=== PATIENT | female | born 1930 | race Caucasian/White ===

== ENCOUNTER 2016-09-08 11:50 | Inpatient (IN) | payer MEDICARE, OTHER ==
[2016-09-07 23:45] VITALS: RESP 28
[~2016-09-08] VITALS: Ht 167.6 cm; Wt 71.1 kg
[~2016-09-08 11:50] MED LIST: ACET650T85 PO; AMIO200T PO; AMLO2.5T2 PO; CLON-379 PO; EPINEPHrine 0.1 MG/ML SYG ONE; ESCI10TA PO; FURO40TA4 PO; INSU100C SC; INSU100C3; LEVA0.6320 HHN; MAGN311T3 PO; NA BICARBONATE 8.4% 50 ML SYG ONE; NITR1PAT5 TOP; OLAN5TAB19 PO; OSCAL PO; PRED20TA PO; ROCURONIUM 50 MG INJ ONE; RTATR HHN; [UNRECOGNIZED DRUG - CODE] IVPB
[2016-09-08] MEDS ORDERED: PROPOFOL 100 ML IV STA (11:57)
[2016-09-08] MEDS ORDERED: HYDROmorphONE 1 MG/ML SYG IV ONE (12:00)
[2016-09-08] MEDS ORDERED: MIDAZOLAM (DRIP) 50 mg/50 mL 50 ML IV STA (12:27)
[2016-09-08] MEDS ORDERED: ALBUTEROL 0.5% (NEB) 2.5 MG/0.5 ML AMP INH STA (12:27)
[2016-09-08] MEDS ORDERED: LORAZEPAM 2 MG INJ ONE (12:28)
[2016-09-08] MEDS ORDERED: LORAZEPAM 2 MG INJ IV ONE (12:30)
[2016-09-08] MEDS ORDERED: CEFEPIME 1GM/50 ML (PMX) 50 ML IVPB ONE (12:30)
[2016-09-08] MEDS ORDERED: SOD CHLORIDE 0.9% 1,000 ML IV ONE (12:30)
[2016-09-08 12:37] LABS: ADD SCAN DIFF NO
[2016-09-08] MEDS ORDERED: DEXMEDETOMIDINE HCL 200 MCG in SOD CHLORIDE 0.9% 48 ML IV STA (12:39)
[2016-09-08 12:40] LABS: ABNORMAL IP MESSAGE 1; HEMATOCRIT 33.3 % (37.0-47.0); HEMOGLOBIN 10.9 g/dl (12.0-16.0); MEAN CORPUSCULAR HEMOGLOBIN 32.3 pg (29.0-33.0); MEAN CORPUSCULAR HGB CONC 32.7 g/dl (32.0-37.0); MEAN CORPUSCULAR VOLUME 98.8 fl (82.0-101.0); MEAN PLATELET VOLUME 14.8 fl (7.4-10.4); PLATELET COUNT 80 10^3/UL (140-415); RED BLOOD COUNT 3.37 10^6/ul (4.20-5.40); RED CELL DISTRIBUTION WIDTH 14.7 % (11.5-14.5); WHITE BLOOD COUNT 6.2 10^3/ul (4.8-10.8)
[2016-09-08 12:49] LABS: POTASSIUM 3.8 mmol/L (3.5-5.1)
[2016-09-08 12:51] LABS: ALBUMIN/GLOBULIN RATIO 0.86; CREATININE 2.67 mg/dl (0.44-1.00); INR 3.4; PROTIME 34.9 Sec (12.2-14.2); PT RATIO 2.7; TOTAL PROTEIN 4.3 g/dl (6.1-8.1)
[2016-09-08 12:52] LABS: CALCIUM 9.2 mg/dl (8.4-10.2)
[2016-09-08 13:05] LABS: ADD UMIC YES; URINE BILIRUBIN (Dip) 1+ (NEGATIVE); URINE BLOOD (Dip) 1+ (NEGATIVE); URINE COLOR YELLOW (YELLOW); URINE GLUCOSE (Dip) NEGATIVE (NEGATIVE); URINE KETONES (Dip) TRACE (NEGATIVE); URINE LEUKOCYTE ESTERASE (Dip) 2+ (NEGATIVE); URINE NITRITE (Dip) NEGATIVE (NEGATIVE); URINE TOTAL PROTEIN (Dip) 1+ (NEGATIVE); URINE UROBILINOGEN (Dip) 0.2 E.U./dL (0.1-1.0)
[2016-09-08 13:10] LABS: AADO2 Arterial 287.2 mmHg (7.0-24.0); Allen Test ACCEPTAB; Arterial Base Excess -11.5 mmol/L (-3.0-3); Arterial COHb 0.2 % (0.0-3.0); Arterial Fraction of Oxyhgb 98.7 % (93.0-99.0); Arterial HCO3 11.4 mmol/L (22.0-26.0); Arterial MetHb 0.3 % (0.0-1.5); Arterial Total Hemglobin 12.3 g/dl (12.0-18.0); MODE VENT - AC
[2016-09-08 13:10] LABS: TROPONIN-I 2.31 ng/ml (0.00-0.12)
[2016-09-08 13:15] LABS: BURR CELLS FEW; LYMPHOCYTES # 2.4 10^3/ul (0.8-2.9); MONOCYTE # 0.2 10^3/ul (0.3-0.9); NEUTROPHIL # 3.6 10^3/ul (1.6-7.5); OVALOCYTES OCCASIONAL
[2016-09-08 13:18] LABS: BACTERIA,URINE FEW; SQUAMOUS EPITHELIAL CELL,UR FEW; URINE RBCS 0-2 /HPF (0)
[2016-09-08] MEDS ORDERED: DOCU-159 PO (13:18)
[2016-09-08] MEDS ORDERED: BUME1TAB18 PO (13:18)
[2016-09-08] MEDS ORDERED: DULR PR (13:19)
[2016-09-08] MEDS ORDERED: FLEETOIL PR (13:20)
[2016-09-08] MEDS ORDERED: DEXT38GE15 PO (13:21)
[2016-09-08] MEDS ORDERED: MAGN400O4 PO (13:21)
[2016-09-08] MEDS ORDERED: CALC500T91 PO (13:22)
[2016-09-08] MEDS ORDERED: MULTI PO (13:22)
[2016-09-08] MEDS ORDERED: POTA20TA96 PO (13:23)
[2016-09-08] MEDS ORDERED: PANT40TA3 PO (13:23)
[2016-09-08] MEDS ORDERED: SENN-53 PO (13:24)
[2016-09-08] MEDS ORDERED: CRAN3875 PO (13:24)
[2016-09-08] MEDS ORDERED: RIVA15TA PO (13:25)
[2016-09-08] MEDS ORDERED: HYDROCORTISONE 100 MG INJ IV ONE ×2 (13:30→14:00)
--- NOTE | 2016-09-08 13:33 | ERA ---
ER Documentation Chief Complaint Date/Time DATE: 09/08/16 TIME: 13:13 Chief Complaint BIB RA39 FOR EVAL OF STEMI FROM EKG IN FIELD. HPI 86-year-old woman brought in by EMS from group home for dyspnea and low oxygen saturation. Patient also had decreased mental status during this time. Prior to the shortness of breath patient had no complaints of chest pain or palpitations, no recent fevers or chills, no vomiting or diarrhea. HPI was limited as patient was nonverbal although supplemented by speaking to EMS, reviewing past medical history, group home records, and speaking to nurses. ROS All systems reviewed and are negative except as per history of present illness. Medications Home Meds Reported Medications Rivaroxaban* (Xarelto*) 15 Mg Tablet, 15 MG PO WITH BREAKFAST DINNE, TAB 09/08/16 Cran/Vitc/Mannose/Inulin/Brom (Uti-Stat Liquid) 3,875 Mg/30 Ml Liquid, 3875 MG PO BID 09/08/16 Sennosides* (Senna Lax*) 8.6 Mg Tablet, 1 TAB PO DAILY, TAB 09/08/16 Pantoprazole* (Protonix*) 40 Mg Tablet.dr, 40 MG PO AC BREAKFAST, TAB 09/08/16 Potassium Chloride* (Potassium Chloride*) 20 Meq Tablet.er, 20 MEQ PO BID, TAB.SA 09/08/16 Calcium Carbonate ([id number]) 500 Mg Tablet, 500 MG PO DAILY, TAB 09/08/16 Multivitamins* (Theragran*) 1 Tab Tab, 1 TAB PO DAILY, TAB 09/08/16 Magnesium Hydroxide* (Milk Of Magnesia*) 400 Mg/5 Ml Oral.susp, 30 ML PO Q24H Y for CONSTIPATION, ML 09/08/16 Dextrose (Glucose Gel) 38 Gm Gel..gram., 1 APPLIC PO BID Y for blood sugar below 60 09/08/16 Mineral Oil* (Fleet* Mineral Oil Enema) 133 Ml Oil, 133 ML MA DAILY Y for CONSTIPATION, ENEMA 09/08/16 Bisacodyl* (Bisacodyl*) 10 Mg Supp, 10 MG MA Q24H Y for CONSTIPATION, SUPP 09/08/16 Docusate Sodium* (Docusate Sodium*) 100 Mg Capsule, 200 MG PO QHS, #30 CAP 09/08/16 Bumetanide* (Bumetanide*) 1 Mg Tablet, 1 MG PO BID, TAB 09/08/16 Acetaminophen (Tylenol 8 Hour) 650 Mg Tablet.sa, 650 MG PO Q4H PRN 06/12/11 Amiodarone Hcl* (Amiodarone Hcl*) 200 Mg Tablet, 200 MG PO DAILY 06/12/11 Discontinued Reported Medications Olanzapine (Zyprexa) 5 Mg Tablet, PO HS 06/12/11 Escitalopram Oxalate* (Lexapro*) 10 Mg Tablet, PO DAILY 06/12/11 Insulin Lispro (Humalog) 100 U/Ml Cartridge, 4 UNITS SC TID 06/12/11 Insulin Aspart (Novolog) 100 U/Ml Cartridge 06/12/11 Magnesium Hydroxide (Milk Of Magnesia) 311 Mg Tab.chew, 30 PO HS 06/12/11 Clonidine Hcl* (Clonidine Hcl*) 0.1 Mg Tab, PO Q6H PRN 06/12/11 Levalbuterol (Xopenex) 0.63 Mg/3 Ml Nebu, HHN Q6H PRN 06/12/11 Ipratropium Webb* (Atrovent*) 2.5 Ml Nebu, HHN Q6H PRN 06/12/11 Levofloxacin/Dextrose 5%-Water (Levaquin 250 Mg/50 Ml D5w) 250 Mg/50 Ml Piggyback, IVPB DAILY 06/12/11 Prednisone (Prednisone) 20 Mg Tablet, PO DAILY 06/12/11 Nitroglycerin* (Nitroglycerin* Patch) 1 Patch .24 H Patch.td24, TOP BID 06/12/11 [Oscal] No Conflict Check, 500 MG PO DAILY 06/12/11 Amlodipine Besylate* (Norvasc*) 2.5 Mg Tablet, PO DAILY 06/12/11 Levalbuterol (Xopenex) 0.63 Mg/3 Ml Nebu, HHN Q6H PRN 06/12/11 Furosemide (Lasix) 40 Mg Tab, PO DAILY 06/12/11 Allergies Allergies: Coded Allergies: No Known Allergy (Verified , 06/12/11) PMhx/Soc Atrial fibrillation, congestive heart failure, previous anasarca, chronic kidney disease, hypertension, thrombocytopenia, cardiomegaly, dementia, chronic obstructive pulmonary disease History of Surgery: No Anesthesia Reaction: No Hx Neurological Disorder: No Hx Respiratory Disorders: Yes (PNEUMONIA) Hx Cardiac Disorders: Yes (CHF) Hx Psychiatric Problems: Yes (PSYCHOSIS) Hx Miscellaneous Medical Probl: Yes (htn, DMpericardial effusion,afib,COPD, asthma) Hx Alcohol Use: No Hx Substance Use: No Hx Tobacco Use: No FmHx Family History: coronary disease Physical Exam Vitals Vital Signs Date Time Temp Pulse Resp B/P Pulse Ox O2 Delivery O2 Flow Rate FiO2 09/08/16 12:54 59 76/36 21 Mechanical Ventilator 09/08/16 12:23 100 24 100 09/08/16 11:50 96.9 176 10 50/23 86 09/08/16 11:50 Non Rebreather 15 09/07/16 23:45 94 28 100 50 Physical Exam GENERAL: Elderly, chronically debilitated woman, unresponsive, agonal breaths, afebrile HEENT: Dry mucous membranes, pink conjunctivo-, no cervical spine deformity, pupils equal round reactive to light NEURO: Patient withdraws from pain, pupils equal round reactive to light, eyes closed, nonverbal CARDIAC: Tachycardic and regular, hypotensive LUNGS: Poor breath sounds bilaterally, crackles bilaterally, no wheezing or stridor ABDOMEN: Soft nontender, no guarding, no rigidity, no rebound, no psoas sign no obturator sign. Normoactive bowel sounds SKIN: Cool and dry, mottled to the distal extremities, no lacerations or abrasions noted EXTREMITIES: No clubbing, calves are bilaterally symmetrical, no Homans sign, mottled extremities bilaterally, poor distal pulses PSYCH: Unable to assess Result Diagram: 09/09/166 09/09/166 Results 24 hrs Laboratory Tests Test 09/08/16 11:57 09/08/16 12:30 09/08/16 12:45 Arterial Blood HCO3 11.4mmol/L Arterial Blood Base Excess -11.5mmol/L Arterial Blood Oxygen Saturation 99.2mmHG Christofer Test ACCEPTAB Arterial Blood Gas Puncture Site Right Radial Arterial Blood Carboxyhemoglobin 0.2% Arterial Blood Date Drawn 09/08/2016 1:00:49 PM Arterial Blood Methemoglobin 0.3% Arterial Blood pCO2 (Temp correct) 19.7mmhg Arterial Blood pH (Temp corrected) 7.380 Arterial Blood pO2 (Temp corrected) 406.1mmHG Blood Gas A-a O2 Differential 287.2mmHg Blood Gas Actual Respiration Rate 24 Blood Gas Low PEEP Setting 5.0cmH2O Blood Gas Modality VENT - AC Blood Gas Notified Time 09/08/2016 1:10:43 PM Blood Gas Notified Whom RT Blood Gas Respiration Rate 14.0 Blood Gas Specimen Source Blood arterial Blood Gas Temperature 37.0C Blood Gas Tidal Volume 500.0mL FiO2 100.0% Oxyhemoglobin Percent 98.7% Total Hemoglobin 12.3g/dl Activated Partial Thromboplast Time 30.0Sec Alanine Aminotransferase (ALT/SGPT) 48IU/L Albumin 2.0g/dl Albumin/Globulin Ratio 0.86 Alkaline Phosphatase 48IU/L Anion Gap 18 Aspartate Amino Transf (AST/SGOT) 50IU/L B-Type Natriuretic Peptide 75754BW/ML Blood Urea Nitrogen 108mg/dl Calcium Level 9.2mg/dl Carbon Dioxide Level 18mmol/L Chloride Level 118mmol/L Creatinine 2.67mg/dl Differential Comment MANUAL DIFF Direct Bilirubin 0.00mg/dl Giant Platelets OCCASIONAL Globulin 2.30g/dl Glucose Level 117mg/dl Hematocrit 33.3% Hemoglobin 10.9g/dl INR International Normalized Ratio 3.40 Indirect Bilirubin 1.0mg/dl Lactic Acid Level 3.8mmol/L Lymphocytes # 2.410^3/ul Lymphocytes % 39.0% Mean Corpuscular Hemoglobin 32.3pg Mean Corpuscular Hemoglobin Concent 32.7g/dl Mean Corpuscular Volume 98.8fl Mean Platelet Volume 14.8fl Monocytes # 0.210^3/ul Monocytes % 3.0% Neutrophils # 3.610^3/ul Neutrophils % 58.0% Ovalocytes OCCASIONAL Platelet Count 8010^3/UL Potassium Level 3.8mmol/L Prothrombin Time 34.9Sec Prothrombin Time Ratio 2.7 Red Blood Count 3.3710^6/ul Red Cell Distribution Width 14.7% Sodium Level 150mmol/L Thyroid Stimulating Hormone (TSH) 2.590MIU/L Total Bilirubin 1.0mg/dl Total Protein 4.3g/dl Troponin I 2.310ng/ml White Blood Count 6.210^3/ul Urine Bacteria FEW Urine Bilirubin 1+ Urine Clarity SLIGHTLY CLOUDY Urine Color YELLOW Urine Glucose NEGATIVE% Urine Hemoglobin 1+ Urine Ictotest NEGATIVE Urine Ketones TRACE Urine Leukocyte Esterase 2+ Urine Microscopic RBC 0-2/HPF Urine Microscopic WBC 10-25/HPF Urine Nitrite NEGATIVE Urine Specific [place] 1.025 Urine Squamous Epithelial Cells FEW Urine Total Protein 1+ Urine Urobilinogen 0.2 E.U./dL Urine pH 5.0 Current Medications Medications (Trade) Dose Ordered Sig/[place] Route PRN Reason Start Time Stop Time Status Last Admin Dose Admin Hydromorphone HCl 1 mg 1 mg ONCE ONCE IV 09/08/16 12:00 09/08/16 12:01 DC Propofol (Diprivan) 100 ml @ 0 mls/hr ONCE STAT IV 09/08/16 11:57 09/08/16 12:30 DC Lorazepam (Ativan) 2 mg STK-MED ONCE .ROUTE 09/08/16 12:28 09/08/16 12:29 DC Lorazepam 2 mg 2 mg ONCE ONCE IV 09/08/16 12:30 09/08/16 12:32 DC 09/08/16 12:38 Midazolam HCl 50 ml @ 3 mls/hr ONCE STAT IV 09/08/16 12:27 09/09/16 01:06 DC Norepinephrine 250 ml @ 1.875 mls/ hr TITRATE IV 09/08/16 12:30 09/09/16 03:02 Sodium Chloride 1,000 ml @ 2,000 mls/hr Q30M ONCE IV 09/08/16 12:30 09/08/16 12:59 DC 09/08/16 12:47 Cefepime HCl (Maxipime 1gm/50 ml (Pmx)) 50 ml @ 100 mls/hr ONCE ONCE IVPB 09/08/16 12:30 09/08/16 12:59 DC 09/08/16 13:19 Albuterol 10 mg 10 mg ONCE STAT INH 09/08/16 12:27 09/08/16 12:32 DC 09/08/16 13:26 Dexmedetomidine HCl/Sodium Chloride (Precedex/NS) 50 ml @ 0 mls/hr TITRATE STAT IV 09/08/16 12:39 09/08/16 12:41 DC 09/08/16 13:21 Procedures/MDM IV line was established patient was placed on eyelet cutter rhythm strip revealed a wide-complex tachycardia at 170 bpm. Patient was afebrile hypotensive, unresponsive with agonal breathing. Endotracheal Intubation performed by me, indication was hypotension, hypoxia, and respiratory failure: Pre assessment performed. Paralyzed with succinylcholine 100 mg IV 2 Pre-oxygenation performed with 100% oxygen RSI: Performed w/o complication or hypoxic events. Medications as ordered. Blade: Mac 4 ET Tube: 7.5 cm Depth: 21 cm at the lip Intubation confirmed by colorimetric CO2, equal breath sounds, quiet over the stomach. Central Line Placement by me: Patient consented, sterilely draped, full prep, gown, glove, mask, time out performed. Anesthesia: 1% lidocaine locally Location: Right subclavian vein Device: Multiple lumen Technique: Seldinger technique. Secured with suture. Results: Venous return from all ports with easy saline flush. No complications. The entire Guide wire retrieved and disposed of. Chest X-ray 1V Interpreted by me: 4 cm above the raf ET tube. Central line is in place in the right subclavian vein there is pulmonary infiltrates in the right middle and lower lobe, cardiomegaly, no pneumothorax, no end of the diaphragm. Post intubation patient remained hypotensive with a wide-complex tachycardia, given her history of atrial fibrillation I treated her with diltiazem 25 mg IV 1 with no response or change in her rhythm, I then administered amiodarone 150 mg IV 2 doses and again with no change in her cardiac rhythm. Given her continued refractory hypotension I performed electrical synchronized cardioversion with 120 J of electricity and her rate immediately improved to about 80 bpm and continued atrial fibrillation, although patient did lose pulses and required 1 round of advanced cardiac life support with chest compressions and 1 dose of epinephrine 1 mg IV. Please refer to resuscitation log for times, dosages, and medications given during the short resuscitation. Initial EKG performed immediately post intubation revealed a wide-complex tachycardia most likely atrial fibrillation with rapid ventricular rate of 171 bpm, left axis deviation and a right bundle branch block EKG #2 was performed after electrical cardioversion reveals an atrial fibrillation rate controlled a 67 bpm, normal axis narrow QRS complex with PVCs , no concerning ST elevation or depression noted. EKG #3 was performed after IV fluid hydration again revealed an atrial fibrillation bradycardic at 54 bpm, normal axis, narrow QRS complex with poor amplitude, positive PVCs, no acute ST elevation or depression noted. I administered about 4 L normal saline intravenously for refractory hypotension followed by norepinephrine drip titrated to keep systolic blood pressure over 90 mmHg. Patient also received albuterol 10 mg via nebulizer, cefepime 1 g IV, vancomycin 1 g IV, and hydrocortisone 100 mg IV 1. For sedation I gave her a small bolus of lorazepam followed by midazolam drip. Postintubation ABG revealed a pH of 7.38, PCO2 20, PO2 406, revealing good oxygenation and respiratory alkalosis, patient is breathing over the mechanical ventilator and so tidal volume reduced to 450, FiO2 reduced to 50%. CBC was unremarkable with mild thrombocytopenia 80,000, electrolytes revealed dehydration and renal insufficiency with a BUN/creatinine of 108/2.7, sodium elevated at 150, liver function tests were normal, troponin elevated at 2.3, lactic acid elevated at 3.8, urine analysis was positive for infection. BNP elevated at about 60,000. Patient will be admitted to the intensive care unit under Dr. Schmidt who I spoke to. Pulmonology was consulted and saw the patient at the bedside. Patient's infectious symptoms have not stabilized and the patient is at risk of rapid decompensation. The patient will be admitted for careful hydration, antibiotic therapy, and infectious source control. Severe Sepsis Assessment: Infectious Source: Urinary tract infection End organ damage indicated by: Lactate > 2.3 mmol/L Hypotension( SBP < 90 or >40 mmHG drop or MAP < 65) Acute Resp Failure (sat < 92% w/o oxygen) Severe Sepsis Managment: Blood Cultures X 2 before broad spectrum antibiotics initiated within 3 hours of recognition. 30 ml/kg NS bolus Completed Initial Lactate: 3.8 Repeat Lactate 4.5 Critical Care: Time: 45 minutes Treatments/Evaluations: Emergent fluid management, while maintaining close respiratory support. Immediate broad spectrum antibiotic therapy. Simultaneous assessment for possible sources in order to direct therapy. Consideration for invasive and chemical support to prevent respiratory or cardiac collapse. Septic Shock Assessment (1 hour post 30 ml/kg fluid bolus): Hypotension (SBP < 90 or 40 mmHg drop, MAP < 65): Yes Lactic acid > 4.0 yes Perfusion Reassessment for Septic Shock: Temp afebrile, Pulse 60, RR 24, BP 90/60 Heart Exam: 60 Lung Exam: No Crackles Capillary Refill: Delayed Peripheral Pulses: Radially present Skin: Mottled, pale Hypotensive Treatment (not required for isolated lactic acid elevation): Comfort Care: No Central LIne: Right subclavian vein Vasopressor started: norepinephrine I considered further perfusion assessment with CVP measurement, SCVO2, bedside ultrasound volume assessment, passive leg raise, trial of further fluid bolus. And preceded with all the above Accepting Care Team: Current data and ongoing care discussed. Time: Time of admission Primary Provider: Dr. Schmidt Consulting: Cardiology and pulmonology Outstanding Data: none Departure Diagnosis: Primary Impression: Acute respiratory failure Qualified Code: J96.01 - Acute respiratory failure with hypoxia and hypercapnia Additional Impressions: Atrial fibrillation with RVR Acute encephalopathy Dehydration CHF (congestive heart failure) Qualified Code: I50.23 - Acute on chronic systolic congestive heart failure UTI (urinary tract infection) Qualified Code: N30.00 - Acute cystitis without hematuria Septic shock Condition: Critical SERENA BOATENG MD Sep 08, 2016 13:31
[2016-09-08] MEDS: NORepinephrine 8MG/250 ML (PMX 250 ML IV SCH ×3 (13:39→22:22)
--- NOTE | 2016-09-08 13:48 | RADRPT ---
PROCEDURE: XR Chest. CLINICAL INDICATION: Sepsis. Shortness of breath. Endotracheal tube position. TECHNIQUE: Single frontal view. COMPARISON: 06 12 20:11. FINDINGS: The endotracheal tube tip is at the level of the lower clavicles and is in satisfactory position. T he right subclavian vein catheter tip is in the cavoatrial junction region.. There is extensive pat lucia consolidation throughout the right lung consistent with pneumonia. The left lung is clear. The heart is enlarged. Calcification is present in the aorta consistent with atherosclerosis. There is no pleural effusion. There is no pneumothorax. IMPRESSION: 1. Endotracheal tube and right subclavian vein catheter in satisfactory position. 2. Extensive right sided pneumonia. 3. Cardiomegaly and atherosclerosis. 4. No pneumothorax. RPTAT: QQ .Jose Watts MD, MD Date Time Electronically viewed and signed by .Jose Watts MD, MD on 09/08/2016 13:47 .R/
--- NOTE | 2016-09-08 13:53 | CONS ---
Date/Time of Note Date/Time of Note DATE: 09/08/16 TIME: 13:48 Assessment/Plan Assessment/Plan Additional Assessment/Plan Ventilator settings are AC of 14, tidal volume 450, PEEP of 5, 50% FiO2. Next Chest x-ray was reviewed showing a right upper and lower lobe infiltrates. Assessment recommendations; 1. patient admitted with cardiac arrest status post CPR with revival of vital signs currently extremely hypotensive on high-dose pressor support. 2. Sepsis from severe pneumonia. Currently on appropriate antibiotic regimen. 3. Status post adequate fluid resuscitation. 4. Long-term prednisone use , likely with underlying adrenal insufficiency. Continue current treatment. Patient prognosis appears extremely poor. At this time I would recommend adding a cortisone 100 mg IV every 6 hours at least for 4 doses. Consultation Date/Type/Reason Admit Date/Time Date of Consultation: Sep 08, 2016 Type of Consultation: Pulmonary/critical care Hx of Present Illness Consultations requested for management of respiratory failure. Next History presenting; patient is a 86-year-old white lady who was brought into the hospital after the patient apparently sustained a cardiac arrest altered of the hospital the patient also required CPR lasting about 3 minutes with revival of vital signs. By the time I saw the patient and ER the patient is orally intubated is severely hypotensive with maxed out doses of Levophed. Patient also has been adequately fluid resuscitated. She was obtained from medical records. Next Past medical history; Medications; were reviewed. Allergies; are none. Next Social history; not available. Family history, occupational history is not available. Review of systems; currently under able to be obtained. Next General exam; elderly lady orally intubated, unresponsive. 1. History of renal insufficiency. 2. History of COPD, patient on long-term steroid use. 3. History of abdominal surgery. Exam/Review of Systems Vital Signs Vitals Vital Signs Date Time Temp Pulse Resp B/P Pulse Ox O2 Delivery O2 Flow Rate FiO2 09/08/16 13:40 46 70/47 09/08/16 13:13 19 96 Mechanical Ventilator 09/08/16 12:23 100 09/08/16 11:50 96.9 09/08/16 11:50 15 Exam H EENT examination; supple neck, positive JVD. No lymphadenopathy. Midline trachea. Small pupils bilaterally. Vision is fair dentition. No neck masses. No thyromegaly. Chest examination; poor breath sounds bilaterally. No added sounds. S1-S2 audible, irregular rhythm. Abdomen examination soft, umbilicus is inverted. There is a very small epigastric scar present. Bowel sounds are absent. Extremity exam is; no peripheral edema. Femoral pulses 1+ bilaterally. Dorsal pedis and posterior tibial pulses are palpable bilaterally. There are chronic appearing lower extremity skin changes. 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 Results Result Diagram: 09/08/16 1230 09/08/16 1230 Results 24 hrs Laboratory Tests Test 09/08/16 11:57 09/08/16 12:30 09/08/16 12:45 Arterial Blood HCO3 11.4 L Arterial Blood Base Excess -11.5 L Arterial Blood Oxygen Saturation 99.2 Christofer Test ACCEPTAB Arterial Blood Gas Puncture Site Right Radial Arterial Blood Carboxyhemoglobin 0.2 Arterial Blood Date Drawn 09/08/2016 1:00:49 PM Arterial Blood Methemoglobin 0.3 Arterial Blood pCO2 (Temp correct) 19.7 L Arterial Blood pH (Temp corrected) 7.380 Arterial Blood pO2 (Temp corrected) 406.1 H Blood Gas A-a O2 Differential 287.2 H Blood Gas Actual Respiration Rate 24 Blood Gas Low PEEP Setting 5.0 Blood Gas Modality VENT - AC Blood Gas Notified Time 09/08/2016 1:10:43 PM Blood Gas Notified Whom RT Blood Gas Respiration Rate 14.0 Blood Gas Specimen Source Blood arterial Blood Gas Temperature 37.0 Blood Gas Tidal Volume 500.0 FiO2 100.0 Oxyhemoglobin Percent 98.7 Total Hemoglobin 12.3 Activated Partial Thromboplast Time 30.0 Alanine Aminotransferase (ALT/SGPT) 48 Albumin 2.0 L Albumin/Globulin Ratio 0.86 Alkaline Phosphatase 48 Anion Gap 18 H Aspartate Amino Transf (AST/SGOT) 50 H B-Type Natriuretic Peptide 45492 H Blood Urea Nitrogen 108 H Calcium Level 9.2 Carbon Dioxide Level 18 L Chloride Level 118 H Creatinine 2.67 H Differential Comment MANUAL DIFF Direct Bilirubin 0.00 Giant Platelets OCCASIONAL Globulin 2.30 Glucose Level 117 Hematocrit 33.3 L Hemoglobin 10.9 L INR International Normalized Ratio 3.40 Indirect Bilirubin 1.0 Lactic Acid Level 3.8 H Lymphocytes # 2.4 Lymphocytes % 39.0 Mean Corpuscular Hemoglobin 32.3 Mean Corpuscular Hemoglobin Concent 32.7 Mean Corpuscular Volume 98.8 Mean Platelet Volume 14.8 H Monocytes # 0.2 L Monocytes % 3.0 Neutrophils # 3.6 Neutrophils % 58.0 Ovalocytes OCCASIONAL Platelet Count 80 L Potassium Level 3.8 Prothrombin Time 34.9 H Prothrombin Time Ratio 2.7 Red Blood Count 3.37 L Red Cell Distribution Width 14.7 H Sodium Level 150 H Total Bilirubin 1.0 Total Protein 4.3 L Troponin I 2.310 *H White Blood Count 6.2 Urine Bacteria FEW Urine Bilirubin 1+ H Urine Clarity SLIGHTLY CLOUDY Urine Color YELLOW Urine Glucose NEGATIVE Urine Hemoglobin 1+ H Urine Ictotest Pending Urine Ketones TRACE H Urine Leukocyte Esterase 2+ H Urine Microscopic RBC 0-2 Urine Microscopic WBC 10-25 Urine Nitrite NEGATIVE Urine Specific [place] 1.025 Urine Squamous Epithelial Cells FEW Urine Total Protein 1+ H Urine Urobilinogen 0.2 E.U./dL Urine pH 5.0 Medications Medications Current Medications Norepinephrine 250 ml @ 1.875 mls/ hr TITRATE IV Last administered on 13:39; Admin Dose 18.75 MLS/HR; Start 09/08/16 at 12:30 Vancomycin HCl (Vancocin) 250 ml @ 125 mls/hr ONCE IVPB ; Start 09/08/16 at 14: 00; Stop 09/08/16 at 15:59 JENSEN LOPEZ Sep 08, 2016 13:53
[2016-09-08] MEDS ORDERED: VANCOMYCIN 1 GM (PMX) 250 ML IVPB SCH (14:00)
[2016-09-08 14:14] LABS: ICTOTEST NEGATIVE (NEGATIVE)
--- NOTE | 2016-09-08 16:25 | QN ---
Documentation Comment A/P SEPSIS TARIK LOW PLATELET AFIB ASHD ANEMIA DEHYDRATION PLAN PER ORDER ALLYN BERMUDEZ MD Sep 08, 2016 16:25
[2016-09-08] MEDS ORDERED: ALBUTEROL/IPRATROPIUM (NEB) 3 ML AMP NEB PRN (16:30)
[2016-09-08] MEDS ORDERED: BISACODYL (EC) 5 MG TAB PO PRN (16:30)
[2016-09-08] MEDS ORDERED: VANCOMYCIN IV PER PHARMACY XX SCH (16:30)
[2016-09-08] MEDS ORDERED: ONDANSETRON 4 MG INJ IV PRN (16:30)
[2016-09-08] MEDS ORDERED: ACETAMINOPHEN 650 MG SUPP PR PRN (16:30)
[2016-09-08] MEDS ORDERED: NITROGLYCERIN (SL) 0.4 MG TAB SL PRN (16:30)
[2016-09-08] MEDS ORDERED: NALOXONE (0.4 MG/ML) INJ IV PRN (16:30)
[2016-09-08] MEDS ORDERED: ACETAMINOPHEN 325 MG TAB PO PRN (16:30)
[2016-09-08] MEDS ORDERED: MAGNESIUM HYDROXIDE 30ML CUP PO PRN (16:30)
[2016-09-08] MEDS ORDERED: DOCUSATE SODIUM 100 MG CAP PO PRN (16:30)
[2016-09-08] MEDS ORDERED: FLUMAZENIL 0.5 MG INJ IV PRN (16:30)
[2016-09-08] MEDS ORDERED: ACETAMINOPHEN 650MG/20.3ML CUP PO PRN (16:30)
[2016-09-08] MEDS: DEXTROSE 5%-0.45% NACL 1,000 ML IV SCH ×2 (16:59→23:06)
--- NOTE | 2016-09-08 17:12 | CONS ---
DATE OF ADMISSION: 09/08/2016 DATE OF CONSULTATION: 09/08/2016 REASON FOR CONSULTATION: Hypotension, cardiac arrhythmia. REQUESTING PHYSICIAN: Dr. Wilmar Bermudez. HISTORY OF PRESENT ILLNESS: Ms. Douglas is an 86-year-old female with a history of atrial fibrillati on, previously on amiodarone and Xarelto, diabetes mellitus, COPD, hypertension, congestive heart fa ilure on medications, who presented with altered mental state, hypotension, tachycardia, respiratory failure. Upon arrival in the emergency department, temperature 96.9, blood pressure 50/23, pulse 1 76, respiratory rate 24, saturating 86% on 15 liters. Patient's labs were notable for white count o f 6.2, hemoglobin 10.9, platelet count of 80, sodium 150, potassium 2.8, creatinine 2.6, BUN 108, T 50, ALT 48. Troponin 2.31. BNP of 59,800. White blood cell count 6.2, hemoglobin 10.9, platelet count of 80. INR 3.4. UA positive. ABG revealing a pH of 7.38, PaO2 of 406, a pCO2 of 19. Patie nt subsequently upon arrival in the emergency department required emergent intubation and received c ardioversion for atrial fibrillation with rapid ventricular response due to hypertensive shock state . Patient was shocked and returned to a sinus rhythm, sinus lorenzo, required ACLS protocol with epin ephrine, with thereafter increase in heart rate, and patient has remained with reasonable heart rate on pressure support with blood pressures most recently in the 80s on increasing doses of Levophed. PAST MEDICAL HISTORY: As above in HPI. MEDICATIONS PRIOR TO ADMIT: 1. Xarelto 15 mg daily. 2. Amiodarone 200 mg daily. 3. Tylenol 650 mg q.4h. p.r.n. 4. Bumex 1 mg p.o. b.i.d. 5. Potassium chloride 20 mEq b.i.d. 6. Dulcolax p.r.n. 7. Magnesium hydroxide p.r.n. 9. Mineral oil p.r.n. 9. Protonix 40 mg daily. ALLERGIES: NO KNOWN DRUG ALLERGIES. SOCIAL HISTORY: No tobacco, ETOH, or illicit drug use. FAMILY HISTORY: No history of sudden cardiac or early CAD. REVIEW OF SYSTEMS: As noted above in HPI. CONSTITUTIONAL: No current fevers. PULMONARY: Respiratory failure, status post intubation. GASTROINTESTINAL: No vomiting. GENITOURINARY: Renal failure. PSYCHIATRIC: No documented psychiatric history. NEUROLOGIC: Altered mental state, encephalopathy. CARDIOVASCULAR: Paroxysmal atrial fibrillation, status post cardioversion, hypotension, positive tr oponin. ENDOCRINE: Diabetes mellitus. PHYSICAL EXAMINATION: VITAL SIGNS: Temperature 96.9, blood pressure most recently 97/59, pulse in the 50s, saturating 94% . GENERAL: The patient is intubated, nonresponsive. NECK: JVP approximately 10 cm water. CHEST: Bibasilar crackles. HEART: Bradycardic. Regular rhythm. Normal S1, S2, I/ systolic murmur. ABDOMEN: Positive bowel sounds, soft. EXTREMITIES: Trace edema bilaterally. Difficult to palpate distal pulses bilaterally, posterior ti bial, mottling of the lower extremities. LABORATORIES: As above in HPI, with most recent from today, sodium 150, potassium 3.8, creatinine 2 .67, BUN of 108. AST 50, ALT 40, troponin 2.31. BNP 59,800. INR 3.4. White count 6.2, hemoglobin 10.9, platelet count of 80. ABG revealing a pH of 7.38, PaO2 406, pCO2 of 19.7. UA positive. IMAGING STUDIES: Chest x-ray from today revealing endotracheal tube and right subclavian vein win[address] ter in satisfactory position, extensive right-sided pneumonia, cardiomegaly, and atherosclerosis. ECG: Initially revealed a wide complex tachycardia at a rate of 171 with, right superior axis devia tion, poor R-wave progression across the precordial leads, status post cardioversion. Followu p EKG revealed a rhythm more were consistent with sinus bradycardia, prolonged first-degree AV block , frequent PVCs, low voltage. IMPRESSION: 1. Hypotension/shock state, question septic versus cardiogenic, likely septic. 2. Wide complex tachycardia concerning for a nonsustained ventricular tachycardia, status post card ioversion. 3. Paroxysmal atrial fibrillation. 4. Respiratory failure, status post intubation. 5. Coagulopathy secondary to Xarelto. 6. Urinary tract infection. 7. Encephalopathy. 8. Hypernatremia. 9. Non-ST elevation myocardial infarction. 10. Anemia. 11. Diabetes mellitus. RECOMMENDATIONS: 1. At this time, would admit patient to the ICU and maintain on telemetry monitoring. 2. Would place pacer pads on patient's body at this time and follow heart rate and blood pressure c losely. Atropine at bedside. 3. Will continue to trend the patient's cardiac enzymes, assess for any significant ongoing cardiac damage and continue the patient's Levophed pressor support, and will give additional pressors as ne cessary, starting with dopamine. Further define the patient's current ejection fraction. 3. Will additionally check a 2D echocardiogram to further assess patient's ejection fraction, wall motion, or any major valve abnormalities. 4. Continue patient's antibiotics and follow up all culture data. 5. Hold Coumadin given coagulopathy, and as INR has come down, will initiate the patient on aspirin , but will hold at this time given coagulopathy and thrombocytopenia. 6. Continue the patient on vent at this time with ongoing pulmonary consultation and follow the pat ient's volume status closely. Thank you for allowing me to take part in the care of this patient. I will continue to follow along very closely with you. Further recommendations to be made as the patient progresses through her in patient hospital clinical course. Dictated By: SUNITA WASHBURN/WILLIAN Conf#: [id number] DID#: [id number] CC: WILMAR BERMUDEZ MD;*EndCC*
[2016-09-08] MEDS: ALBUTEROL/IPRATROPIUM (NEB) 3 ML AMP NEB SCH ×2 (17:16→21:32)
[2016-09-08] MEDS: DOPamine-D5W 1.6 MG/ML 250 ML IV SCH (18:23)
[2016-09-08 18:54] LABS: CK-MB 5.73 ng/ml (0.0-2.4)
[2016-09-08 19:07] LABS: TROPONIN-I 2.38 ng/ml (0.00-0.12)
[2016-09-08] MEDS ORDERED: PIPER-TAZO 3.375 GM IV (PMX) 100 ML IVPB SCH ×2 (21:00)
[2016-09-08 22:00] VITALS: TEMP 90
[2016-09-08] MEDS: PIPER-TAZO 2.25 GM (PMX) 50 ML IVPB SCH (22:21)
--- NOTE | 2016-09-08 23:33 | QN ---
Documentation Comment [id number] ALLYN BERMUDEZ MD Sep 08, 2016 23:33
[2016-09-09] VITALS (98 sets, daily range): BP systolic 77–145; BP diastolic 17–118; PULSE 78–122; RESP 8–40; Ht 167.6 cm; Wt 71.1 kg
[2016-09-09] MEDS: PIPER-TAZO 2.25 GM (PMX) 50 ML IVPB SCH ×4 (00:23→21:21)
[2016-09-09] MEDS: DEXTROSE 5%-0.45% NACL 1,000 ML IV SCH ×2 (00:24→22:34)
[2016-09-09 01:09] LABS: CK-MB 8.24 ng/ml (0.0-2.4)
[2016-09-09 01:29] LABS: TROPONIN-I 1.65 ng/ml (0.00-0.12)
[2016-09-09] MEDS: MIDAZOLAM (DRIP) 50 mg/50 mL 50 ML IV SCH ×3 (01:58→21:21)
[2016-09-09] MEDS: NORepinephrine 8MG/250 ML (PMX 250 ML IV SCH ×3 (03:02→12:36)
[2016-09-09 04:41] LABS: ADD SCAN DIFF NO
[2016-09-09 04:54] LABS: ABNORMAL IP MESSAGE 1; BASOPHILS % 0.1 % (0.0-2.0); HEMATOCRIT 38.9 % (37.0-47.0); HEMOGLOBIN 12.7 g/dl (12.0-16.0); LYMPHOCYTES # 0.2 10^3/ul (0.8-2.9); LYMPHOCYTES % 1.3 % (15.0-51.0); MEAN CORPUSCULAR HEMOGLOBIN 32.4 pg (29.0-33.0); MEAN CORPUSCULAR HGB CONC 32.6 g/dl (32.0-37.0); MEAN CORPUSCULAR VOLUME 99.2 fl (82.0-101.0); MEAN PLATELET VOLUME 14.4 fl (7.4-10.4); MONOCYTE # 0.5 10^3/ul (0.3-0.9); MONOCYTES % 2.9 % (0.0-11.0); NEUTROPHIL # 17.6 10^3/ul (1.6-7.5); NEUTROPHILS % 95.3 % (39.0-77.0); NUCLEATED RED BLOOD CELLS # 0.1 10^3/ul (0.0-0.0); NUCLEATED RED BLOOD CELLS% 0.4 /100WBC (0.0-0.0); PLATELET COUNT 87 10^3/UL (140-415); RED BLOOD COUNT 3.92 10^6/ul (4.20-5.40); WHITE BLOOD COUNT 18.4 10^3/ul (4.8-10.8)
[2016-09-09] MEDS ORDERED: FUROSEMIDE 20 MG INJ IV ONE (05:00)
[2016-09-09 05:10] LABS: CHOL/HDL RATIO 2.3 RATIO
[2016-09-09] MEDS: ALBUTEROL HFA 8 GM INHALER INH SCH ×5 (05:25→20:06)
[2016-09-09] MEDS: IPRATROPIUM (HFA) 12.9 GM INHALER INH SCH ×5 (05:25→20:05)
[2016-09-09] MEDS: PANTOPRAZOLE 40 MG INJ IV SCH (05:34)
[2016-09-09 06:35] LABS: POTASSIUM 3.9 mmol/L (3.5-5.1)
[2016-09-09 06:38] LABS: CALCIUM 6.9 mg/dl (8.4-10.2); CREATININE 2.58 mg/dl (0.44-1.00)
--- NOTE | 2016-09-09 06:51 | HP ---
DATE OF ADMISSION: 09/08/2016 HISTORY OF PRESENT ILLNESS: Bette Douglas is 86-year-old with history of CAD, CHF , AFib, CKD, thrombocytopenia, anemia presented to this hospital. The patient also has a history of anasarca, CKD, hypertension, thrombocytopenia, UTI and cardiomegaly. Presented with respiratory failure. The patient is currently intubated. The patient previously has ejection fraction of 55% in the past. The patient presented with respiratory failure and confusion and is currently intubated. The patient's laboratory . The patient has troponin 2.30 potassium 3.8, BUN 108, creatinine 2.67, (01:18) 3.8. The patient's chest x-ray shows pneumonia. REVIEW OF SYSTEMS: Cannot be obtained. PAST MEDICAL HISTORY: As mentioned above, CAD, CKD, AFib, thrombocytopenia, anemia. The patient has history of UTI. ALLERGIES: unk FAMILY HISTORY: unk MEDICATION HISTORY: From the [facility], the patient is on 1. Tylenol. 2. Amiodarone. 3. mvi 4. Bumex. 5. Calcium. 6. Cranberry. 7. The patient is on glucose, docusate sodium, . 8. Mineral oil. 9. Fleets enema. 10. Multivitamin. 11. Protonix. 12. Potassium. 13. Xarelto. 14. Senna. PHYSICAL EXAMINATION: GENERAL: The patient is intubated, clinically dehydrated. VITAL SIGNS: Pulse 81, blood pressure 108/50. HEENT: Head is atraumatic, normocephalic. Pupils, PERRLA. NECK: Supple. LUNGS: Clear anteriorly rales, no rhonchi, CARDIOVASCULAR: S1, S2 normal. ABDOMEN: Soft, nontender. Bowel sounds positive. No palpable mass. EXTREMITIES: No cyanosis, clubbing, or edema. CENTRAL NERVOUS SYSTEM: The patient is intubated and sedated. IMPRESSION: 1. Acute ventilator-dependent respiratory failure, severe sepsis. The patient has acute kidney injury, hyponatremia, free water deficit. 2. Metabolic acidosis. The patient has nstemi myocardial infarction. 3. Anemia. PLAN: IV fluid, antibiotics and cardiology consultation and pulmonary consultation. A 2D echo will be ordered. Dictated By: ALLYN SMITH/WILLIAN Conf#: [id number] DID#: [id number] MTDD
--- NOTE | 2016-09-09 09:35 | CONS ---
Date/Time of Note Date/Time of Note DATE: 09/09/16 TIME: 09:31 Assessment/Plan Assessment/Plan Chief Complaint/Hosp Course Consultations requested for management of respiratory failure. Next History presenting; patient is a 86-year-old white lady who was brought into the hospital after the patient apparently sustained a cardiac arrest altered of the hospital the patient also required CPR lasting about 3 minutes with revival of vital signs. By the time I saw the patient and ER the patient is orally intubated is severely hypotensive with maxed out doses of Levophed. Patient also has been adequately fluid resuscitated. She was obtained from medical records. Next Past medical history; Medications; were reviewed. Allergies; are none. Next Social history; not available. Family history, occupational history is not available. Review of systems; currently under able to be obtained. Next General exam; elderly lady orally intubated, unresponsive. 1. History of renal insufficiency. 2. History of COPD, patient on long-term steroid use. 3. History of abdominal surgery. Problems: Additional Assessment/Plan Ventilator settings; AC of 14, tidal volume 450, PEEP of 5, 50% FiO2. Next Assessment recommendations; 1. Patient admitted with cardiac arrest with severe hypotension on high-dose pressor support. 2. Bilateral pneumonia, possibly aspiration. Next 3. Renal insufficiency. 4. Mild thrombocytopenia. 5. Long-term steroid use. Possibly due to underlying COPD. Continue current treatment. Obtain a follow-up chest x-ray. Continue current antibiotic regimen. Continue hydrocortisone at 50 mg IV every 6 hours. Obtain a repeat ABG. Prognosis remains very poor. Consultation Date/Type/Reason Admit Date/Time Sep 08, 2016 at 13:10 Initial Consult Date 09/08/16 Type of Consultation: Pulmonary/critical care 24 HR Interval Summary Free Text/Dictation Patient condition remains critical. Remains ventilator dependent. Also requiring high-dose pressor support for blood pressure maintenance. General exam; elderly lady, or intubated, unresponsive. Currently in no distress Exam/Review of Systems Vital Signs Vitals Vital Signs Date Time Temp Pulse Resp B/P Pulse Ox O2 Delivery O2 Flow Rate FiO2 09/09/16 08:00 111 09/09/16 06:00 95.1 33 94/65 97 Mechanical Ventilator 09/09/16 05:27 50 09/08/16 11:50 15 Intake and Output 09/08/16 09/08/16 09/09/16 15:00 23:00 07:00 Intake Total 2705.6 ml 1106.90 ml Output Total 100 ml 140 ml Balance 2605.6 ml 966.90 ml Exam HEENT exam is; supple neck, positive JVD. Midline trachea. Orally intubated. No neck masses. No thyromegaly. Pupils are small bilaterally. Chest examination; diminished breath sounds throughout. S1-S2 audible, no murmurs. Regular rhythm. Abdomen exam is; protuberant, bowel sounds are sluggish. No organomegaly felt. Extremity exam; no peripheral edema. SUPERINTENDENT MARINE examination; patient is sedated.. Results Result Diagram: 09/09/16 0426 09/09/16 0426 Results 24 hrs Laboratory Tests Test 09/08/16 11:57 09/08/16 12:30 09/08/16 12:45 09/08/16 14:50 Arterial Blood HCO3 11.4 L Arterial Blood Base Excess -11.5 L Arterial Blood Oxygen Saturation 99.2 Christofer Test ACCEPTAB Arterial Blood Gas Puncture Site Right Radial Arterial Blood Carboxyhemoglobin 0.2 Arterial Blood Date Drawn 09/08/2016 1:00:49 PM Arterial Blood Methemoglobin 0.3 Arterial Blood pCO2 (Temp correct) 19.7 L Arterial Blood pH (Temp corrected) 7.380 Arterial Blood pO2 (Temp corrected) 406.1 H Blood Gas A-a O2 Differential 287.2 H Blood Gas Actual Respiration Rate 24 Blood Gas Low PEEP Setting 5.0 Blood Gas Modality VENT - AC Blood Gas Notified Time 09/08/2016 1:10:43 PM Blood Gas Notified Whom RT Blood Gas Respiration Rate 14.0 Blood Gas Specimen Source Blood arterial Blood Gas Temperature 37.0 Blood Gas Tidal Volume 500.0 FiO2 100.0 Oxyhemoglobin Percent 98.7 Total Hemoglobin 12.3 Activated Partial Thromboplast Time 30.0 Alanine Aminotransferase (ALT/SGPT) 48 Albumin 2.0 L Albumin/Globulin Ratio 0.86 Alkaline Phosphatase 48 Anion Gap 18 H Aspartate Amino Transf (AST/SGOT) 50 H B-Type Natriuretic Peptide 92759 H Blood Urea Nitrogen 108 H Calcium Level 9.2 Carbon Dioxide Level 18 L Chloride Level 118 H Creatinine 2.67 H Differential Comment MANUAL DIFF Direct Bilirubin 0.00 Giant Platelets OCCASIONAL Globulin 2.30 Glucose Level 117 Hematocrit 33.3 L Hemoglobin 10.9 L INR International Normalized Ratio 3.40 Indirect Bilirubin 1.0 Lactic Acid Level 3.8 H 4.5 *H Lymphocytes # 2.4 Lymphocytes % 39.0 Mean Corpuscular Hemoglobin 32.3 Mean Corpuscular Hemoglobin Concent 32.7 Mean Corpuscular Volume 98.8 Mean Platelet Volume 14.8 H Monocytes # 0.2 L Monocytes % 3.0 Neutrophils # 3.6 Neutrophils % 58.0 Ovalocytes OCCASIONAL Platelet Count 80 L Potassium Level 3.8 Prothrombin Time 34.9 H Prothrombin Time Ratio 2.7 Red Blood Count 3.37 L Red Cell Distribution Width 14.7 H Sodium Level 150 H Thyroid Stimulating Hormone (TSH) 2.590 Total Bilirubin 1.0 Total Protein 4.3 L Troponin I 2.310 *H White Blood Count 6.2 Urine Bacteria FEW Urine Bilirubin 1+ H Urine Clarity SLIGHTLY CLOUDY Urine Color YELLOW Urine Glucose NEGATIVE Urine Hemoglobin 1+ H Urine Ictotest NEGATIVE Urine Ketones TRACE H Urine Leukocyte Esterase 2+ H Urine Microscopic RBC 0-2 Urine Microscopic WBC 10-25 Urine Nitrite NEGATIVE Urine Specific [place] 1.025 Urine Squamous Epithelial Cells FEW Urine Total Protein 1+ H Urine Urobilinogen 0.2 E.U./dL Urine pH 5.0 Test 09/08/16 18:20 09/09/16 00:28 09/09/16 04:26 Creatine Kinase 77 93 Creatine Kinase Index 7.4 8.9 Creatinine Kinase MB (Mass) 5.73 H 8.24 H Lactic Acid Level 5.6 *H 2.9 H Troponin I 2.380 *H 1.650 *H Anion Gap 20 H Basophils # 0.0 Basophils % 0.1 Blood Urea Nitrogen 95 H Calcium Level 6.9 L Carbon Dioxide Level 15 L Chloride Level 116 H Cholesterol Level 66 L Cholesterol/HDL Ratio 2.3 Creatinine 2.58 H Eosinophils # 0.0 Eosinophils % 0.0 Glucose Level 249 #H HDL Cholesterol 28 L Hematocrit 38.9 Hemoglobin 12.7 LDL Cholesterol, Calculated 21 Lymphocytes # 0.2 L Lymphocytes % 1.3 L Mean Corpuscular Hemoglobin 32.4 Mean Corpuscular Hemoglobin Concent 32.6 Mean Corpuscular Volume 99.2 Mean Platelet Volume 14.4 H Monocytes # 0.5 Monocytes % 2.9 Neutrophils # 17.6 H Neutrophils % 95.3 H Nucleated Red Blood Cells # 0.1 H Nucleated Red Blood Cells % 0.4 H Platelet Count 87 L Potassium Level 3.9 Red Blood Count 3.92 L Red Cell Distribution Width 15.0 H Sodium Level 147 H Triglycerides Level 83 White Blood Count 18.4 #H Medications Medications Current Medications Norepinephrine 250 ml @ 1.875 mls/ hr TITRATE IV Last administered on 09:25; Admin Dose 56.25 MLS/HR; Start 09/08/16 at 12:30 Dextrose/Sodium Chloride (D5-1/2ns) 1,000 ml @ 70 mls/hr [id number] IV Last administered on 09/09/16 00:24; Admin Dose 125 MLS/HR; Start 09/08/16 at 16:17 Flumazenil (Romazicon) 0.2 mg Q1M PRN IV BENZODIAZEPINE OVERDOSE; Start at 16:30 Naloxone HCl (Narcan) 0.4 mg Q3M PRN IV DECREASED REPIRATORY RATE; Start at 16:30 Ondansetron HCl (Zofran Inj) 4 mg Q6H PRN IV NAUSEA AND/OR VOMITING; Start 06/15 at 16:30 Nitroglycerin (Nitroglycerin (Sl Tab) 0.4 Mg) 1 tab Q5M PRN SL CHEST PAIN; Start 09/08/16 at 16:30 Acetaminophen (Tylenol Liquid) 650 mg Q6H PRN PO PAIN LEVEL 1-3 OR FEVER Last administered on 09/09/16 09:23; Admin Dose 650 MG; Start 09/08/16 at 16:30 Acetaminophen (Tylenol Tab) 650 mg Q6H PRN PO PAIN LEVEL 1-3 OR FEVER; Start at 16:30 Acetaminophen (Tylenol Supp) 650 mg Q4H PRN [place] PAIN LEVEL 1-3 OR FEVER; Start 09/08/16 at 16:30 Lorazepam (Ativan) 1 mg Q2H PRN IV ANXIETY; Start 09/08/16 at 16:30 Docusate Sodium (Colace) 100 mg Q12H PRN PO CONSTIPATION; Start 09/08/16 at 16: 30 Magnesium Hydroxide (Milk Of Mag) 30 ml DAILY PRN PO CONSTIPATION; Start at 16:30 Bisacodyl (Dulcolax) 5 mg DAILY PRN PO CONSTIPATION; Start 09/08/16 at 16:30 Pantoprazole 40 mg 40 mg DAILY@06 IV Last administered on 09/09/16 05:34; Admin Dose 40 MG; Start 09/09/16 at 06:00 Dopamine HCl/ Dextrose 250 ml @ 0 mls/hr Q0M IV Last administered on 09/08/16 18:23; Admin Dose 11.25 MLS/HR; Start 09/08/16 at 16:30 Piperacillin Sod/ Tazobactam Sod 50 ml @ 100 mls/hr Q6 IVPB Last administered on 09/09/16 05:35; Admin Dose 100 MLS/HR; Start 09/08/16 at 21:00 Vancomycin HCl 750 mg/Sodium Chloride 150 ml @ 75 mls/hr Q48H IVPB ; Start at 22:00 Midazolam HCl (Versed) 50 ml @ 1 mls/hr TITRATE IV Last administered on 09:26; Admin Dose 5 MLS/HR; Start 09/09/16 at 01:00 JENSEN LOPEZ 13, 2017 09:35
--- NOTE | 2016-09-09 09:37 | RADRPT ---
PROCEDURE: XR Chest AP portable CLINICAL INDICATION: Respiratory distress TECHNIQUE: An AP portable radiograph of the chest was submitted. COMPARISON: 09/08/2016 FINDINGS: Support Hardware: The endotracheal tube, the NG tube, and the right subclavian central venous cathet er are stable in positioning Cardiovascular: The heart remains mildly enlarged although the peripheral pulmonary vasculature appe ars unremarkable. Lung Feldman: There increasing density seen to the heart compatible with atelectasis or infiltrate. T here is again a diffuse right lung infiltrate which has improved and is now more interstitial. Pleural Spaces: No pneumothorax or pleural effusion is identified. Osseous Structures: The osseous elements are osteoporotic with degenerative spine changes again note d. Soft Tissues: The soft tissues appear unremarkable. IMPRESSION: 1. The tubes and lines are stable in positioning. 2. Persistent mild cardiomegaly without CHF. 3. Worsening atelectasis/infiltrate involving the left lower lobe with slight improvement of the ri ght lung infiltrate which is now more interstitial. Physician Iliana Date Time Electronically viewed and signed by Ban Del Cid Physician on 09/09/2016 09:37 /
[2016-09-09 10:20] LABS: AADO2 Arterial 218.3 mmHg (7.0-24.0); Arterial Base Excess -13.6 mmol/L (-3.0-3); Arterial COHb 0.3 % (0.0-3.0); Arterial HCO3 10.8 mmol/L (22.0-26.0); Arterial MetHb 0.3 % (0.0-1.5); Arterial Total Hemglobin 14.1 g/dl (12.0-18.0); MODE VENT - AC
[2016-09-09] MEDS ORDERED: NA BICARBONATE 8.4% 50 ML SYG IV STA ×2 (10:22→10:39)
[2016-09-09] MEDS: HYDROCORTISONE 100 MG INJ IV SCH ×3 (10:44→21:21)
[2016-09-09] MEDS: SODIUM BICARBONATE (IV ADD) 100 MEQ in DEXTROSE 5%-0.45% NACL 1,000 ML IV SCH (12:31)
[2016-09-09] MEDS ORDERED: NORepinephrine 8MG/250 ML (PMX 250 ML IV SCH (13:30)
--- NOTE | 2016-09-09 14:08 | CONS ---
Date/Time of Note Date/Time of Note DATE: 09/09/16 TIME: 14:03 Assessment/Plan Assessment/Plan Chief Complaint/Hosp Course IMPRESSION: 1. Hypotension/shock state, question septic versus cardiogenic, likely septic. 2. Wide complex tachycardia concerning for a nonsustained ventricular tachycardia, status post cardioversion. 3. Paroxysmal atrial fibrillation. 4. Respiratory failure, status post intubation. 5. Coagulopathy secondary to Xarelto. 6. Urinary tract infection. 7. Encephalopathy. 8. Hypernatremia. 9. Non-ST elevation myocardial infarction-slowly downtrending cardiac enzymes 10. Anemia. 11. Diabetes mellitus. 12.Bradycardia to 40 14.Acidosis Recc: -Tele -Continue levophed with weaning as tolerated -Continue Hco3 drip -Continue abx's and f/u cx data Problems: Consultation Date/Type/Reason Admit Date/Time Sep 08, 2016 at 13:10 Initial Consult Date 09/08/16 Type of Consultation: Cardiology Reason for Consultation shock/PAF Referring Provider: ALLYN BERMUDEZ Exam/Review of Systems Vital Signs Vitals Vital Signs Date Time Temp Pulse Resp B/P Pulse Ox O2 Delivery O2 Flow Rate FiO2 09/09/16 12:12 85 09/09/16 11:52 30 100 50 09/09/16 09:30 97/60 Mechanical Ventilator 09/09/16 09:00 101.0 09/08/16 11:50 15 Intake and Output 09/08/16 09/08/16 09/09/16 15:00 23:00 07:00 Intake Total 2705.6 ml 1106.90 ml Output Total 100 ml 140 ml Balance 2605.6 ml 966.90 ml Exam Review of Systems: CONSTITUTIONAL: No fevers, chills. PULMONARY: intubated CARDIOVASCULAR: No obvious chest pain/palpitations GASTROINTESTINAL: No nausea/vomiting. GENITOURINARY: No hematuria/dysuria. MUSCULOSKELETAL: No obvious myagias/arthalgias. PSYCHIATRIC: No documented depression. NEUROLOGIC: sedated Constitutional: alert Psych: no complaints Head: normocephalic ENMT: mucosa pink and moist Neck: jvd (9 cm water), supple Respiratory: diminished breath sounds (at bases/B) Cardiovascular: regular rate and rhythm Gastrointestinal: non-tender, soft Musculoskeletal: muscle tone (normal) Extremities: pitting pedal edema (BIlateral) Neurological: other (sedated) Results Result Diagram: 09/09/16 0426 09/09/16 0426 Results 24 hrs Laboratory Tests Test 09/08/16 14:50 09/08/16 18:20 09/09/16 00:28 09/09/16 04:26 Lactic Acid Level 4.5 *H 5.6 *H 2.9 H Creatine Kinase 77 93 Creatine Kinase Index 7.4 8.9 Creatinine Kinase MB (Mass) 5.73 H 8.24 H Troponin I 2.380 *H 1.650 *H Anion Gap 20 H Basophils # 0.0 Basophils % 0.1 Blood Urea Nitrogen 95 H Calcium Level 6.9 L Carbon Dioxide Level 15 L Chloride Level 116 H Cholesterol Level 66 L Cholesterol/HDL Ratio 2.3 Creatinine 2.58 H Eosinophils # 0.0 Eosinophils % 0.0 Glucose Level 249 #H HDL Cholesterol 28 L Hematocrit 38.9 Hemoglobin 12.7 LDL Cholesterol, Calculated 21 Lymphocytes # 0.2 L Lymphocytes % 1.3 L Mean Corpuscular Hemoglobin 32.4 Mean Corpuscular Hemoglobin Concent 32.6 Mean Corpuscular Volume 99.2 Mean Platelet Volume 14.4 H Monocytes # 0.5 Monocytes % 2.9 Neutrophils # 17.6 H Neutrophils % 95.3 H Nucleated Red Blood Cells # 0.1 H Nucleated Red Blood Cells % 0.4 H Platelet Count 87 L Potassium Level 3.9 Red Blood Count 3.92 L Red Cell Distribution Width 15.0 H Sodium Level 147 H Triglycerides Level 83 White Blood Count 18.4 #H Test 09/09/16 09:37 Arterial Blood HCO3 10.8 L Arterial Blood Base Excess -13.6 L Arterial Blood Oxygen Saturation 97.6 Christofer Test N/A Arterial Blood Gas Puncture Site Right Brachial Arterial Blood Carboxyhemoglobin 0.3 Arterial Blood Date Drawn 09/09/2016 10:10:32 AM Arterial Blood Methemoglobin 0.3 Arterial Blood pCO2 (Temp correct) 22.7 L Arterial Blood pH (Temp corrected) 7.295 *L Arterial Blood pO2 (Temp corrected) 112.7 H Blood Gas A-a O2 Differential 218.3 H Blood Gas Actual Respiration Rate 38 Blood Gas Critical Value Read Back Benjamin MURILLO RN Blood Gas Low PEEP Setting 5.0 Blood Gas Modality VENT - AC Blood Gas Notified Time 09/09/2016 10:20:48 AM Blood Gas Notified Whom JLD Blood Gas Respiration Rate 14.0 Blood Gas Specimen Source Blood arterial Blood Gas Temperature 37.0 Blood Gas Tidal Volume 450.0 FiO2 50.0 Oxyhemoglobin Percent 97.0 Total Hemoglobin 14.1 Medications Medications Current Medications Dextrose/Sodium Chloride (D5-1/2ns) 1,000 ml @ 70 mls/hr [id number] IV Last administered on 09/09/16 00:24; Admin Dose 125 MLS/HR; Start 09/08/16 at 16:17 Flumazenil (Romazicon) 0.2 mg Q1M PRN IV BENZODIAZEPINE OVERDOSE; Start at 16:30 Naloxone HCl (Narcan) 0.4 mg Q3M PRN IV DECREASED REPIRATORY RATE; Start at 16:30 Ondansetron HCl (Zofran Inj) 4 mg Q6H PRN IV NAUSEA AND/OR VOMITING; Start 06/15 at 16:30 Nitroglycerin (Nitroglycerin (Sl Tab) 0.4 Mg) 1 tab Q5M PRN SL CHEST PAIN; Start 09/08/16 at 16:30 Acetaminophen (Tylenol Liquid) 650 mg Q6H PRN PO PAIN LEVEL 1-3 OR FEVER Last administered on 09/09/16 09:23; Admin Dose 650 MG; Start 09/08/16 at 16:30 Acetaminophen (Tylenol Tab) 650 mg Q6H PRN PO PAIN LEVEL 1-3 OR FEVER; Start at 16:30 Acetaminophen (Tylenol Supp) 650 mg Q4H PRN [place] PAIN LEVEL 1-3 OR FEVER; Start 09/08/16 at 16:30 Lorazepam (Ativan) 1 mg Q2H PRN IV ANXIETY; Start 09/08/16 at 16:30 Docusate Sodium (Colace) 100 mg Q12H PRN PO CONSTIPATION; Start 09/08/16 at 16: 30 Magnesium Hydroxide (Milk Of Mag) 30 ml DAILY PRN PO CONSTIPATION; Start at 16:30 Bisacodyl (Dulcolax) 5 mg DAILY PRN PO CONSTIPATION; Start 09/08/16 at 16:30 Pantoprazole 40 mg 40 mg DAILY@06 IV Last administered on 09/09/16 05:34; Admin Dose 40 MG; Start 09/09/16 at 06:00 Dopamine HCl/ Dextrose 250 ml @ 0 mls/hr Q0M IV Last administered on 09/08/16 18:23; Admin Dose 11.25 MLS/HR; Start 09/08/16 at 16:30 Vancomycin HCl 750 mg/Sodium Chloride 150 ml @ 75 mls/hr Q48H IVPB ; Start at 22:00 Midazolam HCl (Versed) 50 ml @ 1 mls/hr TITRATE IV Last administered on 09:26; Admin Dose 5 MLS/HR; Start 09/09/16 at 01:00 Hydrocortisone 50 mg 50 mg Q8 IV Last administered on 09/09/16 10:44; Admin Dose 50 MG; Start 09/09/16 at 09:30 Piperacillin Sod/ Tazobactam Sod 50 ml @ 100 mls/hr Q8 IVPB ; Start 09/09/16 at 14:00 Sodium Bicarbonate 100 meq/Dextrose/ Sodium Chloride 1,100 ml @ 75 mls/hr [id number] IV Last administered on 09/09/16 12:31; Admin Dose 75 MLS/HR; Start at 12:00 Norepinephrine 250 ml @ 1.875 mls/ hr TITRATE IV ; Start 09/09/16 at 13:30; Stop 09/09/16 at 19:00 Norepinephrine/ Dextrose (Levophed/D5W) 500 ml @ 0 mls/hr TITRATE IV ; Start at 19:00 SUNITA THOMAS 13, 2017 14:08
--- NOTE | 2016-09-09 19:01 | RADRPT ---
Echocardiogram Report Patient Name: WALDEMAR ROSARIO Gender: Female Date: 1930 Study Date: 09-Sep-2016 Freezer Person: Nighat Nieves RDCS Location: 103 Ref. Physician: ALLYN BERMUDEZ Quality: Good Procedures: Transthoracic echocardiogram with complete 2D, M-Mode, and doppler examination. Indications: Coronary Artery Disease. 2D/M Mode Doppler Measurement Value Normal Ranges Measurement Value Normal Ranges LVIDd 2D 2.8 3.5 - 5.6 cm AV Peak Miguel 0.9 m/sec LVIDs 2D 1.6 2.1 - 4.1 cm AV Peak PG 3.0 mmHg FS 2D 43.4 % LVOT Peak Miguel 0.7 m/sec LVPWd 2D 1.1 0.6 - 1.1 cm LVOT Peak PG 2.0 mmHg IVSd 2D 1.0 0.6 - 1.1 cm TR Peak Miguel 2.7 m/sec IVS/LVPW 2D 0.9 TR Peak PG 30.0 mmHg AoR Diam 2D 2.7 2.0 - 3.7 cm RVSP 38.0 mmHg LA/Ao 2D 1 0 - 1 EDV 2D 22.2 cm3 ESV 2D 4.0 cm3 LA Dimen 2D 3.5 2.3 - 4.0 cm Findings Left Ventricle: Hyperdynamic left ventricular systolic function. Mild concentric left ventricular hypertrophy. Reduced left ventricular cavity size. Ejection fraction is visually estimated at 6065 %. Right Ventricle: Severe right ventricular systolic dysfunction. Severe enlargement of right ventricle. Severe right ventricular hypokinesis. Left Atrium: The left atrium is normal in size. Right Atrium: There is moderate enlargement of right atrium. Mitral Valve: Mitral valve leaflets appear mildly thickened. Mild mitral annular calcification. Mild mitral valve regurgitation. Aortic Valve: Normal appearance of the aortic valve. No significant aortic stenosis or insufficiency. Tricuspid Valve: Normal appearance of the tricuspid valve. Estimated peak PA systolic pressure 38 mmHg. There is moderate tricuspid regurgitation. Pulmonic Valve: Normal pulmonic valve appearance. Pericardium: Trivial pericardial effusion. Aorta: Normal aortic root. IVC: Inferior vena cava without respiratory collapse, however, patient on ventilator. Conclusions 1.Hyperdynamic left ventricular systolic function. Mild concentric left ventricular hypertrophy. Reduced left ventricular cavity size. Ejection fraction is visually estimated at 60-65 %. 2.Severe right ventricular systolic dysfunction. Severe enlargement of right ventricle. Severe right ventricular hypokinesis. 3.There is moderate enlargement of right atrium. 4.Mitral valve leaflets appear mildly thickened. Mild mitral annular calcification. Mild mitral valve regurgitation. 5.Normal appearance of the aortic valve. No significant aortic stenosis or insufficiency. 6.Normal appearance of the tricuspid valve. Estimated peak PA systolic pressure 38 mmHg. There is moderate tricuspid regurgitation. 7.Trivial pericardial effusion. Electronically Signed By: Lucas Marrufo 09-Sep-2016 19:00:25 -0700 Patient Name: WALDEMAR ROSARIO Study Date: 09-Sep-2016 [id number]
[2016-09-09] MEDS ORDERED: VANCOMYCIN 750 MG in SOD CHLORIDE 0.9% 150 ML IVPB SCH (22:00)
--- NOTE | 2016-09-09 22:37 | PN ---
Date/Time of Note Date/Time of Note DATE: 09/09/16 TIME: 22:35 Assessment/Plan VTE Prophylaxis VTE Prophylaxis Intervention: other Lines/Catheters IV Catheter Type (from Nrs): Central Line Central line still needed: Yes Urinary Cath still in place: Yes Reason Cath still needed: other (indicate) Assessment/Plan Chief Complaint/Hosp Course IMPRESSION: 1. Acute ventilator-dependent respiratory failure, severe sepsis. The patient has acute kidney injury, hypernatremia, free water deficit. 2. Metabolic acidosis. The patient has nstemi myocardial infarction. 3. Anemia. plan antibiotic iv bicarbonate Problems: Subjective 24 Hr Interval Summary Subjective hx not possible: other (on vent) Exam/Review of Systems Vital Signs Vitals Vital Signs Date Time Temp Pulse Resp B/P Pulse Ox O2 Delivery O2 Flow Rate FiO2 09/09/16 20:00 92 09/09/16 17:45 26 109/83 100 Mechanical Ventilator 09/09/16 17:00 98.0 09/09/16 16:59 50 09/08/16 11:50 15 Intake and Output 09/08/16 09/08/16 09/09/16 15:00 23:00 07:00 Intake Total 2705.6 ml 1106.90 ml Output Total 100 ml 140 ml Balance 2605.6 ml 966.90 ml Exam Respiratory: diminished breath sounds Cardiovascular: irregular rhythm Gastrointestinal: bowel sounds (+), soft Extremities: No edema Neurological: lethargic Results Result Diagram: 09/09/16 0426 09/09/16 0426 Results 24 hrs Laboratory Tests Test 09/09/16 00:28 09/09/16 04:26 09/09/16 09:37 09/09/16 21:45 Creatine Kinase 93 Creatine Kinase Index 8.9 Creatinine Kinase MB (Mass) 8.24 H Troponin I 1.650 *H Anion Gap 20 H Basophils # 0.0 Basophils % 0.1 Blood Urea Nitrogen 95 H Calcium Level 6.9 L Carbon Dioxide Level 15 L Chloride Level 116 H Cholesterol Level 66 L Cholesterol/HDL Ratio 2.3 Creatinine 2.58 H Eosinophils # 0.0 Eosinophils % 0.0 Glucose Level 249 #H HDL Cholesterol 28 L Hematocrit 38.9 Hemoglobin 12.7 LDL Cholesterol, Calculated 21 Lactic Acid Level 2.9 H Lymphocytes # 0.2 L Lymphocytes % 1.3 L Mean Corpuscular Hemoglobin 32.4 Mean Corpuscular Hemoglobin Concent 32.6 Mean Corpuscular Volume 99.2 Mean Platelet Volume 14.4 H Monocytes # 0.5 Monocytes % 2.9 Neutrophils # 17.6 H Neutrophils % 95.3 H Nucleated Red Blood Cells # 0.1 H Nucleated Red Blood Cells % 0.4 H Platelet Count 87 L Potassium Level 3.9 Red Blood Count 3.92 L Red Cell Distribution Width 15.0 H Sodium Level 147 H Triglycerides Level 83 White Blood Count 18.4 #H Arterial Blood HCO3 10.8 L Arterial Blood Base Excess -13.6 L Arterial Blood Oxygen Saturation 97.6 Christofer Test N/A Arterial Blood Gas Puncture Site Right Brachial Arterial Blood Carboxyhemoglobin 0.3 Arterial Blood Date Drawn 09/09/2016 10:10:32 AM Arterial Blood Methemoglobin 0.3 Arterial Blood pCO2 (Temp correct) 22.7 L Arterial Blood pH (Temp corrected) 7.295 *L Arterial Blood pO2 (Temp corrected) 112.7 H Blood Gas A-a O2 Differential 218.3 H Blood Gas Actual Respiration Rate 38 Blood Gas Critical Value Read Back E LIDIA GARCIA Blood Gas Low PEEP Setting 5.0 Blood Gas Modality VENT - AC Blood Gas Notified Time 09/09/2016 10:20:48 AM Blood Gas Notified Whom JLD Blood Gas Respiration Rate 14.0 Blood Gas Specimen Source Blood arterial Blood Gas Temperature 37.0 Blood Gas Tidal Volume 450.0 FiO2 50.0 Oxyhemoglobin Percent 97.0 Total Hemoglobin 14.1 Bedside Glucose 210 Medications Medications Current Medications Dextrose/Sodium Chloride (D5-1/2ns) 1,000 ml @ 70 mls/hr [id number] IV Last administered on 09/09/16t 00:24; Admin Dose 125 MLS/HR; Start 09/08/16 at 16:17 Flumazenil (Romazicon) 0.2 mg Q1M PRN IV BENZODIAZEPINE OVERDOSE; Start at 16:30 Naloxone HCl (Narcan) 0.4 mg Q3M PRN IV DECREASED REPIRATORY RATE; Start at 16:30 Ondansetron HCl (Zofran Inj) 4 mg Q6H PRN IV NAUSEA AND/OR VOMITING; Start 06/15 at 16:30 Nitroglycerin (Nitroglycerin (Sl Tab) 0.4 Mg) 1 tab Q5M PRN SL CHEST PAIN; Start 09/08/16 at 16:30 Acetaminophen (Tylenol Liquid) 650 mg Q6H PRN PO PAIN LEVEL 1-3 OR FEVER Last administered on 09/09/16 09:23; Admin Dose 650 MG; Start 09/08/16 at 16:30 Acetaminophen (Tylenol Tab) 650 mg Q6H PRN PO PAIN LEVEL 1-3 OR FEVER; Start at 16:30 Acetaminophen (Tylenol Supp) 650 mg Q4H PRN OR PAIN LEVEL 1-3 OR FEVER; Start 09/08/16 at 16:30 Lorazepam (Ativan) 1 mg Q2H PRN IV ANXIETY; Start 09/08/16 at 16:30 Docusate Sodium (Colace) 100 mg Q12H PRN PO CONSTIPATION; Start 09/08/16 at 16: 30 Magnesium Hydroxide (Milk Of Mag) 30 ml DAILY PRN PO CONSTIPATION; Start at 16:30 Bisacodyl (Dulcolax) 5 mg DAILY PRN PO CONSTIPATION; Start 09/08/16 at 16:30 Pantoprazole 40 mg 40 mg DAILY@06 IV Last administered on 09/09/16 05:34; Admin Dose 40 MG; Start 09/09/16 at 06:00 Dopamine HCl/ Dextrose 250 ml @ 0 mls/hr Q0M IV Last administered on 09/08/16 18:23; Admin Dose 11.25 MLS/HR; Start 09/08/16 at 16:30 Vancomycin HCl 750 mg/Sodium Chloride 150 ml @ 75 mls/hr Q48H IVPB Last administered on 09/09/16 21:21; Admin Dose 75 MLS/HR; Start 09/09/16 at 22:00 Midazolam HCl (Versed) 50 ml @ 1 mls/hr TITRATE IV Last administered on 21:21; Admin Dose 5 MLS/HR; Start 09/09/16 at 01:00 Hydrocortisone 50 mg 50 mg Q8 IV Last administered on 09/09/16 21:21; Admin Dose 50 MG; Start 09/09/16 at 09:30 Piperacillin Sod/ Tazobactam Sod 50 ml @ 100 mls/hr Q8 IVPB Last administered on 09/09/16 21:21; Admin Dose 100 MLS/HR; Start 09/09/16 at 14:00 Sodium Bicarbonate 100 meq/Dextrose/ Sodium Chloride 1,100 ml @ 75 mls/hr [id number] IV Last administered on 09/09/16 12:31; Admin Dose 75 MLS/HR; Start at 12:00 Norepinephrine/ Dextrose (Levophed/D5W) 500 ml @ 0 mls/hr TITRATE IV Last administered on 09/09/16 17:20; Admin Dose 0 MLS/HR; Start 09/09/16 at 16:00 ALLYN BERMUDEZ MD Sep 09, 2016 22:37
[2016-09-10] VITALS (105 sets, daily range): BP systolic 91–123; BP diastolic 48–100; PULSE 71–102; RESP 0–30
[2016-09-10] MEDS: IPRATROPIUM (HFA) 12.9 GM INHALER INH SCH ×6 (01:13→20:48)
[2016-09-10] MEDS: ALBUTEROL HFA 8 GM INHALER INH SCH ×6 (01:13→20:48)
[2016-09-10] MEDS: SODIUM BICARBONATE (IV ADD) 100 MEQ in DEXTROSE 5%-0.45% NACL 1,000 ML IV SCH ×2 (02:51→17:50)
[2016-09-10 04:51] LABS: ADD SCAN DIFF NO
[2016-09-10 05:06] LABS: ABNORMAL IP MESSAGE 1; BASOPHILS % 0.1 % (0.0-2.0); HEMATOCRIT 35.6 % (37.0-47.0); HEMOGLOBIN 11.6 g/dl (12.0-16.0); LYMPHOCYTES # 0.3 10^3/ul (0.8-2.9); MEAN CORPUSCULAR HEMOGLOBIN 31.9 pg (29.0-33.0); MEAN CORPUSCULAR HGB CONC 32.6 g/dl (32.0-37.0); MEAN CORPUSCULAR VOLUME 97.8 fl (82.0-101.0); MONOCYTE # 0.6 10^3/ul (0.3-0.9); MONOCYTES % 3.9 % (0.0-11.0); NEUTROPHIL # 14.3 10^3/ul (1.6-7.5); NUCLEATED RED BLOOD CELLS # 0.1 10^3/ul (0.0-0.0); NUCLEATED RED BLOOD CELLS% 0.4 /100WBC (0.0-0.0); PLATELET COUNT 48 10^3/UL (140-415); RED BLOOD COUNT 3.64 10^6/ul (4.20-5.40); RED CELL DISTRIBUTION WIDTH 15.1 % (11.5-14.5); WHITE BLOOD COUNT 15.3 10^3/ul (4.8-10.8)
[2016-09-10 05:23] LABS: NEUTROPHILS % 93.5 % (39.0-77.0)
[2016-09-10 05:31] LABS: ALBUMIN 2.2 g/dl (3.3-4.9)
[2016-09-10 05:32] LABS: POTASSIUM 3.3 mmol/L (3.5-5.1)
[2016-09-10 05:34] LABS: ALBUMIN/GLOBULIN RATIO 0.88; BILIRUBIN,INDIRECT 1.5 mg/dl (0-1.1); BILIRUBIN,TOTAL 1.5 mg/dl (0.2-1.3); CREATININE 2.52 mg/dl (0.44-1.00); TOTAL PROTEIN 4.7 g/dl (6.1-8.1)
[2016-09-10 05:35] LABS: CALCIUM 6.9 mg/dl (8.4-10.2)
[2016-09-10] MEDS: PANTOPRAZOLE 40 MG INJ IV SCH (05:49)
[2016-09-10] MEDS: PIPER-TAZO 2.25 GM (PMX) 50 ML IVPB SCH ×3 (05:49→21:05)
[2016-09-10] MEDS: HYDROCORTISONE 100 MG INJ IV SCH ×3 (05:49→21:05)
--- NOTE | 2016-09-10 07:28 | CONS ---
Date/Time of Note Date/Time of Note DATE: 09/10/16 TIME: 07:24 Assessment/Plan Assessment/Plan Chief Complaint/Hosp Course Consultations requested for management of respiratory failure. Next History presenting; patient is a 86-year-old white lady who was brought into the hospital after the patient apparently sustained a cardiac arrest altered of the hospital the patient also required CPR lasting about 3 minutes with revival of vital signs. By the time I saw the patient and ER the patient is orally intubated is severely hypotensive with maxed out doses of Levophed. Patient also has been adequately fluid resuscitated. She was obtained from medical records. Next Past medical history; Medications; were reviewed. Allergies; are none. Next Social history; not available. Family history, occupational history is not available. Review of systems; currently under able to be obtained. Next General exam; elderly lady orally intubated, unresponsive. 1. History of renal insufficiency. 2. History of COPD, patient on long-term steroid use. 3. History of abdominal surgery. Problems: Additional Assessment/Plan Ventilator settings; AC of 14, tidal volume 450, PEEP of 5, 50% FiO2. Patient currently on Levophed at 16 mics per minute. Next Assessment recommendations; 1. Patient admitted for cardiac arrest/respiratory failure. 2. Bilateral pneumonia. 3. COPD with long-term steroid use. 4. Prior history of abdominal surgery as evidenced by a laparotomy scar. 5. Hypotension requiring high-dose Levophed. 6. Thrombocytopenia. With interval worsening. No overt bleeding seen. Continue current treatment. Stop sedation to assess mental status. Patient currently on 2 mg Versed per hour. Obtain a follow-up chest x-ray. Prognosis depends upon adequate mental status recovery. Start tube feeding. Consultation Date/Type/Reason Admit Date/Time Sep 08, 2016 at 13:10 Initial Consult Date 09/08/16 Type of Consultation: Pulmonary/critical care Referring Provider: ALLYN BERMUDEZ MD 24 HR Interval Summary Free Text/Dictation Patient's condition remains critical. Still requiring full ventilator support. Patient also requiring high-dose Levophed for blood pressure maintenance. Next General exam; elderly lady, orally intubated, sedated. Exam/Review of Systems Vital Signs Vitals Vital Signs Date Time Temp Pulse Resp B/P Pulse Ox O2 Delivery O2 Flow Rate FiO2 09/10/16 06:15 90 24 117/77 100 09/10/16 06:00 Mechanical Ventilator 09/10/16 05:24 50 09/10/16 04:00 98.0 09/08/16 11:50 15 Intake and Output 09/09/16 09/09/16 09/10/16 15:00 23:00 07:00 Intake Total 1072.50 ml 1411.50 ml 883.50 ml Output Total 30 ml 310 ml 520 ml Balance 1042.50 ml 1101.50 ml 363.50 ml Exam H EENT examination; supple neck, positive JVD. No lymphadenopathy. Orally intubated. Pupils are small bilaterally. No neck masses. No thyromegaly. Chest examination : Diminished but clear breath sounds bilaterally. S1-S2 audible, no murmurs. Regular rhythm. Abdomen examination; soft, nondistended. No organomegaly. Bowel sounds audible. Extremity examination bilateral trace edema. [employer] examination; patient is sedated. Results Result Diagram: 09/10/16 0417 09/10/16 0417 Results 24 hrs Laboratory Tests Test 09/09/16 09:37 09/09/16 21:45 09/10/16 04:17 Arterial Blood HCO3 10.8 L Arterial Blood Base Excess -13.6 L Arterial Blood Oxygen Saturation 97.6 Christofer Test N/A Arterial Blood Gas Puncture Site Right Brachial Arterial Blood Carboxyhemoglobin 0.3 Arterial Blood Date Drawn 09/09/2016 10:10:32 AM Arterial Blood Methemoglobin 0.3 Arterial Blood pCO2 (Temp correct) 22.7 L Arterial Blood pH (Temp corrected) 7.295 *L Arterial Blood pO2 (Temp corrected) 112.7 H Blood Gas A-a O2 Differential 218.3 H Blood Gas Actual Respiration Rate 38 Blood Gas Critical Value Read Back Benjamin MURILLO RN Blood Gas Low PEEP Setting 5.0 Blood Gas Modality VENT - AC Blood Gas Notified Time 09/09/2016 10:20:48 AM Blood Gas Notified Whom JLD Blood Gas Respiration Rate 14.0 Blood Gas Specimen Source Blood arterial Blood Gas Temperature 37.0 Blood Gas Tidal Volume 450.0 FiO2 50.0 Oxyhemoglobin Percent 97.0 Total Hemoglobin 14.1 Bedside Glucose 210 Alanine Aminotransferase (ALT/SGPT) 56 Albumin 2.2 L Albumin/Globulin Ratio 0.88 Alkaline Phosphatase 49 Anion Gap 18 H Aspartate Amino Transf (AST/SGOT) 35 Basophils # 0.0 Basophils % 0.1 Blood Urea Nitrogen 92 H Calcium Level 6.9 L Carbon Dioxide Level 20 L Chloride Level 114 H Creatinine 2.52 H Direct Bilirubin 0.00 Eosinophils # 0.0 Eosinophils % 0.0 Globulin 2.50 Glucose Level 220 Hematocrit 35.6 L Hemoglobin 11.6 L Indirect Bilirubin 1.5 H Lymphocytes # 0.3 L Lymphocytes % 2.0 L Mean Corpuscular Hemoglobin 31.9 Mean Corpuscular Hemoglobin Concent 32.6 Mean Corpuscular Volume 97.8 Mean Platelet Volume 14.0 H Monocytes # 0.6 Monocytes % 3.9 Neutrophils # 14.3 H Neutrophils % 93.5 H Nucleated Red Blood Cells # 0.1 H Nucleated Red Blood Cells % 0.4 H Platelet Count 48 #L Potassium Level 3.3 L Red Blood Count 3.64 L Red Cell Distribution Width 15.1 H Sodium Level 149 H Total Bilirubin 1.5 H Total Protein 4.7 L White Blood Count 15.3 H Medications Medications Current Medications Dextrose/Sodium Chloride (D5-1/2ns) 1,000 ml @ 70 mls/hr [id number] IV Last administered on 09/09/16 00:24; Admin Dose 125 MLS/HR; Start 09/08/16 at 16:17 Flumazenil (Romazicon) 0.2 mg Q1M PRN IV BENZODIAZEPINE OVERDOSE; Start at 16:30 Naloxone HCl (Narcan) 0.4 mg Q3M PRN IV DECREASED REPIRATORY RATE; Start at 16:30 Ondansetron HCl (Zofran Inj) 4 mg Q6H PRN IV NAUSEA AND/OR VOMITING; Start 06/15 at 16:30 Nitroglycerin (Nitroglycerin (Sl Tab) 0.4 Mg) 1 tab Q5M PRN SL CHEST PAIN; Start 09/08/16 at 16:30 Acetaminophen (Tylenol Liquid) 650 mg Q6H PRN PO PAIN LEVEL 1-3 OR FEVER Last administered on 09/09/16 09:23; Admin Dose 650 MG; Start 09/08/16 at 16:30 Acetaminophen (Tylenol Tab) 650 mg Q6H PRN PO PAIN LEVEL 1-3 OR FEVER; Start at 16:30 Acetaminophen (Tylenol Supp) 650 mg Q4H PRN NC PAIN LEVEL 1-3 OR FEVER; Start 09/08/16 at 16:30 Lorazepam (Ativan) 1 mg Q2H PRN IV ANXIETY; Start 09/08/16 at 16:30 Docusate Sodium (Colace) 100 mg Q12H PRN PO CONSTIPATION; Start 09/08/16 at 16: 30 Magnesium Hydroxide (Milk Of Mag) 30 ml DAILY PRN PO CONSTIPATION; Start at 16:30 Bisacodyl (Dulcolax) 5 mg DAILY PRN PO CONSTIPATION; Start 09/08/16 at 16:30 Pantoprazole 40 mg 40 mg DAILY@06 IV Last administered on 09/10/16 05:49; Admin Dose 40 MG; Start 09/09/16 at 06:00 Dopamine HCl/ Dextrose 250 ml @ 0 mls/hr Q0M IV Last administered on 09/08/16 18:23; Admin Dose 11.25 MLS/HR; Start 09/08/16 at 16:30 Vancomycin HCl 750 mg/Sodium Chloride 150 ml @ 75 mls/hr Q48H IVPB Last administered on 09/09/16 21:21; Admin Dose 75 MLS/HR; Start 09/09/16 at 22:00 Midazolam HCl (Versed) 50 ml @ 1 mls/hr TITRATE IV Last administered on 21:21; Admin Dose 5 MLS/HR; Start 09/09/16 at 01:00 Hydrocortisone 50 mg 50 mg Q8 IV Last administered on 09/10/16 05:49; Admin Dose 50 MG; Start 09/09/16 at 09:30 Piperacillin Sod/ Tazobactam Sod 50 ml @ 100 mls/hr Q8 IVPB Last administered on 09/10/16 05:49; Admin Dose 100 MLS/HR; Start 09/09/16 at 14:00 Sodium Bicarbonate 100 meq/Dextrose/ Sodium Chloride 1,100 ml @ 75 mls/hr [id number] IV Last administered on 09/10/16 02:51; Admin Dose 75 MLS/HR; Start at 12:00 Norepinephrine/ Dextrose (Levophed/D5W) 500 ml @ 0 mls/hr TITRATE IV Last administered on 09/10/16 02:14; Admin Dose 45 MLS/HR; Start 09/09/16 at 16:00 JENSEN LOPEZ Sep 10, 2016 07:28
--- NOTE | 2016-09-10 09:02 | CONS ---
Date/Time of Note Date/Time of Note DATE: 09/10/16 TIME: 08:57 Assessment/Plan Assessment/Plan Additional Assessment/Plan `1. Hypotension/shock state, question septic versus cardiogenic, likely septic - still on levo gtt, stableurineoutput 30 cc/hr - con't anti-bx and supportive care. 2. Wide complex tachycardia concerning for a nonsustained ventricular tachycardia, status post cardioversion- back in a. fib now. 3. Paroxysmal atrial fibrillation- now in a . fib - con't rate control strategy. 4. Respiratory failure, status post intubation - pulm team follows 5. Coagulopathy secondary to Xarelto. 6. Urinary tract infection - on anti-bx now. 7. Encephalopathy. 8. Hypernatremia. 9. Non-ST elevation myocardial infarction-slowly downtrending cardiac enzymes - no intervention planned now, will monitor while on levo gtt. 10. Anemia- no active bleeding 11. Diabetes mellitus. 12.Bradycardia to 40 - no indication for pacer now 14.Acidosis - retteron vent Consultation Date/Type/Reason Admit Date/Time Sep 08, 2016 at 13:10 Initial Consult Date 09/08/16 Type of Consultation: Pulmonary/critical care Referring Provider: ALLYN BERMUDEZ MD 24 HR Interval Summary Free Text/Dictation NOW converted to a. fib - reasonable rate control - will monitor as still on levo gtt. ROS: No fever, no chills, no nausea, no vomiting, no diarrhea/constipation No recent weight changes No chest pain, no PND, no orthopnea No dizziness, blurred vision No thirst, no heat or cold intolerance (per nurse) Exam/Review of Systems Vital Signs Vitals Vital Signs Date Time Temp Pulse Resp B/P Pulse Ox O2 Delivery O2 Flow Rate FiO2 09/10/16 08:00 90 09/10/16 06:15 24 117/77 100 09/10/16 06:00 Mechanical Ventilator 09/10/16 05:24 50 09/10/16 04:00 98.0 09/08/16 11:50 15 Intake and Output 09/09/16 09/09/16 09/10/16 15:00 23:00 07:00 Intake Total 1072.50 ml 1411.50 ml 883.50 ml Output Total 30 ml 310 ml 520 ml Balance 1042.50 ml 1101.50 ml 363.50 ml Exam General: WN/WD/NAD, AOx 0 HEENT: Unicetric/atraumatic/EOMI (does not follow commands) NECK: JVD elevated, no thyromegaly, intubated Lymph: no lymphadenopathy HEART: IRregular with no S3, II/ systolic murmur at apex LUNGS: Coarse sounds ABD: soft, NT, ND, +BS : Intact Neuro: non focal SKIN: chronic changes EXT: trace edema Results Result Diagram: 09/10/16 0417 09/10/16 0417 Results 24 hrs Laboratory Tests Test 09/09/16 09:37 09/09/16 21:45 09/10/16 04:17 Arterial Blood HCO3 10.8 L Arterial Blood Base Excess -13.6 L Arterial Blood Oxygen Saturation 97.6 Christofer Test N/A Arterial Blood Gas Puncture Site Right Brachial Arterial Blood Carboxyhemoglobin 0.3 Arterial Blood Date Drawn 09/09/2016 10:10:32 AM Arterial Blood Methemoglobin 0.3 Arterial Blood pCO2 (Temp correct) 22.7 L Arterial Blood pH (Temp corrected) 7.295 *L Arterial Blood pO2 (Temp corrected) 112.7 H Blood Gas A-a O2 Differential 218.3 H Blood Gas Actual Respiration Rate 38 Blood Gas Critical Value Read Back E LIDIA GARCIA Blood Gas Low PEEP Setting 5.0 Blood Gas Modality VENT - AC Blood Gas Notified Time 09/09/2016 10:20:48 AM Blood Gas Notified Whom JLD Blood Gas Respiration Rate 14.0 Blood Gas Specimen Source Blood arterial Blood Gas Temperature 37.0 Blood Gas Tidal Volume 450.0 FiO2 50.0 Oxyhemoglobin Percent 97.0 Total Hemoglobin 14.1 Bedside Glucose 210 Alanine Aminotransferase (ALT/SGPT) 56 Albumin 2.2 L Albumin/Globulin Ratio 0.88 Alkaline Phosphatase 49 Anion Gap 18 H Aspartate Amino Transf (AST/SGOT) 35 Basophils # 0.0 Basophils % 0.1 Blood Urea Nitrogen 92 H Calcium Level 6.9 L Carbon Dioxide Level 20 L Chloride Level 114 H Creatinine 2.52 H Direct Bilirubin 0.00 Eosinophils # 0.0 Eosinophils % 0.0 Globulin 2.50 Glucose Level 220 Hematocrit 35.6 L Hemoglobin 11.6 L Indirect Bilirubin 1.5 H Lymphocytes # 0.3 L Lymphocytes % 2.0 L Mean Corpuscular Hemoglobin 31.9 Mean Corpuscular Hemoglobin Concent 32.6 Mean Corpuscular Volume 97.8 Mean Platelet Volume 14.0 H Monocytes # 0.6 Monocytes % 3.9 Neutrophils # 14.3 H Neutrophils % 93.5 H Nucleated Red Blood Cells # 0.1 H Nucleated Red Blood Cells % 0.4 H Platelet Count 48 #L Potassium Level 3.3 L Red Blood Count 3.64 L Red Cell Distribution Width 15.1 H Sodium Level 149 H Total Bilirubin 1.5 H Total Protein 4.7 L White Blood Count 15.3 H Medications Medications Current Medications Dextrose/Sodium Chloride (D5-1/2ns) 1,000 ml @ 70 mls/hr [id number] IV Last administered on 09/09/16 00:24; Admin Dose 125 MLS/HR; Start 09/08/16 at 16:17 Flumazenil (Romazicon) 0.2 mg Q1M PRN IV BENZODIAZEPINE OVERDOSE; Start at 16:30 Naloxone HCl (Narcan) 0.4 mg Q3M PRN IV DECREASED REPIRATORY RATE; Start at 16:30 Ondansetron HCl (Zofran Inj) 4 mg Q6H PRN IV NAUSEA AND/OR VOMITING; Start 06/15 at 16:30 Nitroglycerin (Nitroglycerin (Sl Tab) 0.4 Mg) 1 tab Q5M PRN SL CHEST PAIN; Start 09/08/16 at 16:30 Acetaminophen (Tylenol Liquid) 650 mg Q6H PRN PO PAIN LEVEL 1-3 OR FEVER Last administered on 09/09/16 09:23; Admin Dose 650 MG; Start 09/08/16 at 16:30 Acetaminophen (Tylenol Tab) 650 mg Q6H PRN PO PAIN LEVEL 1-3 OR FEVER; Start at 16:30 Acetaminophen (Tylenol Supp) 650 mg Q4H PRN NE PAIN LEVEL 1-3 OR FEVER; Start 09/08/16 at 16:30 Lorazepam (Ativan) 1 mg Q2H PRN IV ANXIETY; Start 09/08/16 at 16:30 Docusate Sodium (Colace) 100 mg Q12H PRN PO CONSTIPATION; Start 09/08/16 at 16: 30 Magnesium Hydroxide (Milk Of Mag) 30 ml DAILY PRN PO CONSTIPATION; Start at 16:30 Bisacodyl (Dulcolax) 5 mg DAILY PRN PO CONSTIPATION; Start 09/08/16 at 16:30 Pantoprazole 40 mg 40 mg DAILY@06 IV Last administered on 09/10/16 05:49; Admin Dose 40 MG; Start 09/09/16 at 06:00 Dopamine HCl/ Dextrose 250 ml @ 0 mls/hr Q0M IV Last administered on 09/08/16 18:23; Admin Dose 11.25 MLS/HR; Start 09/08/16 at 16:30 Vancomycin HCl 750 mg/Sodium Chloride 150 ml @ 75 mls/hr Q48H IVPB Last administered on 09/09/16 21:21; Admin Dose 75 MLS/HR; Start 09/09/16 at 22:00 Midazolam HCl (Versed) 50 ml @ 1 mls/hr TITRATE IV Last administered on 21:21; Admin Dose 5 MLS/HR; Start 09/09/16 at 01:00 Hydrocortisone 50 mg 50 mg Q8 IV Last administered on 09/10/16 05:49; Admin Dose 50 MG; Start 09/09/16 at 09:30 Piperacillin Sod/ Tazobactam Sod 50 ml @ 100 mls/hr Q8 IVPB Last administered on 09/10/16 05:49; Admin Dose 100 MLS/HR; Start 09/09/16 at 14:00 Sodium Bicarbonate 100 meq/Dextrose/ Sodium Chloride 1,100 ml @ 75 mls/hr [id number] IV Last administered on 09/10/16 02:51; Admin Dose 75 MLS/HR; Start at 12:00 Norepinephrine/ Dextrose (Levophed/D5W) 500 ml @ 0 mls/hr TITRATE IV Last administered on 09/10/16 02:14; Admin Dose 45 MLS/HR; Start 09/09/16 at 16:00 SHAHZAD TILLEY MD Sep 10, 2016 09:01
[2016-09-10] MEDS ORDERED: HEPARIN 1000 UNITS/ML 10 ML INJ IV PRN (09:30)
--- NOTE | 2016-09-10 10:37 | RADRPT ---
PROCEDURE: XR Chest. CLINICAL INDICATION: Pneumonia TECHNIQUE: An AP view of the chest was obtained. COMPARISON: Chest x-ray dated 09/09/2016 FINDINGS: The endotracheal tube tip is approximately 2.6 cm above the raf. The tip of the enteric tube ex tends below the left diaphragm. As right subclavian central venous catheter with tip near the cavoat rial junction. There is prominence of the central pulmonary vascular markings with small bilateral pleural effusion s. No focal airspace opacification or pneumothorax is seen. The cardiomediastinal silhouette is m oderately enlarged. Calcifications are seen within the aortic arch. The osseous structures demonstr ate senescent changes. IMPRESSION: 1. Findings suggestive of pulmonary vascular congestion/interstitial edema with small bilateral pl eural effusions, mildly increased when compared to the prior examination. 2. Moderate cardiomegaly and aortic atherosclerosis. 3. Tubes and lines, as described above. RPTAT: HH .Kamille Bob MD, MD Date Time Electronically viewed and signed by .Kamille Bob MD, on 09/10/2016 10:36 .G/
[2016-09-10] MEDS ORDERED: HEPARIN 25000 UNITS/250 ML 250 ML IV SCH (11:00)
[2016-09-10] MEDS: DEXTROSE 5%-0.45% NACL 1,000 ML IV SCH (13:00)
[2016-09-10] MEDS ORDERED: POTASSIUM CHLORIDE 250 ML IVPB ONE (14:30)
[2016-09-10 14:36] LABS: ADD SCAN DIFF NO
[2016-09-10 14:40] LABS: ABNORMAL IP MESSAGE 1; HEMATOCRIT 34.6 % (37.0-47.0); HEMOGLOBIN 11.6 g/dl (12.0-16.0); MEAN CORPUSCULAR HEMOGLOBIN 32.5 pg (29.0-33.0); MEAN CORPUSCULAR HGB CONC 33.5 g/dl (32.0-37.0); MEAN CORPUSCULAR VOLUME 96.9 fl (82.0-101.0); MEAN PLATELET VOLUME 14.9 fl (7.4-10.4); PLATELET COUNT 49 10^3/UL (140-415); RED BLOOD COUNT 3.57 10^6/ul (4.20-5.40)
[2016-09-10 14:48] LABS: INR 1.56; PROTIME 18.8 Sec (12.2-14.2); PT RATIO 1.5
[2016-09-10 15:44] LABS: PARTIAL THROMBOPLASTIN TIME 161.2 Sec (25.0-35.0)
[2016-09-10 15:56] LABS: ANISOCYTOSIS 1+; MONOCYTE # 0.5 10^3/ul (0.3-0.9); NEUTROPHIL # 14.2 10^3/ul (1.6-7.5)
[2016-09-10 15:57] LABS: BURR CELLS MODERATE
[2016-09-10 15:58] LABS: ACANTHOCYTES FEW; OVALOCYTES FEW; POIKILOCYTOSIS 1+; SPHEROCYTES FEW
[2016-09-10 15:59] LABS: PLATELET ESTIMATE PLT APPEAR DECREASED
--- NOTE | 2016-09-10 21:08 | PN ---
Date/Time of Note Date/Time of Note DATE: 09/10/16 TIME: 21:07 Assessment/Plan VTE Prophylaxis VTE Prophylaxis Intervention: other Lines/Catheters IV Catheter Type (from Nrs): Central Line Central line still needed: Yes Urinary Cath still in place: Yes Reason Cath still needed: other (indicate) Assessment/Plan Chief Complaint/Hosp Course IMPRESSION: 1. Acute ventilator-dependent respiratory failure, severe sepsis. The patient has acute kidney injury, hypernatremia, free water deficit. 2. Metabolic acidosis. The patient has nstemi myocardial infarction. 3. Anemia. plan antibiotic iv bicarbonate per cardio Problems: Subjective 24 Hr Interval Summary Subjective hx not possible: other (on vent) Exam/Review of Systems Vital Signs Vitals Vital Signs Date Time Temp Pulse Resp B/P Pulse Ox O2 Delivery O2 Flow Rate FiO2 09/10/16 18:45 75 26 105/80 100 09/10/16 18:00 Mechanical Ventilator 09/10/16 16:54 40 09/10/16 16:00 97.8 09/08/16 11:50 15 Intake and Output 09/09/16 09/09/16 09/10/16 15:00 23:00 07:00 Intake Total 1072.50 ml 1411.50 ml 994.20 ml Output Total 30 ml 310 ml 520 ml Balance 1042.50 ml 1101.50 ml 474.20 ml Exam Neck: supple Respiratory: diminished breath sounds Cardiovascular: regular rate and rhythm Gastrointestinal: soft Musculoskeletal: nl extremities to inspection Extremities: normal pulses Results Result Diagram: 09/10/16 1415 09/10/16 0417 Results 24 hrs Laboratory Tests Test 09/09/16 21:45 09/10/16 04:17 09/10/16 14:15 Bedside Glucose 210 Alanine Aminotransferase (ALT/SGPT) 56 Albumin 2.2 L Albumin/Globulin Ratio 0.88 Alkaline Phosphatase 49 Anion Gap 18 H Aspartate Amino Transf (AST/SGOT) 35 Basophils # 0.0 Basophils % 0.1 Blood Urea Nitrogen 92 H Calcium Level 6.9 L Carbon Dioxide Level 20 L Chloride Level 114 H Creatinine 2.52 H Direct Bilirubin 0.00 Eosinophils # 0.0 Eosinophils % 0.0 Globulin 2.50 Glucose Level 220 Hematocrit 35.6 L 34.6 L Hemoglobin 11.6 L 11.6 L Indirect Bilirubin 1.5 H Lymphocytes # 0.3 L Lymphocytes % 2.0 L Mean Corpuscular Hemoglobin 31.9 32.5 Mean Corpuscular Hemoglobin Concent 32.6 33.5 Mean Corpuscular Volume 97.8 96.9 Mean Platelet Volume 14.0 H 14.9 H Monocytes # 0.6 0.5 Monocytes % 3.9 3.0 Neutrophils # 14.3 H 14.2 H Neutrophils % 93.5 H 89.0 H Nucleated Red Blood Cells # 0.1 H Nucleated Red Blood Cells % 0.4 H Platelet Count 48 #L 49 L Potassium Level 3.3 L Red Blood Count 3.64 L 3.57 L Red Cell Distribution Width 15.1 H 15.0 H Sodium Level 149 H Total Bilirubin 1.5 H Total Protein 4.7 L White Blood Count 15.3 H 16.0 H Acanthocytes FEW Activated Partial Thromboplast Time 161.2 *H Anisocytosis 1+ Band Neutrophils % 8.0 H INR International Normalized Ratio 1.56 Ovalocytes FEW Platelet Estimate PLT APPEAR DECREASED Poikilocytosis 1+ Prothrombin Time 18.8 #H Prothrombin Time Ratio 1.5 Spherocytes FEW Medications Medications Current Medications Dextrose/Sodium Chloride (D5-1/2ns) 1,000 ml @ 70 mls/hr [id number] IV Last administered on 09/09/16 00:24; Admin Dose 125 MLS/HR; Start 09/08/16 at 16:17 Flumazenil (Romazicon) 0.2 mg Q1M PRN IV BENZODIAZEPINE OVERDOSE; Start at 16:30 Naloxone HCl (Narcan) 0.4 mg Q3M PRN IV DECREASED REPIRATORY RATE; Start at 16:30 Ondansetron HCl (Zofran Inj) 4 mg Q6H PRN IV NAUSEA AND/OR VOMITING; Start 06/15 at 16:30 Nitroglycerin (Nitroglycerin (Sl Tab) 0.4 Mg) 1 tab Q5M PRN SL CHEST PAIN; Start 09/08/16 at 16:30 Acetaminophen (Tylenol Liquid) 650 mg Q6H PRN PO PAIN LEVEL 1-3 OR FEVER Last administered on 09/09/16 09:23; Admin Dose 650 MG; Start 09/08/16 at 16:30 Acetaminophen (Tylenol Tab) 650 mg Q6H PRN PO PAIN LEVEL 1-3 OR FEVER; Start at 16:30 Acetaminophen (Tylenol Supp) 650 mg Q4H PRN [place] PAIN LEVEL 1-3 OR FEVER; Start 09/08/16 at 16:30 Lorazepam (Ativan) 1 mg Q2H PRN IV ANXIETY; Start 09/08/16 at 16:30 Docusate Sodium (Colace) 100 mg Q12H PRN PO CONSTIPATION; Start 09/08/16 at 16: 30 Magnesium Hydroxide (Milk Of Mag) 30 ml DAILY PRN PO CONSTIPATION; Start at 16:30 Bisacodyl (Dulcolax) 5 mg DAILY PRN PO CONSTIPATION; Start 09/08/16 at 16:30 Pantoprazole 40 mg 40 mg DAILY@06 IV Last administered on 09/10/16 05:49; Admin Dose 40 MG; Start 09/09/16 at 06:00 Dopamine HCl/ Dextrose 250 ml @ 0 mls/hr Q0M IV Last administered on 09/08/16 18:23; Admin Dose 11.25 MLS/HR; Start 09/08/16 at 16:30 Vancomycin HCl 750 mg/Sodium Chloride 150 ml @ 75 mls/hr Q48H IVPB Last administered on 09/09/16 21:21; Admin Dose 75 MLS/HR; Start 09/09/16 at 22:00 Midazolam HCl (Versed) 50 ml @ 1 mls/hr TITRATE IV Last administered on 21:21; Admin Dose 5 MLS/HR; Start 09/09/16 at 01:00 Hydrocortisone 50 mg 50 mg Q8 IV Last administered on 09/10/16 14:38; Admin Dose 50 MG; Start 09/09/16 at 09:30 Piperacillin Sod/ Tazobactam Sod 50 ml @ 100 mls/hr Q8 IVPB Last administered on 09/10/16 14:45; Admin Dose 100 MLS/HR; Start 09/09/16 at 14:00 Sodium Bicarbonate 100 meq/Dextrose/ Sodium Chloride 1,100 ml @ 75 mls/hr [id number] IV Last administered on 09/10/16 17:50; Admin Dose 75 MLS/HR; Start at 12:00 Norepinephrine/ Dextrose (Levophed/D5W) 500 ml @ 0 mls/hr TITRATE IV Last administered on 09/10/16t 02:14; Admin Dose 45 MLS/HR; Start 09/09/16 at 16:00 ALLYN BERMUDEZ MD Sep 10, 2016 21:08
[2016-09-11] VITALS (104 sets, daily range): BP systolic 98–123; BP diastolic 57–91; PULSE 60–88; RESP 0–30
[2016-09-11] MEDS: IPRATROPIUM (HFA) 12.9 GM INHALER INH SCH ×6 (01:22→21:49)
[2016-09-11] MEDS: ALBUTEROL HFA 8 GM INHALER INH SCH ×6 (01:22→21:49)
[2016-09-11] MEDS: DEXTROSE 5%-0.45% NACL 1,000 ML IV SCH (03:02)
[2016-09-11] MEDS: HYDROCORTISONE 100 MG INJ IV SCH ×3 (05:25→21:28)
[2016-09-11] MEDS: PIPER-TAZO 2.25 GM (PMX) 50 ML IVPB SCH ×3 (05:25→21:28)
[2016-09-11] MEDS: PANTOPRAZOLE 40 MG INJ IV SCH (05:25)
[2016-09-11 05:26] LABS: ADD SCAN DIFF NO
[2016-09-11 05:36] LABS: ABNORMAL IP MESSAGE 1; BASOPHILS % 0.1 % (0.0-2.0); HEMATOCRIT 34.1 % (37.0-47.0); HEMOGLOBIN 11.1 g/dl (12.0-16.0); LYMPHOCYTES # 0.3 10^3/ul (0.8-2.9); LYMPHOCYTES % 2.6 % (15.0-51.0); MEAN CORPUSCULAR HEMOGLOBIN 31.7 pg (29.0-33.0); MEAN CORPUSCULAR HGB CONC 32.6 g/dl (32.0-37.0); MEAN CORPUSCULAR VOLUME 97.4 fl (82.0-101.0); MONOCYTE # 0.4 10^3/ul (0.3-0.9); MONOCYTES % 3.3 % (0.0-11.0); NEUTROPHIL # 11.7 10^3/ul (1.6-7.5); NEUTROPHILS % 93.4 % (39.0-77.0); NUCLEATED RED BLOOD CELLS% 0.2 /100WBC (0.0-0.0); RED CELL DISTRIBUTION WIDTH 15.3 % (11.5-14.5); WHITE BLOOD COUNT 12.5 10^3/ul (4.8-10.8)
[2016-09-11 06:03] LABS: ALBUMIN 2.2 g/dl (3.3-4.9)
[2016-09-11 06:04] LABS: POTASSIUM 3.2 mmol/L (3.5-5.1)
[2016-09-11 06:06] LABS: ALBUMIN/GLOBULIN RATIO 0.84; BILIRUBIN,INDIRECT 1.3 mg/dl (0-1.1); BILIRUBIN,TOTAL 1.3 mg/dl (0.2-1.3); CREATININE 2.19 mg/dl (0.44-1.00); TOTAL PROTEIN 4.8 g/dl (6.1-8.1)
[2016-09-11 06:07] LABS: CALCIUM 7.4 mg/dl (8.4-10.2)
[2016-09-11 06:19] LABS: MEAN PLATELET VOLUME 14.5 fl (7.4-10.4); PLATELET COUNT 41 10^3/UL (140-415)
[2016-09-11] MEDS: SODIUM BICARBONATE (IV ADD) 100 MEQ in DEXTROSE 5%-0.45% NACL 1,000 ML IV SCH (08:00)
[2016-09-11] MEDS ORDERED: POTASSIUM CHLORIDE 250 ML IVPB ONE (12:30)
[2016-09-11] MEDS: VANCOMYCIN 1 GM in NS 250 ML IVPB SCH (12:44)
--- NOTE | 2016-09-11 13:32 | CONS ---
Date/Time of Note Date/Time of Note DATE: 09/11/16 TIME: 13:29 Assessment/Plan Assessment/Plan Chief Complaint/Hosp Course IMPRESSION: 1. Hypotension/shock state, question septic versus cardiogenic, likely septic.on levo 2. Wide complex tachycardia concerning for a nonsustained ventricular tachycardia, status post cardioversion. 3. Paroxysmal atrial fibrillation. 4. Respiratory failure, status post intubation. 5. Coagulopathy secondary to Xarelto-now decreasing 6. Urinary tract infection. 7. Encephalopathy. 8. Hypernatremia. 9. Non-ST elevation myocardial infarction-slowly downtrending cardiac enzymes 10. Anemia. 11. Diabetes mellitus. 12.Bradycardia to 40-now improved 14.Acidosis 15.Thrombocytopenia Recc: -Tele -Continue levophed with weaning as tolerated -Continue abx's and f/u cx data -Hold heparin drip given low platelets -Continue Hco3 drip -Re-check INR Problems: Consultation Date/Type/Reason Admit Date/Time Sep 08, 2016 at 13:10 Initial Consult Date 09/08/16 Type of Consultation: Cardiology Reason for Consultation shock/AF Referring Provider: ALLYN BERMUDEZ MD Exam/Review of Systems Vital Signs Vitals Vital Signs Date Time Temp Pulse Resp B/P Pulse Ox O2 Delivery O2 Flow Rate FiO2 09/11/16 12:05 70 20 100 30 09/11/16 08:30 114/76 09/11/16 08:15 97.5 Mechanical Ventilator 09/08/16 11:50 15 Intake and Output 09/10/16 09/10/16 09/11/16 15:00 23:00 07:00 Intake Total 1184.1 ml 1263.65 ml 955.75 ml Output Total 430 ml 265 ml 250 ml Balance 754.1 ml 998.65 ml 705.75 ml Exam Review of Systems: CONSTITUTIONAL: No fevers, chills. PULMONARY: intubated CARDIOVASCULAR: No obvious chest pain/palpitations GASTROINTESTINAL: No nausea/vomiting. GENITOURINARY: No hematuria/dysuria. MUSCULOSKELETAL: No obvious myagias/arthalgias. PSYCHIATRIC: No documented depression. NEUROLOGIC: sedated Constitutional: other (sedated) ENMT: intubated Neck: jvd (9 cm water), supple Respiratory: diminished breath sounds (at bases/B) Cardiovascular: irregular rhythm Gastrointestinal: non-tender, soft Musculoskeletal: muscle tone Extremities: edema (trace/B) Neurological: other (sedated) Results Result Diagram: 09/11/16 0500 09/11/16 0500 Results 24 hrs Laboratory Tests Test 09/10/16 14:15 09/10/16 20:33 09/11/16 05:00 09/11/16 05:14 Acanthocytes FEW Activated Partial Thromboplast Time 161.2 *H 97.0 *H 69.5 H Anisocytosis 1+ Band Neutrophils % 8.0 H Hematocrit 34.6 L 34.1 L Hemoglobin 11.6 L 11.1 L INR International Normalized Ratio 1.56 Mean Corpuscular Hemoglobin 32.5 31.7 Mean Corpuscular Hemoglobin Concent 33.5 32.6 Mean Corpuscular Volume 96.9 97.4 Mean Platelet Volume 14.9 H 14.5 H Monocytes # 0.5 0.4 Monocytes % 3.0 3.3 Neutrophils # 14.2 H 11.7 H Neutrophils % 89.0 H 93.4 H Ovalocytes FEW Platelet Count 49 L 41 L Platelet Estimate PLT APPEAR DECREASED Poikilocytosis 1+ Prothrombin Time 18.8 #H Prothrombin Time Ratio 1.5 Red Blood Count 3.57 L 3.50 L Red Cell Distribution Width 15.0 H 15.3 H Spherocytes FEW White Blood Count 16.0 H 12.5 #H Alanine Aminotransferase (ALT/SGPT) 44 Albumin 2.2 L Albumin/Globulin Ratio 0.84 Alkaline Phosphatase 73 Anion Gap 17 H Aspartate Amino Transf (AST/SGOT) 21 Basophils # 0.0 Basophils % 0.1 Blood Urea Nitrogen 82 H Calcium Level 7.4 L Carbon Dioxide Level 23 Chloride Level 112 H Creatinine 2.19 H Direct Bilirubin 0.00 Eosinophils # 0.0 Eosinophils % 0.0 Globulin 2.60 Glucose Level 177 Indirect Bilirubin 1.3 H Lymphocytes # 0.3 L Lymphocytes % 2.6 L Nucleated Red Blood Cells # 0.0 Nucleated Red Blood Cells % 0.2 H Potassium Level 3.2 L Sodium Level 149 H Total Bilirubin 1.3 Total Protein 4.8 L Medications Medications Current Medications Flumazenil (Romazicon) 0.2 mg Q1M PRN IV BENZODIAZEPINE OVERDOSE; Start at 16:30 Naloxone HCl (Narcan) 0.4 mg Q3M PRN IV DECREASED REPIRATORY RATE; Start at 16:30 Ondansetron HCl (Zofran Inj) 4 mg Q6H PRN IV NAUSEA AND/OR VOMITING; Start 06/15 at 16:30 Nitroglycerin (Nitroglycerin (Sl Tab) 0.4 Mg) 1 tab Q5M PRN SL CHEST PAIN; Start 09/08/16 at 16:30 Acetaminophen (Tylenol Liquid) 650 mg Q6H PRN PO PAIN LEVEL 1-3 OR FEVER Last administered on 09/09/16 09:23; Admin Dose 650 MG; Start 09/08/16 at 16:30 Acetaminophen (Tylenol Tab) 650 mg Q6H PRN PO PAIN LEVEL 1-3 OR FEVER; Start at 16:30 Acetaminophen (Tylenol Supp) 650 mg Q4H PRN [place] PAIN LEVEL 1-3 OR FEVER; Start 09/08/16 at 16:30 Lorazepam (Ativan) 1 mg Q2H PRN IV ANXIETY; Start 09/08/16 at 16:30 Docusate Sodium (Colace) 100 mg Q12H PRN PO CONSTIPATION; Start 09/08/16 at 16: 30 Magnesium Hydroxide (Milk Of Mag) 30 ml DAILY PRN PO CONSTIPATION; Start at 16:30 Bisacodyl (Dulcolax) 5 mg DAILY PRN PO CONSTIPATION; Start 09/08/16 at 16:30 Pantoprazole 40 mg 40 mg DAILY@06 IV Last administered on 09/11/16 05:25; Admin Dose 40 MG; Start 09/09/16 at 06:00 Dopamine HCl/ Dextrose 250 ml @ 0 mls/hr Q0M IV Last administered on 09/08/16 18:23; Admin Dose 11.25 MLS/HR; Start 09/08/16 at 16:30 Midazolam HCl (Versed) 50 ml @ 1 mls/hr TITRATE IV Last administered on 21:21; Admin Dose 5 MLS/HR; Start 09/09/16 at 01:00 Hydrocortisone 50 mg 50 mg Q8 IV Last administered on 09/11/16 05:25; Admin Dose 50 MG; Start 09/09/16 at 09:30 Piperacillin Sod/ Tazobactam Sod 50 ml @ 100 mls/hr Q8 IVPB Last administered on 09/11/16 05:25; Admin Dose 100 MLS/HR; Start 09/09/16 at 14:00 Norepinephrine 16 mg/Dextrose 500 ml @ 0 mls/hr TITRATE IV Last administered on 09/10/16 21:10; Admin Dose 22.5 MLS/HR; Start 09/09/16 at 16:00 Vancomycin HCl 250 ml @ 125 mls/hr Q36H IVPB Last administered on 09/11/16 12 :44; Admin Dose 125 MLS/HR; Start 09/11/16 at 11:00 Sodium Bicarbonate 50 meq/Dextrose/ Sodium Chloride 1,050 ml @ 75 mls/hr Q14H IV ; Start 09/11/16 at 12:07; Stop 09/12/16 at 08:00 Dextrose/Sodium Chloride 1,000 ml @ 50 mls/hr Q20H IV ; Start 09/12/16 at 08:00 Potassium Chloride (KCl 40 MEQ/250 ML NS) 250 ml @ 62.5 mls/hr ONCE ONCE IVPB ; Start 09/11/16 at 12:30; Stop 09/11/16 at 16:29 SUNITA THOMAS Sep 11, 2016 13:32
[2016-09-11 14:02] LABS: INR 1.19; PROTIME 15.2 Sec (12.2-14.2); PT RATIO 1.2
--- NOTE | 2016-09-11 14:30 | CONS ---
Date/Time of Note Date/Time of Note DATE: 09/11/16 TIME: 14:26 Assessment/Plan Assessment/Plan Chief Complaint/Hosp Course Consultations requested for management of respiratory failure. Next History presenting; patient is a 86-year-old white lady who was brought into the hospital after the patient apparently sustained a cardiac arrest altered of the hospital the patient also required CPR lasting about 3 minutes with revival of vital signs. By the time I saw the patient and ER the patient is orally intubated is severely hypotensive with maxed out doses of Levophed. Patient also has been adequately fluid resuscitated. She was obtained from medical records. Next Past medical history; Medications; were reviewed. Allergies; are none. Next Social history; not available. Family history, occupational history is not available. Review of systems; currently under able to be obtained. Next General exam; elderly lady orally intubated, unresponsive. 1. History of renal insufficiency. 2. History of COPD, patient on long-term steroid use. 3. History of abdominal surgery. Problems: Additional Assessment/Plan Ventilator settings; AC of 14, tidal volume 450, PEEP of 5, 30% FiO2. Next Patient currently on Levophed at 5 mics per minute. Assessment recommendations; 1. Patient admitted for cardiac arrest status post CPR with very poor mental status. 2. History of underlying COPD. 3. History of renal insufficiency. 4. Thrombocytopenia. 5. Prior history of abdominal surgery as evidenced by a laparotomy scar. Continue current supportive care. Will obtain follow-up chest x-ray. Continue current antibiotics. Prognosis remains very poor. Consultation Date/Type/Reason Admit Date/Time Sep 08, 2016 at 13:10 Initial Consult Date 09/08/16 Type of Consultation: Pulmonary/critical care Referring Provider: ALLYN BERMUDEZ MD 24 HR Interval Summary Free Text/Dictation Patient condition remains critical. Remains unresponsive. Still requiring full ventilator support. Currently on tapering dose of Levophed drip. General exam; elderly lady, orally intubated, unresponsive. Patient does have some upper extremity section movements or deep sternal rubbing. Exam/Review of Systems Vital Signs Vitals Vital Signs Date Time Temp Pulse Resp B/P Pulse Ox O2 Delivery O2 Flow Rate FiO2 09/11/16 14:00 66 20 108/81 100 Mechanical Ventilator 09/11/16 12:05 30 09/11/16 11:45 97.4 09/08/16 11:50 15 Intake and Output 09/10/16 09/10/16 09/11/16 15:00 23:00 07:00 Intake Total 1184.1 ml 1263.65 ml 955.75 ml Output Total 430 ml 265 ml 250 ml Balance 754.1 ml 998.65 ml 705.75 ml Exam H EENT examination; supple neck, positive JVD. No lymphadenopathy. Midline trachea. No thyromegaly. Pupils are equal and reactive to light bilaterally. There is very mild bilateral subconjunctival edema present. Patient has fair dentition. Orally intubated. Chest examination: diminished breath in lung bases bilaterally. Upper lobes are clear. S1-S2 audible, no murmurs. Regular rhythm. Abdomen examination; soft, protuberant. No organomegaly. Bowel sounds audible. Extremity exam is; no peripheral edema. Pulses 1+ bilaterally. [employer] examination; patient remains unresponsive. Results Result Diagram: 09/11/16 0500 09/11/16 0500 Results 24 hrs Laboratory Tests Test 09/10/16 20:33 09/11/16 05:00 09/11/16 05:14 09/11/16 13:07 Activated Partial Thromboplast Time 97.0 *H 69.5 H 79.0 *H Alanine Aminotransferase (ALT/SGPT) 44 Albumin 2.2 L Albumin/Globulin Ratio 0.84 Alkaline Phosphatase 73 Anion Gap 17 H Aspartate Amino Transf (AST/SGOT) 21 Basophils # 0.0 Basophils % 0.1 Blood Urea Nitrogen 82 H Calcium Level 7.4 L Carbon Dioxide Level 23 Chloride Level 112 H Creatinine 2.19 H Direct Bilirubin 0.00 Eosinophils # 0.0 Eosinophils % 0.0 Globulin 2.60 Glucose Level 177 Hematocrit 34.1 L Hemoglobin 11.1 L Indirect Bilirubin 1.3 H Lymphocytes # 0.3 L Lymphocytes % 2.6 L Mean Corpuscular Hemoglobin 31.7 Mean Corpuscular Hemoglobin Concent 32.6 Mean Corpuscular Volume 97.4 Mean Platelet Volume 14.5 H Monocytes # 0.4 Monocytes % 3.3 Neutrophils # 11.7 H Neutrophils % 93.4 H Nucleated Red Blood Cells # 0.0 Nucleated Red Blood Cells % 0.2 H Platelet Count 41 L Potassium Level 3.2 L Red Blood Count 3.50 L Red Cell Distribution Width 15.3 H Sodium Level 149 H Total Bilirubin 1.3 Total Protein 4.8 L White Blood Count 12.5 #H Test 09/11/16 13:45 INR International Normalized Ratio 1.19 Prothrombin Time 15.2 H Prothrombin Time Ratio 1.2 Medications Medications Current Medications Flumazenil (Romazicon) 0.2 mg Q1M PRN IV BENZODIAZEPINE OVERDOSE; Start at 16:30 Naloxone HCl (Narcan) 0.4 mg Q3M PRN IV DECREASED REPIRATORY RATE; Start at 16:30 Ondansetron HCl (Zofran Inj) 4 mg Q6H PRN IV NAUSEA AND/OR VOMITING; Start 06/15 at 16:30 Nitroglycerin (Nitroglycerin (Sl Tab) 0.4 Mg) 1 tab Q5M PRN SL CHEST PAIN; Start 09/08/16 at 16:30 Acetaminophen (Tylenol Liquid) 650 mg Q6H PRN PO PAIN LEVEL 1-3 OR FEVER Last administered on 09/09/16 09:23; Admin Dose 650 MG; Start 09/08/16 at 16:30 Acetaminophen (Tylenol Tab) 650 mg Q6H PRN PO PAIN LEVEL 1-3 OR FEVER; Start at 16:30 Acetaminophen (Tylenol Supp) 650 mg Q4H PRN [place] PAIN LEVEL 1-3 OR FEVER; Start 09/08/16 at 16:30 Lorazepam (Ativan) 1 mg Q2H PRN IV ANXIETY; Start 09/08/16 at 16:30 Docusate Sodium (Colace) 100 mg Q12H PRN PO CONSTIPATION; Start 09/08/16 at 16: 30 Magnesium Hydroxide (Milk Of Mag) 30 ml DAILY PRN PO CONSTIPATION; Start at 16:30 Bisacodyl (Dulcolax) 5 mg DAILY PRN PO CONSTIPATION; Start 09/08/16 at 16:30 Pantoprazole 40 mg 40 mg DAILY@06 IV Last administered on 09/11/16 05:25; Admin Dose 40 MG; Start 09/09/16 at 06:00 Dopamine HCl/ Dextrose 250 ml @ 0 mls/hr Q0M IV Last administered on 09/08/16 18:23; Admin Dose 11.25 MLS/HR; Start 09/08/16 at 16:30 Midazolam HCl (Versed) 50 ml @ 1 mls/hr TITRATE IV Last administered on 21:21; Admin Dose 5 MLS/HR; Start 09/09/16 at 01:00 Hydrocortisone 50 mg 50 mg Q8 IV Last administered on 09/11/16 05:25; Admin Dose 50 MG; Start 09/09/16 at 09:30 Piperacillin Sod/ Tazobactam Sod 50 ml @ 100 mls/hr Q8 IVPB Last administered on 09/11/16 05:25; Admin Dose 100 MLS/HR; Start 09/09/16 at 14:00 Norepinephrine 16 mg/Dextrose 500 ml @ 0 mls/hr TITRATE IV Last administered on 09/10/16 21:10; Admin Dose 22.5 MLS/HR; Start 09/09/16 at 16:00 Vancomycin HCl 250 ml @ 125 mls/hr Q36H IVPB Last administered on 09/11/16 12 :44; Admin Dose 125 MLS/HR; Start 09/11/16 at 11:00 Sodium Bicarbonate 50 meq/Dextrose/ Sodium Chloride 1,050 ml @ 75 mls/hr Q14H IV ; Start 09/11/16 at 12:07; Stop 09/12/16 at 08:00 Dextrose/Sodium Chloride 1,000 ml @ 50 mls/hr Q20H IV ; Start 09/12/16 at 08:00 Potassium Chloride (KCl 40 MEQ/250 ML NS) 250 ml @ 62.5 mls/hr ONCE ONCE IVPB ; Start 09/11/16 at 12:30; Stop 09/11/16 at 16:29 JENSEN LOPEZ Sep 11, 2016 14:30
[2016-09-11] MEDS: SODIUM BICARBONATE (IV ADD) 50 MEQ in DEXTROSE 5%-0.45% NACL 1,000 ML IV SCH (15:29)
--- NOTE | 2016-09-11 19:10 | RADRPT ---
Vent Rate: 113 bpm RR Interval: 0 msec PA Interval: 120 msec QRS Duration: 80 msec QT Interval: 340 msec QTC Interval: 466 msec P-R-T Shannon: 78 - 99 - 0 degrees Atypical atrial flutter with 2:1 AV conduction Low voltage QRS Possible Anterolateral infarct , age undetermined Abnormal ECG Electronically Signed By: Mikey Sanders [id number]
--- NOTE | 2016-09-11 19:56 | PN ---
Date/Time of Note Date/Time of Note DATE: 09/11/16 TIME: 19:54 Assessment/Plan VTE Prophylaxis VTE Prophylaxis Intervention: other Lines/Catheters IV Catheter Type (from [facility]): Central Line Central line still needed: Yes Urinary Cath still in place: No Assessment/Plan Chief Complaint/Hosp Course IMPRESSION: 1. Acute ventilator-dependent respiratory failure, severe sepsis. The patient has acute kidney injury, hypernatremia, free water deficit. 2. Metabolic acidosis. The patient has nstemi myocardial infarction. 3. Anemia. 4 hypokalemia 5 ecolisepsis 6 thrombocytopenia plan antibiotic kcl per cardio Problems: Subjective 24 Hr Interval Summary Subjective hx not possible: pt non-verbal, other (on vent) Exam/Review of Systems Vital Signs Vitals Vital Signs Date Time Temp Pulse Resp B/P Pulse Ox O2 Delivery O2 Flow Rate FiO2 09/11/16 18:45 68 19 103/69 100 Mechanical Ventilator 09/11/16 16:55 30 09/11/16 16:00 97.6 09/08/16 11:50 15 Intake and Output 09/10/16 09/10/16 09/11/16 15:00 23:00 07:00 Intake Total 1184.1 ml 1263.65 ml 955.75 ml Output Total 430 ml 265 ml 250 ml Balance 754.1 ml 998.65 ml 705.75 ml Exam Respiratory: diminished breath sounds Cardiovascular: irregular rhythm Gastrointestinal: soft Musculoskeletal: nl extremities to inspection Results Result Diagram: 09/11/16 0500 09/11/16 0500 Results 24 hrs Laboratory Tests Test 09/10/16 20:33 09/11/16 05:00 09/11/16 05:14 09/11/16 13:07 Activated Partial Thromboplast Time 97.0 *H 69.5 H 79.0 *H Alanine Aminotransferase (ALT/SGPT) 44 Albumin 2.2 L Albumin/Globulin Ratio 0.84 Alkaline Phosphatase 73 Anion Gap 17 H Aspartate Amino Transf (AST/SGOT) 21 Basophils # 0.0 Basophils % 0.1 Blood Urea Nitrogen 82 H Calcium Level 7.4 L Carbon Dioxide Level 23 Chloride Level 112 H Creatinine 2.19 H Direct Bilirubin 0.00 Eosinophils # 0.0 Eosinophils % 0.0 Globulin 2.60 Glucose Level 177 Hematocrit 34.1 L Hemoglobin 11.1 L Indirect Bilirubin 1.3 H Lymphocytes # 0.3 L Lymphocytes % 2.6 L Mean Corpuscular Hemoglobin 31.7 Mean Corpuscular Hemoglobin Concent 32.6 Mean Corpuscular Volume 97.4 Mean Platelet Volume 14.5 H Monocytes # 0.4 Monocytes % 3.3 Neutrophils # 11.7 H Neutrophils % 93.4 H Nucleated Red Blood Cells # 0.0 Nucleated Red Blood Cells % 0.2 H Platelet Count 41 L Potassium Level 3.2 L Red Blood Count 3.50 L Red Cell Distribution Width 15.3 H Sodium Level 149 H Total Bilirubin 1.3 Total Protein 4.8 L White Blood Count 12.5 #H Test 09/11/16 13:45 INR International Normalized Ratio 1.19 Prothrombin Time 15.2 H Prothrombin Time Ratio 1.2 Medications Medications Current Medications Flumazenil (Romazicon) 0.2 mg Q1M PRN IV BENZODIAZEPINE OVERDOSE; Start at 16:30 Naloxone HCl (Narcan) 0.4 mg Q3M PRN IV DECREASED REPIRATORY RATE; Start at 16:30 Ondansetron HCl (Zofran Inj) 4 mg Q6H PRN IV NAUSEA AND/OR VOMITING; Start 06/15 at 16:30 Nitroglycerin (Nitroglycerin (Sl Tab) 0.4 Mg) 1 tab Q5M PRN SL CHEST PAIN; Start 09/08/16 at 16:30 Acetaminophen (Tylenol Liquid) 650 mg Q6H PRN PO PAIN LEVEL 1-3 OR FEVER Last administered on 09/09/16t 09:23; Admin Dose 650 MG; Start 09/08/16 at 16:30 Acetaminophen (Tylenol Tab) 650 mg Q6H PRN PO PAIN LEVEL 1-3 OR FEVER; Start at 16:30 Acetaminophen (Tylenol Supp) 650 mg Q4H PRN [place] PAIN LEVEL 1-3 OR FEVER; Start 09/08/16 at 16:30 Lorazepam (Ativan) 1 mg Q2H PRN IV ANXIETY; Start 09/08/16 at 16:30 Docusate Sodium (Colace) 100 mg Q12H PRN PO CONSTIPATION; Start 09/08/16 at 16: 30 Magnesium Hydroxide (Milk Of Mag) 30 ml DAILY PRN PO CONSTIPATION; Start at 16:30 Bisacodyl (Dulcolax) 5 mg DAILY PRN PO CONSTIPATION; Start 09/08/16 at 16:30 Pantoprazole 40 mg 40 mg DAILY@06 IV Last administered on 09/11/16 05:25; Admin Dose 40 MG; Start 09/09/16 at 06:00 Dopamine HCl/ Dextrose 250 ml @ 0 mls/hr Q0M IV Last administered on 09/08/16 18:23; Admin Dose 11.25 MLS/HR; Start 09/08/16 at 16:30 Midazolam HCl (Versed) 50 ml @ 1 mls/hr TITRATE IV Last administered on 21:21; Admin Dose 5 MLS/HR; Start 09/09/16 at 01:00 Hydrocortisone 50 mg 50 mg Q8 IV Last administered on 09/11/16 15:29; Admin Dose 50 MG; Start 09/09/16 at 09:30 Piperacillin Sod/ Tazobactam Sod 50 ml @ 100 mls/hr Q8 IVPB Last administered on 09/11/16 15:30; Admin Dose 100 MLS/HR; Start 09/09/16 at 14:00 Norepinephrine 16 mg/Dextrose 500 ml @ 0 mls/hr TITRATE IV Last administered on 09/10/16 21:10; Admin Dose 22.5 MLS/HR; Start 09/09/16 at 16:00 Vancomycin HCl 250 ml @ 125 mls/hr Q36H IVPB Last administered on 09/11/16 12 :44; Admin Dose 125 MLS/HR; Start 09/11/16 at 11:00 Sodium Bicarbonate 50 meq/Dextrose/ Sodium Chloride 1,050 ml @ 75 mls/hr Q14H IV Last administered on 09/11/16 15:29; Admin Dose 75 MLS/HR; Start 09/11/16 at 12:07; Stop 09/12/16 at 08:00 Dextrose/Sodium Chloride (D5-1/2ns) 1,000 ml @ 50 mls/hr Q20H IV ; Start at 08:00 ALLYN BERMUDEZ MD Sep 11, 2016 19:56
[2016-09-12] VITALS (91 sets, daily range): BP systolic 91–144; BP diastolic 52–101; PULSE 54–84; RESP 11–26
[2016-09-12] MEDS: IPRATROPIUM (HFA) 12.9 GM INHALER INH SCH ×6 (01:05→21:10)
[2016-09-12] MEDS: ALBUTEROL HFA 8 GM INHALER INH SCH ×6 (01:05→21:10)
[2016-09-12] MEDS: SODIUM BICARBONATE (IV ADD) 50 MEQ in DEXTROSE 5%-0.45% NACL 1,000 ML IV SCH (02:07)
[2016-09-12 04:51] LABS: ADD SCAN DIFF NO
[2016-09-12 05:09] LABS: POTASSIUM 3.2 mmol/L (3.5-5.1)
[2016-09-12 05:12] LABS: CREATININE 1.83 mg/dl (0.44-1.00)
[2016-09-12 05:13] LABS: CALCIUM 7.6 mg/dl (8.4-10.2)
[2016-09-12 05:33] LABS: ABNORMAL IP MESSAGE 1; BASOPHILS % 0.1 % (0.0-2.0); HEMATOCRIT 33.8 % (37.0-47.0); HEMOGLOBIN 11.1 g/dl (12.0-16.0); LYMPHOCYTES # 0.3 10^3/ul (0.8-2.9); MEAN CORPUSCULAR HEMOGLOBIN 32.5 pg (29.0-33.0); MEAN CORPUSCULAR HGB CONC 32.8 g/dl (32.0-37.0); MEAN CORPUSCULAR VOLUME 98.8 fl (82.0-101.0); MEAN PLATELET VOLUME 14.1 fl (7.4-10.4); MONOCYTE # 0.5 10^3/ul (0.3-0.9); MONOCYTES % 4.7 % (0.0-11.0); NEUTROPHIL # 9.4 10^3/ul (1.6-7.5); NEUTROPHILS % 91.5 % (39.0-77.0); PLATELET COUNT 38 10^3/UL (140-415); RED BLOOD COUNT 3.42 10^6/ul (4.20-5.40); RED CELL DISTRIBUTION WIDTH 15.8 % (11.5-14.5); WHITE BLOOD COUNT 10.3 10^3/ul (4.8-10.8)
[2016-09-12] MEDS: PANTOPRAZOLE 40 MG INJ IV SCH (05:43)
[2016-09-12] MEDS: HYDROCORTISONE 100 MG INJ IV SCH ×3 (05:44→23:35)
[2016-09-12] MEDS: PIPER-TAZO 2.25 GM (PMX) 50 ML IVPB SCH ×3 (05:46→17:56)
[2016-09-12] MEDS: POTASSIUM CHLORIDE 50 ML IVPB PRN ×3 (05:52→08:27)
[2016-09-12] MEDS: DEXTROSE 5%-0.45% NACL 1,000 ML IV SCH (06:13)
--- NOTE | 2016-09-12 08:26 | CONS ---
Date/Time of Note Date/Time of Note DATE: 09/12/16 TIME: 08:23 Assessment/Plan Assessment/Plan Chief Complaint/Hosp Course Consultations requested for management of respiratory failure. Next History presenting; patient is a 86-year-old white lady who was brought into the hospital after the patient apparently sustained a cardiac arrest altered of the hospital the patient also required CPR lasting about 3 minutes with revival of vital signs. By the time I saw the patient and ER the patient is orally intubated is severely hypotensive with maxed out doses of Levophed. Patient also has been adequately fluid resuscitated. She was obtained from medical records. Next Past medical history; Medications; were reviewed. Allergies; are none. Next Social history; not available. Family history, occupational history is not available. Review of systems; currently under able to be obtained. Next General exam; elderly lady orally intubated, unresponsive. 1. History of renal insufficiency. 2. History of COPD, patient on long-term steroid use. 3. History of abdominal surgery. Problems: Additional Assessment/Plan Ventilator settings; AC of 14, tidal volume 450, PEEP of 5, 30% FiO2. Chest x-ray; is pending. Next Assessment and recommendations; 1. Patient admitted for cardiac arrest status post CPR. Leading to respiratory failure. 2. Thrombocytopenia without any overt bleed. 3. Possibly some element of pneumonia. Currently on appropriate antibiotic regimen. 4. History of COPD. Continue current supportive care. Prognosis remains poor. And will depend upon adequate mental status recovery. Consultation Date/Type/Reason Admit Date/Time Sep 08, 2016 at 13:10 Initial Consult Date 09/08/16 Type of Consultation: Pulmonary/critical care Referring Provider: ALLYN BERMUDEZ MD 24 HR Interval Summary Free Text/Dictation Patient's condition remains critical. Remains unresponsive. Hemodynamically improving currently on low-dose Levophed for blood pressure maintenance. General exam; elderly lady, orally intubated, unresponsive. Patient only has minimal grimacing to deep sternal rubbing. Exam/Review of Systems Vital Signs Vitals Vital Signs Date Time Temp Pulse Resp B/P Pulse Ox O2 Delivery O2 Flow Rate FiO2 09/12/16 07:45 97.8 66 22 94/66 100 Mechanical Ventilator 09/12/16 05:19 30 09/08/16 11:50 15 Intake and Output 09/11/16 09/11/1617 14:59 22:59 06:59 Intake Total 495.61 ml 1327.47 ml 1038.09 ml Output Total 520 ml 300 ml 225 ml Balance -24.39 ml 1027.47 ml 813.09 ml Exam H EENT exam; supple neck, positive JVD. No lymphadenopathy. Midline trachea. No thyromegaly. Orally intubated. Chest examination; diminished but clear breath sounds. S1-S2 audible, no murmurs. Regular rhythm. Abdomen examination; soft, nondistended. Bowel sounds audible. Multiple ecchymoses are present involving upper extremities. [employer] examination; patient remains unresponsive. Results Result Diagram: 09/12/16 0400 09/12/16 0400 Results 24 hrs Laboratory Tests Test 09/11/16 13:07 09/11/16 13:45 09/12/16 04:00 Activated Partial Thromboplast Time 79.0 *H INR International Normalized Ratio 1.19 Prothrombin Time 15.2 H Prothrombin Time Ratio 1.2 Anion Gap 17 H Basophils # 0.0 Basophils % 0.1 Blood Urea Nitrogen 75 H Calcium Level 7.6 L Carbon Dioxide Level 23 Chloride Level 113 H Creatinine 1.83 H Eosinophils # 0.0 Eosinophils % 0.0 Glucose Level 197 Hematocrit 33.8 L Hemoglobin 11.1 L Lymphocytes # 0.3 L Lymphocytes % 3.0 L Mean Corpuscular Hemoglobin 32.5 Mean Corpuscular Hemoglobin Concent 32.8 Mean Corpuscular Volume 98.8 Mean Platelet Volume 14.1 H Monocytes # 0.5 Monocytes % 4.7 Neutrophils # 9.4 H Neutrophils % 91.5 H Nucleated Red Blood Cells # 0.0 Nucleated Red Blood Cells % 0.0 Platelet Count 38 L Potassium Level 3.2 L Red Blood Count 3.42 L Red Cell Distribution Width 15.8 H Sodium Level 150 H White Blood Count 10.3 Medications Medications Current Medications Flumazenil (Romazicon) 0.2 mg Q1M PRN IV BENZODIAZEPINE OVERDOSE; Start at 16:30 Naloxone HCl (Narcan) 0.4 mg Q3M PRN IV DECREASED REPIRATORY RATE; Start at 16:30 Ondansetron HCl (Zofran Inj) 4 mg Q6H PRN IV NAUSEA AND/OR VOMITING; Start 06/15 at 16:30 Nitroglycerin (Nitroglycerin (Sl Tab) 0.4 Mg) 1 tab Q5M PRN SL CHEST PAIN; Start 09/08/16 at 16:30 Acetaminophen (Tylenol Liquid) 650 mg Q6H PRN PO PAIN LEVEL 1-3 OR FEVER Last administered on 09/09/16 09:23; Admin Dose 650 MG; Start 09/08/16 at 16:30 Acetaminophen (Tylenol Tab) 650 mg Q6H PRN PO PAIN LEVEL 1-3 OR FEVER; Start at 16:30 Acetaminophen (Tylenol Supp) 650 mg Q4H PRN [place] PAIN LEVEL 1-3 OR FEVER; Start 09/08/16 at 16:30 Lorazepam (Ativan) 1 mg Q2H PRN IV ANXIETY; Start 09/08/16 at 16:30 Docusate Sodium (Colace) 100 mg Q12H PRN PO CONSTIPATION; Start 09/08/16 at 16: 30 Magnesium Hydroxide (Milk Of Mag) 30 ml DAILY PRN PO CONSTIPATION; Start at 16:30 Bisacodyl (Dulcolax) 5 mg DAILY PRN PO CONSTIPATION; Start 09/08/16 at 16:30 Pantoprazole 40 mg 40 mg DAILY@06 IV Last administered on 09/12/16 05:43; Admin Dose 40 MG; Start 09/09/16 at 06:00 Dopamine HCl/ Dextrose 250 ml @ 0 mls/hr Q0M IV Last administered on 09/08/16 18:23; Admin Dose 11.25 MLS/HR; Start 09/08/16 at 16:30 Midazolam HCl (Versed) 50 ml @ 1 mls/hr TITRATE IV Last administered on 21:21; Admin Dose 5 MLS/HR; Start 09/09/16 at 01:00 Hydrocortisone 50 mg 50 mg Q8 IV Last administered on 09/12/16 05:44; Admin Dose 50 MG; Start 09/09/16 at 09:30 Piperacillin Sod/ Tazobactam Sod 50 ml @ 100 mls/hr Q8 IVPB Last administered on 09/12/16 05:46; Admin Dose 100 MLS/HR; Start 09/09/16 at 14:00 Norepinephrine 16 mg/Dextrose 500 ml @ 0 mls/hr TITRATE IV Last administered on 09/10/16 21:10; Admin Dose 22.5 MLS/HR; Start 09/09/16 at 16:00 Vancomycin HCl 250 ml @ 125 mls/hr Q36H IVPB Last administered on 09/11/16 12 :44; Admin Dose 125 MLS/HR; Start 09/11/16 at 11:00 Dextrose/Sodium Chloride (D5-1/2ns) 1,000 ml @ 50 mls/hr Q20H IV Last administered on 09/12/16 06:13; Admin Dose 50 MLS/HR; Start 09/12/16 at 08:00 JENSEN LOPEZ Sep 12, 2016 08:26
--- NOTE | 2016-09-12 09:38 | RADRPT ---
PROCEDURE: XR Chest. CLINICAL INDICATION: Shortness of breath. TECHNIQUE: Single frontal view. COMPARISON: 09/10/2016. FINDINGS: The endotracheal tube, nasogastric tube, and right subclavian vein catheter remain in satisfactory p osition. There is mild pulmonary edema, unchanged. Atelectasis at the lung bases with right worse than left is unchanged. The heart is enlarged. There is calcification in the aorta consistent with atherosclerosis. Moderate right pleural effusion and small left pleural effusion are unchanged. There is no pneumothorax. IMPRESSION: 1. No change from 09/10/2016. RPTAT: QQ .Jose Watts MD, MD Date Time Electronically viewed and signed by .Joes Watts MD, MD on 09/12/2016 09:38 .R/
--- NOTE | 2016-09-12 11:20 | CONS ---
Date/Time of Note Date/Time of Note DATE: 09/12/16 TIME: 11:16 Assessment/Plan Assessment/Plan Chief Complaint/Hosp Course IMPRESSION: 1. Hypotension/shock state, question septic versus cardiogenic, likely septic.on levo 2. Wide complex tachycardia concerning for a nonsustained ventricular tachycardia, status post cardioversion. 3. Paroxysmal atrial fibrillation-rate controlled 4. Respiratory failure, status post intubation. 5. Coagulopathy secondary to Xarelto-now decreasing 6. Urinary tract infection. 7. Encephalopathy. 8. Hypernatremia. 9. Non-ST elevation myocardial infarction-slowly downtrending cardiac enzymes 10. Anemia. 11. Diabetes mellitus. 12.Bradycardia to 40-now improved 14.Acidosis 15.Thrombocytopenia Recc: -Tele -Continue levophed with weaning as tolerated -Continue abx's and f/u cx data -Hold heparin drip given low platelets and f/o HIT -Follow HR closely Problems: Consultation Date/Type/Reason Admit Date/Time Sep 08, 2016 at 13:10 Initial Consult Date 09/08/16 Type of Consultation: Cardiology Reason for Consultation shock/AF Referring Provider: ALLYN BERMUDEZ MD Exam/Review of Systems Vital Signs Vitals Vital Signs Date Time Temp Pulse Resp B/P Pulse Ox O2 Delivery O2 Flow Rate FiO2 09/12/16 10:15 67 23 112/79 100 Mechanical Ventilator 09/12/16 09:10 30 09/12/16 07:45 97.8 09/08/16 11:50 15 Intake and Output 09/11/16 09/11/16 09/12/16 15:00 23:00 07:00 Intake Total 504.98 ml 1413.72 ml 1031.22 ml Output Total 570 ml 300 ml 205 ml Balance -65.02 ml 1113.72 ml 826.22 ml Exam Review of Systems: CONSTITUTIONAL: No fevers, chills. PULMONARY: intubated CARDIOVASCULAR: No obvious chest pain/palpitations GASTROINTESTINAL: No nausea/vomiting. GENITOURINARY: No hematuria/dysuria. MUSCULOSKELETAL: No obvious myagias/arthalgias. PSYCHIATRIC: The patient denies depression. NEUROLOGIC: No weakness Constitutional: other (sedated) Psych: no complaints Head: normocephalic ENMT: mucosa pink and moist Neck: jvd (9 cm water), supple Respiratory: diminished breath sounds Cardiovascular: regular rate and rhythm Gastrointestinal: soft Musculoskeletal: muscle tone Extremities: pitting pedal edema (bilateral) Neurological: other (No focal deficits) Results Result Diagram: 09/12/16 0400 09/12/16 0400 Results 24 hrs Laboratory Tests Test 09/11/16 13:07 09/11/16 13:45 09/12/16 04:00 Activated Partial Thromboplast Time 79.0 *H INR International Normalized Ratio 1.19 Prothrombin Time 15.2 H Prothrombin Time Ratio 1.2 Anion Gap 17 H Basophils # 0.0 Basophils % 0.1 Blood Urea Nitrogen 75 H Calcium Level 7.6 L Carbon Dioxide Level 23 Chloride Level 113 H Creatinine 1.83 H Eosinophils # 0.0 Eosinophils % 0.0 Glucose Level 197 Hematocrit 33.8 L Hemoglobin 11.1 L Lymphocytes # 0.3 L Lymphocytes % 3.0 L Mean Corpuscular Hemoglobin 32.5 Mean Corpuscular Hemoglobin Concent 32.8 Mean Corpuscular Volume 98.8 Mean Platelet Volume 14.1 H Monocytes # 0.5 Monocytes % 4.7 Neutrophils # 9.4 H Neutrophils % 91.5 H Nucleated Red Blood Cells # 0.0 Nucleated Red Blood Cells % 0.0 Platelet Count 38 L Potassium Level 3.2 L Red Blood Count 3.42 L Red Cell Distribution Width 15.8 H Sodium Level 150 H White Blood Count 10.3 Medications Medications Current Medications Flumazenil (Romazicon) 0.2 mg Q1M PRN IV BENZODIAZEPINE OVERDOSE; Start at 16:30 Naloxone HCl (Narcan) 0.4 mg Q3M PRN IV DECREASED REPIRATORY RATE; Start at 16:30 Ondansetron HCl (Zofran Inj) 4 mg Q6H PRN IV NAUSEA AND/OR VOMITING; Start 06/15 at 16:30 Nitroglycerin (Nitroglycerin (Sl Tab) 0.4 Mg) 1 tab Q5M PRN SL CHEST PAIN; Start 09/08/16 at 16:30 Acetaminophen (Tylenol Liquid) 650 mg Q6H PRN PO PAIN LEVEL 1-3 OR FEVER Last administered on 09/09/16t 09:23; Admin Dose 650 MG; Start 09/08/16 at 16:30 Acetaminophen (Tylenol Tab) 650 mg Q6H PRN PO PAIN LEVEL 1-3 OR FEVER; Start at 16:30 Acetaminophen (Tylenol Supp) 650 mg Q4H PRN [place] PAIN LEVEL 1-3 OR FEVER; Start 09/08/16 at 16:30 Lorazepam (Ativan) 1 mg Q2H PRN IV ANXIETY; Start 09/08/16 at 16:30 Docusate Sodium (Colace) 100 mg Q12H PRN PO CONSTIPATION; Start 09/08/16 at 16: 30 Magnesium Hydroxide (Milk Of Mag) 30 ml DAILY PRN PO CONSTIPATION; Start at 16:30 Bisacodyl (Dulcolax) 5 mg DAILY PRN PO CONSTIPATION; Start 09/08/16 at 16:30 Pantoprazole 40 mg 40 mg DAILY@06 IV Last administered on 09/12/16 05:43; Admin Dose 40 MG; Start 09/09/16 at 06:00 Dopamine HCl/ Dextrose 250 ml @ 0 mls/hr Q0M IV Last administered on 09/08/16 18:23; Admin Dose 11.25 MLS/HR; Start 09/08/16 at 16:30 Midazolam HCl (Versed) 50 ml @ 1 mls/hr TITRATE IV Last administered on 21:21; Admin Dose 5 MLS/HR; Start 09/09/16 at 01:00 Hydrocortisone 50 mg 50 mg Q8 IV Last administered on 09/12/16 05:44; Admin Dose 50 MG; Start 09/09/16 at 09:30 Piperacillin Sod/ Tazobactam Sod 50 ml @ 100 mls/hr Q8 IVPB Last administered on 09/12/16 05:46; Admin Dose 100 MLS/HR; Start 09/09/16 at 14:00 Norepinephrine 16 mg/Dextrose 500 ml @ 0 mls/hr TITRATE IV Last administered on 09/10/16 21:10; Admin Dose 22.5 MLS/HR; Start 09/09/16 at 16:00 Vancomycin HCl 250 ml @ 125 mls/hr Q36H IVPB Last administered on 09/11/16 12 :44; Admin Dose 125 MLS/HR; Start 09/11/16 at 11:00 Dextrose/Sodium Chloride (D5-1/2ns) 1,000 ml @ 50 mls/hr Q20H IV Last administered on 09/12/16 06:13; Admin Dose 50 MLS/HR; Start 09/12/16 at 08:00 Miscellaneous Information (*Rx Drug Level Order Reminder*) VANCO TROUGH @ 2, 200 ON... ONCE ONCE XX ; Start 09/12/16 at 22:00; Stop 09/12/16 at 22:01 SUNITA THOMAS 16, 2017 11:19
[2016-09-12] MEDS ORDERED: DEXTROSE 50% 50 ML SYRINGE IV PRN ×2 (12:30)
[2016-09-12] MEDS ORDERED: GLUCOSE GEL 15 GRAM TUBE BUCCAL PRN (12:30)
[2016-09-12] MEDS ORDERED: GLUCAGON 1 MG INJ IM PRN (12:30)
[2016-09-12] MEDS ORDERED: GLUCOSE GEL 15 GRAM TUBE PO PRN ×2 (12:30)
[2016-09-12] MEDS: MUPIROCIN 2% 22 GM OINT TOP SCH ×2 (13:53→21:28)
[2016-09-12] MEDS: INSULIN ASPART [NOVOLOG] 3 ML PEN SC SCH ×3 (13:58→21:00)
--- NOTE | 2016-09-12 19:09 | PN ---
Date/Time of Note Date/Time of Note DATE: 09/12/16 TIME: 19:08 Assessment/Plan VTE Prophylaxis VTE Prophylaxis Intervention: other Lines/Catheters IV Catheter Type (from [facility]): Central Line Central line still needed: Yes Urinary Cath still in place: No Assessment/Plan Chief Complaint/Hosp Course IMPRESSION: 1. Acute ventilator-dependent respiratory failure, severe sepsis. The patient has acute kidney injury, hypernatremia, free water deficit. 2. Metabolic acidosis. The patient has nstemi myocardial infarction. 3. Anemia. 4 hypokalemia 5 ecolisepsis 6 thrombocytopenia plan antibiotic kcl per cardio Problems: Subjective 24 Hr Interval Summary Cardiovascular: no complaints Gastrointestinal: no complaints Genitourinary: no complaints Exam/Review of Systems Vital Signs Vitals Vital Signs Date Time Temp Pulse Resp B/P Pulse Ox O2 Delivery O2 Flow Rate FiO2 09/12/16 18:15 61 17 95/74 100 Mechanical Ventilator 09/12/16 17:10 30 09/12/16 16:00 97.8 09/08/16 11:50 15 Intake and Output 09/11/16 09/11/16 09/12/16 15:00 23:00 07:00 Intake Total 504.98 ml 1413.72 ml 1031.22 ml Output Total 570 ml 300 ml 205 ml Balance -65.02 ml 1113.72 ml 826.22 ml Exam Neck: supple Respiratory: clear to auscultation Cardiovascular: regular rate and rhythm Gastrointestinal: soft Results Result Diagram: 09/12/16 0400 09/12/16 0400 Results 24 hrs Laboratory Tests Test 09/12/16 04:00 09/12/16 12:09 09/12/16 17:53 Anion Gap 17 H Basophils # 0.0 Basophils % 0.1 Blood Urea Nitrogen 75 H Calcium Level 7.6 L Carbon Dioxide Level 23 Chloride Level 113 H Creatinine 1.83 H Eosinophils # 0.0 Eosinophils % 0.0 Glucose Level 197 Hematocrit 33.8 L Hemoglobin 11.1 L Hemoglobin A1c 5.8 Lymphocytes # 0.3 L Lymphocytes % 3.0 L Mean Corpuscular Hemoglobin 32.5 Mean Corpuscular Hemoglobin Concent 32.8 Mean Corpuscular Volume 98.8 Mean Platelet Volume 14.1 H Monocytes # 0.5 Monocytes % 4.7 Neutrophils # 9.4 H Neutrophils % 91.5 H Nucleated Red Blood Cells # 0.0 Nucleated Red Blood Cells % 0.0 Platelet Count 38 L Potassium Level 3.2 L Red Blood Count 3.42 L Red Cell Distribution Width 15.8 H Sodium Level 150 H White Blood Count 10.3 Bedside Glucose 190 170 Medications Medications Current Medications Flumazenil (Romazicon) 0.2 mg Q1M PRN IV BENZODIAZEPINE OVERDOSE; Start at 16:30 Naloxone HCl (Narcan) 0.4 mg Q3M PRN IV DECREASED REPIRATORY RATE; Start at 16:30 Ondansetron HCl (Zofran Inj) 4 mg Q6H PRN IV NAUSEA AND/OR VOMITING; Start 06/15 at 16:30 Nitroglycerin (Nitroglycerin (Sl Tab) 0.4 Mg) 1 tab Q5M PRN SL CHEST PAIN; Start 09/08/16 at 16:30 Acetaminophen (Tylenol Liquid) 650 mg Q6H PRN PO PAIN LEVEL 1-3 OR FEVER Last administered on 09/09/16 09:23; Admin Dose 650 MG; Start 09/08/16 at 16:30 Acetaminophen (Tylenol Tab) 650 mg Q6H PRN PO PAIN LEVEL 1-3 OR FEVER; Start at 16:30 Acetaminophen (Tylenol Supp) 650 mg Q4H PRN [place] PAIN LEVEL 1-3 OR FEVER; Start 09/08/16 at 16:30 Lorazepam (Ativan) 1 mg Q2H PRN IV ANXIETY; Start 09/08/16 at 16:30 Docusate Sodium (Colace) 100 mg Q12H PRN PO CONSTIPATION; Start 09/08/16 at 16: 30 Magnesium Hydroxide (Milk Of Mag) 30 ml DAILY PRN PO CONSTIPATION; Start at 16:30 Bisacodyl (Dulcolax) 5 mg DAILY PRN PO CONSTIPATION; Start 09/08/16 at 16:30 Pantoprazole 40 mg 40 mg DAILY@06 IV Last administered on 09/12/16 05:43; Admin Dose 40 MG; Start 09/09/16 at 06:00 Dopamine HCl/ Dextrose 250 ml @ 0 mls/hr Q0M IV Last administered on 09/08/16 18:23; Admin Dose 11.25 MLS/HR; Start 09/08/16 at 16:30 Midazolam HCl (Versed) 50 ml @ 1 mls/hr TITRATE IV Last administered on 21:21; Admin Dose 5 MLS/HR; Start 09/09/16 at 01:00 Hydrocortisone 50 mg 50 mg Q8 IV Last administered on 09/12/16 13:53; Admin Dose 50 MG; Start 09/09/16 at 09:30 Norepinephrine 16 mg/Dextrose 500 ml @ 0 mls/hr TITRATE IV Last administered on 09/10/16 21:10; Admin Dose 22.5 MLS/HR; Start 09/09/16 at 16:00 Vancomycin HCl 250 ml @ 125 mls/hr Q36H IVPB Last administered on 09/11/16 12 :44; Admin Dose 125 MLS/HR; Start 09/11/16 at 11:00 Dextrose/Sodium Chloride (D5-1/2ns) 1,000 ml @ 50 mls/hr Q20H IV Last administered on 09/12/16 06:13; Admin Dose 50 MLS/HR; Start 09/12/16 at 08:00 Miscellaneous Information VANCO TROUGH @ 2,200 ON... ONCE ONCE XX ; Start at 22:00; Stop 09/12/16 at 22:01 Piperacillin Sod/ Tazobactam Sod (Zosyn 2.25gm/ 50ml (Pmx)) 50 ml @ 100 mls/hr Q6 IVPB Last administered on 09/12/16 17:56; Admin Dose 100 MLS/HR; Start at 12:00 Mupirocin (Bactroban) 1 applic BID TOP Last administered on 09/12/16 13:53; Admin Dose 1 APPLIC; Start 09/12/16 at 13:30 Insulin Aspart (Novolog Insulin Pen) NOVOLOG *MILD* ALGORI... Q4 SC Last administered on 09/12/16 17:56; Admin Dose 1 UNIT; Start 09/12/16 at 13:00 Miscellaneous Information 1 ea NOTE XX ; Start 09/12/16 at 12:30 Glucose (Glutose) 15 gm Q15M PRN PO DECREASED GLUCOSE; Start 09/12/16 at 12:30 Glucose (Glutose) 22.5 gm Q15M PRN PO DECREASED GLUCOSE; Start 09/12/16 at 12: 30 Dextrose (D50w Syringe) 25 ml Q15M PRN IV DECREASED GLUCOSE; Start 09/12/16 at 12:30 Dextrose (D50w Syringe) 50 ml Q15M PRN IV DECREASED GLUCOSE; Start 09/12/16 at 12:30 Glucagon (Glucagen) 1 mg Q15M PRN IM DECREASED GLUCOSE; Start 09/12/16 at 12:30 Glucose (Glutose) 15 gm Q15M PRN BUCCAL DECREASED GLUCOSE; Start 09/12/16 at 12 :30 ALLYN BERMUDEZ MD Sep 12, 2016 19:09
[2016-09-12] MEDS ORDERED: POTASSIUM CHLORIDE 250 ML IVPB ONE (19:30)
[2016-09-12] MEDS: VANCOMYCIN 1 GM in NS 250 ML IVPB SCH (23:35)
[2016-09-13] VITALS (73 sets, daily range): BP systolic 79–154; BP diastolic 37–92; PULSE 44–105; RESP 9–22
[2016-09-13] MEDS: LORAZEPAM 2 MG INJ IV PRN (00:22)
[2016-09-13] MEDS: INSULIN ASPART [NOVOLOG] 3 ML PEN SC SCH ×6 (01:00→22:03)
[2016-09-13] MEDS: ALBUTEROL HFA 8 GM INHALER INH SCH ×6 (01:13→20:08)
[2016-09-13] MEDS: IPRATROPIUM (HFA) 12.9 GM INHALER INH SCH ×6 (01:13→20:08)
[2016-09-13] MEDS: PIPER-TAZO 2.25 GM (PMX) 50 ML IVPB SCH ×4 (02:03→18:25)
[2016-09-13] MEDS: DEXTROSE 5%-0.45% NACL 1,000 ML IV SCH (04:36)
[2016-09-13 04:37] LABS: ADD SCAN DIFF NO
[2016-09-13 04:48] LABS: ABNORMAL IP MESSAGE 1; HEMATOCRIT 32.4 % (37.0-47.0); HEMOGLOBIN 10.3 g/dl (12.0-16.0); LYMPHOCYTES # 0.3 10^3/ul (0.8-2.9); LYMPHOCYTES % 5.7 % (15.0-51.0); MEAN CORPUSCULAR HGB CONC 31.8 g/dl (32.0-37.0); MEAN CORPUSCULAR VOLUME 100.6 fl (82.0-101.0); MEAN PLATELET VOLUME 13.2 fl (7.4-10.4); MONOCYTE # 0.4 10^3/ul (0.3-0.9); MONOCYTES % 7.3 % (0.0-11.0); NEUTROPHIL # 4.8 10^3/ul (1.6-7.5); NEUTROPHILS % 86.3 % (39.0-77.0); RED BLOOD COUNT 3.22 10^6/ul (4.20-5.40); WHITE BLOOD COUNT 5.6 10^3/ul (4.8-10.8)
[2016-09-13 04:54] LABS: PLATELET COUNT 30 10^3/UL (140-415)
[2016-09-13 04:55] LABS: ALBUMIN 2.1 g/dl (3.3-4.9); POTASSIUM 3.3 mmol/L (3.5-5.1)
[2016-09-13 04:58] LABS: ALBUMIN/GLOBULIN RATIO 0.87; BILIRUBIN,INDIRECT 1.2 mg/dl (0-1.1); BILIRUBIN,TOTAL 1.2 mg/dl (0.2-1.3); CALCIUM 7.8 mg/dl (8.4-10.2); CREATININE 1.66 mg/dl (0.44-1.00); TOTAL PROTEIN 4.5 g/dl (6.1-8.1)
[2016-09-13] MEDS: PANTOPRAZOLE 40 MG INJ IV SCH (06:25)
[2016-09-13] MEDS: HYDROCORTISONE 100 MG INJ IV SCH ×3 (06:26→21:36)
[2016-09-13] MEDS: POTASSIUM CHLORIDE 50 ML IVPB PRN ×4 (06:44→18:30)
--- NOTE | 2016-09-13 07:14 | CONS ---
Date/Time of Note Date/Time of Note DATE: 09/13/16 TIME: 07:10 Assessment/Plan Assessment/Plan Chief Complaint/Hosp Course Consultations requested for management of respiratory failure. Next History presenting; patient is a 86-year-old white lady who was brought into the hospital after the patient apparently sustained a cardiac arrest altered of the hospital the patient also required CPR lasting about 3 minutes with revival of vital signs. By the time I saw the patient and ER the patient is orally intubated is severely hypotensive with maxed out doses of Levophed. Patient also has been adequately fluid resuscitated. She was obtained from medical records. Next Past medical history; Medications; were reviewed. Allergies; are none. Next Social history; not available. Family history, occupational history is not available. Review of systems; currently under able to be obtained. Next General exam; elderly lady orally intubated, unresponsive. 1. History of renal insufficiency. 2. History of COPD, patient on long-term steroid use. 3. History of abdominal surgery. Problems: Additional Assessment/Plan Ventilator settings; AC of 14, tidal volume 450, PEEP of 5, 30% FiO2. Chest x-ray was reviewed from yesterday afternoon which is showing cardiomegaly with mild pruritus or congestion. Next Assessment recommendations; 1. Patient admitted with cardiac arrest status post CPR with significantly improved mental status however patient should not able to follow any commands. 2. History of renal insufficiency with stable serum creatinine. 3. Thrombus cytopenia, without any overt bleed. With stable hematocrit. 4. CHF. 5. Possibly some element of aspiration pneumonia. Change ventilator settings, to CPAP mode. Patient was assessed at bedside and currently has excellent parameters. Would recommend obtaining a blood gas in 30 -45 minutes post ventilator setting change. Meanwhile continue current supportive care. Consultation Date/Type/Reason Admit Date/Time Sep 08, 2016 at 13:10 Initial Consult Date 09/08/16 Type of Consultation: Pulmonary/critical care Referring Provider: ALLYN BERMUDEZ MD 24 HR Interval Summary Free Text/Dictation Patient condition is stable. Still on full ventilator support via endotracheal tube. Patient's mental status however is significantly improved. She is awake but does not track or follow any commands. General exam; elderly lady, orally intubated, awake. Currently in no distress. Trying to move upper extremities spontaneously. Exam/Review of Systems Vital Signs Vitals Vital Signs Date Time Temp Pulse Resp B/P Pulse Ox O2 Delivery O2 Flow Rate FiO2 09/13/16 05:19 59 21 100 30 09/13/16 03:00 101/60 Mechanical Ventilator 09/13/16 00:00 97.9 Intake and Output 09/12/16 09/12/16 09/13/16 15:00 23:00 07:00 Intake Total 948.73 ml 695 ml 175 ml Output Total 270 ml 205 ml 165 ml Balance 678.73 ml 490 ml 10 ml Exam H EENT examination; supple neck, positive JVD. No lymphadenopathy. Midline trachea. No thyromegaly. No neck masses. Pupils are equal and reactive to light bilaterally. Orally intubated. Chest examination; diminished breath on the lung bases, upper lobes are clear to auscultation. S1-S2 audible, no murmurs. Regular rhythm. Abdomen examination; soft, nondistended. No organomegaly. Bowel sounds audible. There is a well-healed infraumbilical laparotomy scar. Extremity examination a micro no peripheral edema. Multiple ecchymosis involving all 4 extremities. Pulses 1+ bilaterally. 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 Results Result Diagram: 09/13/16 0330 09/13/16 0330 Results 24 hrs Laboratory Tests Test 09/12/16 12:09 09/12/16 17:53 09/12/16 21:25 09/12/16 22:13 Bedside Glucose 190 170 139 Vancomycin Level Trough 16.5 Test 09/13/16 02:01 09/13/16 03:30 09/13/16 06:18 Bedside Glucose 131 163 Alanine Aminotransferase (ALT/SGPT) 29 Albumin 2.1 L Albumin/Globulin Ratio 0.87 Alkaline Phosphatase 90 Anion Gap 13 Aspartate Amino Transf (AST/SGOT) 17 Basophils # 0.0 Basophils % 0.0 Blood Urea Nitrogen 74 H Calcium Level 7.8 L Carbon Dioxide Level 24 Chloride Level 115 H Creatinine 1.66 H Direct Bilirubin 0.00 Eosinophils # 0.0 Eosinophils % 0.0 Globulin 2.40 Glucose Level 162 Hematocrit 32.4 L Hemoglobin 10.3 L Indirect Bilirubin 1.2 H Lymphocytes # 0.3 L Lymphocytes % 5.7 L Mean Corpuscular Hemoglobin 32.0 Mean Corpuscular Hemoglobin Concent 31.8 L Mean Corpuscular Volume 100.6 Mean Platelet Volume 13.2 H Monocytes # 0.4 Monocytes % 7.3 Neutrophils # 4.8 Neutrophils % 86.3 H Nucleated Red Blood Cells # 0.0 Nucleated Red Blood Cells % 0.0 Platelet Count 30 #L Potassium Level 3.3 L Red Blood Count 3.22 L Red Cell Distribution Width 16.0 H Sodium Level 149 H Total Bilirubin 1.2 Total Protein 4.5 L White Blood Count 5.6 # Medications Medications Current Medications Flumazenil (Romazicon) 0.2 mg Q1M PRN IV BENZODIAZEPINE OVERDOSE; Start at 16:30 Naloxone HCl (Narcan) 0.4 mg Q3M PRN IV DECREASED REPIRATORY RATE; Start at 16:30 Ondansetron HCl (Zofran Inj) 4 mg Q6H PRN IV NAUSEA AND/OR VOMITING; Start 06/15 at 16:30 Nitroglycerin (Nitroglycerin (Sl Tab) 0.4 Mg) 1 tab Q5M PRN SL CHEST PAIN; Start 09/08/16 at 16:30 Acetaminophen (Tylenol Liquid) 650 mg Q6H PRN PO PAIN LEVEL 1-3 OR FEVER Last administered on 09/09/16 09:23; Admin Dose 650 MG; Start 09/08/16 at 16:30 Acetaminophen (Tylenol Tab) 650 mg Q6H PRN PO PAIN LEVEL 1-3 OR FEVER; Start at 16:30 Acetaminophen (Tylenol Supp) 650 mg Q4H PRN [place] PAIN LEVEL 1-3 OR FEVER; Start 09/08/16 at 16:30 Lorazepam (Ativan) 1 mg Q2H PRN IV ANXIETY Last administered on 09/13/16 00:22 ; Admin Dose 1 MG; Start 09/08/16 at 16:30 Docusate Sodium (Colace) 100 mg Q12H PRN PO CONSTIPATION; Start 09/08/16 at 16: 30 Magnesium Hydroxide (Milk Of Mag) 30 ml DAILY PRN PO CONSTIPATION; Start at 16:30 Bisacodyl (Dulcolax) 5 mg DAILY PRN PO CONSTIPATION; Start 09/08/16 at 16:30 Pantoprazole 40 mg 40 mg DAILY@06 IV Last administered on 09/13/16 06:25; Admin Dose 40 MG; Start 09/09/16 at 06:00 Dopamine HCl/ Dextrose 250 ml @ 0 mls/hr Q0M IV Last administered on 09/08/16 18:23; Admin Dose 11.25 MLS/HR; Start 09/08/16 at 16:30 Midazolam HCl (Versed) 50 ml @ 1 mls/hr TITRATE IV Last administered on 21:21; Admin Dose 5 MLS/HR; Start 09/09/16 at 01:00 Hydrocortisone 50 mg 50 mg Q8 IV Last administered on 09/13/16 06:26; Admin Dose 50 MG; Start 09/09/16 at 09:30 Norepinephrine 16 mg/Dextrose 500 ml @ 0 mls/hr TITRATE IV Last administered on 09/10/16 21:10; Admin Dose 22.5 MLS/HR; Start 09/09/16 at 16:00 Vancomycin HCl 250 ml @ 125 mls/hr Q36H IVPB Last administered on 09/12/16 23 :35; Admin Dose 125 MLS/HR; Start 09/11/16 at 11:00 Dextrose/Sodium Chloride 1,000 ml @ 50 mls/hr Q20H IV Last administered on 04:36; Admin Dose 50 MLS/HR; Start 09/12/16 at 08:00 Piperacillin Sod/ Tazobactam Sod (Zosyn 2.25gm/ 50ml (Pmx)) 50 ml @ 100 mls/hr Q6 IVPB Last administered on 09/13/16 06:26; Admin Dose 100 MLS/HR; Start at 12:00 Mupirocin (Bactroban) 1 applic BID TOP Last administered on 09/12/16 21:28; Admin Dose 1 APPLIC; Start 09/12/16 at 13:30 Insulin Aspart (Novolog Insulin Pen) NOVOLOG *MILD* ALGORI... Q4 SC Last administered on 09/13/16 06:27; Admin Dose 1 UNIT; Start 09/12/16 at 13:00 Miscellaneous Information 1 ea NOTE XX ; Start 09/12/16 at 12:30 Glucose (Glutose) 15 gm Q15M PRN PO DECREASED GLUCOSE; Start 09/12/16 at 12:30 Glucose (Glutose) 22.5 gm Q15M PRN PO DECREASED GLUCOSE; Start 09/12/16 at 12: 30 Dextrose (D50w Syringe) 25 ml Q15M PRN IV DECREASED GLUCOSE; Start 09/12/16 at 12:30 Dextrose (D50w Syringe) 50 ml Q15M PRN IV DECREASED GLUCOSE; Start 09/12/16 at 12:30 Glucagon (Glucagen) 1 mg Q15M PRN IM DECREASED GLUCOSE; Start 09/12/16 at 12:30 Glucose (Glutose) 15 gm Q15M PRN BUCCAL DECREASED GLUCOSE; Start 09/12/16 at 12 :30 JENSEN LOPEZ Sep 13, 2016 07:14
[2016-09-13] MEDS ORDERED: FUROSEMIDE 40 MG INJ IV ONE (07:30)
[2016-09-13] MEDS: MUPIROCIN 2% 22 GM OINT TOP SCH ×2 (09:00→21:36)
--- NOTE | 2016-09-13 09:24 | PN ---
Date/Time of Note Date/Time of Note DATE: 09/13/16 TIME: 09:18 Assessment/Plan VTE Prophylaxis VTE Prophylaxis Intervention: SCD's Lines/Catheters IV C[facility]ter Type [facility]from [facility] Central Line Central line still needed: Yes Urinary Cath still in place: Yes Reason Cath still needed: urinary retention Assessment/Plan Chief Complaint/Hosp Course 1. Acute ventilator-dependent respiratory failure, fail weaning today. 2. Metabolic acidosis. The patient has nstemi myocardial infarction. 3. Anemia. 4 hypokalemia, kcl replaced today 5 E. coli sepsis, off pressors 6 thrombocytopenia 7. Acute kidney injury 8. NG tube feeding tolerating well Problems: Assessment/Plan 1. continue A/b 2. Continue weaning from ventillator. 3. 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 Subjective 24 Hr Interval Summary Subjective hx not possible: pt non-verbal Exam/Review of Systems Vital Signs Vitals Vital Signs Date Time Temp Pulse Resp B/P Pulse Ox O2 Delivery O2 Flow Rate FiO2 09/13/16 05:19 59 21 100 30 09/13/16 03:00 101/60 Mechanical Ventilator 09/13/16 00:00 97.9 Intake and Output 09/12/16 09/12/16 09/13/16 15:00 23:00 07:00 Intake Total 948.73 ml 695 ml 1110 ml Output Total 270 ml 205 ml 395 ml Balance 678.73 ml 490 ml 715 ml Exam Constitutional: non-verbal Eyes: nl conjunctiva Neck: supple Respiratory: clear to auscultation, crackles/rales, diminished breath sounds Cardiovascular: edema, regular rate and rhythm Gastrointestinal: other (ng tube), soft Extremities: normal pulses Skin: nl turgor Results Result Diagram: 09/13/16 0330 09/13/16 0330 Results 24 hrs Laboratory Tests Test 09/12/16 12:09 09/12/16 17:53 09/12/16 21:25 09/12/16 22:13 Bedside Glucose 190 170 139 Vancomycin Level Trough 16.5 Test 09/13/16 02:01 09/13/16 03:30 09/13/16 06:18 Bedside Glucose 131 163 Alanine Aminotransferase (ALT/SGPT) 29 Albumin 2.1 L Albumin/Globulin Ratio 0.87 Alkaline Phosphatase 90 Anion Gap 13 Aspartate Amino Transf (AST/SGOT) 17 Basophils # 0.0 Basophils % 0.0 Blood Urea Nitrogen 74 H Calcium Level 7.8 L Carbon Dioxide Level 24 Chloride Level 115 H Creatinine 1.66 H Direct Bilirubin 0.00 Eosinophils # 0.0 Eosinophils % 0.0 Globulin 2.40 Glucose Level 162 Hematocrit 32.4 L Hemoglobin 10.3 L Indirect Bilirubin 1.2 H Lymphocytes # 0.3 L Lymphocytes % 5.7 L Mean Corpuscular Hemoglobin 32.0 Mean Corpuscular Hemoglobin Concent 31.8 L Mean Corpuscular Volume 100.6 Mean Platelet Volume 13.2 H Monocytes # 0.4 Monocytes % 7.3 Neutrophils # 4.8 Neutrophils % 86.3 H Nucleated Red Blood Cells # 0.0 Nucleated Red Blood Cells % 0.0 Platelet Count 30 #L Potassium Level 3.3 L Red Blood Count 3.22 L Red Cell Distribution Width 16.0 H Sodium Level 149 H Total Bilirubin 1.2 Total Protein 4.5 L White Blood Count 5.6 # Medications Medications Current Medications Flumazenil (Romazicon) 0.2 mg Q1M PRN IV BENZODIAZEPINE OVERDOSE; Start at 16:30 Naloxone HCl (Narcan) 0.4 mg Q3M PRN IV DECREASED REPIRATORY RATE; Start at 16:30 Ondansetron HCl (Zofran Inj) 4 mg Q6H PRN IV NAUSEA AND/OR VOMITING; Start 06/15 at 16:30 Nitroglycerin (Nitroglycerin (Sl Tab) 0.4 Mg) 1 tab Q5M PRN SL CHEST PAIN; Start 09/08/16 at 16:30 Acetaminophen (Tylenol Liquid) 650 mg Q6H PRN PO PAIN LEVEL 1-3 OR FEVER Last administered on 09/09/16 09:23; Admin Dose 650 MG; Start 09/08/16 at 16:30 Acetaminophen (Tylenol Tab) 650 mg Q6H PRN PO PAIN LEVEL 1-3 OR FEVER; Start at 16:30 Acetaminophen (Tylenol Supp) 650 mg Q4H PRN [place] PAIN LEVEL 1-3 OR FEVER; Start 09/08/16 at 16:30 Lorazepam (Ativan) 1 mg Q2H PRN IV ANXIETY Last administered on 09/13/16 00:22 ; Admin Dose 1 MG; Start 09/08/16 at 16:30 Docusate Sodium (Colace) 100 mg Q12H PRN PO CONSTIPATION; Start 09/08/16 at 16: 30 Magnesium Hydroxide (Milk Of Mag) 30 ml DAILY PRN PO CONSTIPATION; Start at 16:30 Bisacodyl (Dulcolax) 5 mg DAILY PRN PO CONSTIPATION; Start 09/08/16 at 16:30 Pantoprazole 40 mg 40 mg DAILY@06 IV Last administered on 09/13/16 06:25; Admin Dose 40 MG; Start 09/09/16 at 06:00 Dopamine HCl/ Dextrose 250 ml @ 0 mls/hr Q0M IV Last administered on 09/08/16 18:23; Admin Dose 11.25 MLS/HR; Start 09/08/16 at 16:30 Midazolam HCl (Versed) 50 ml @ 1 mls/hr TITRATE IV Last administered on 21:21; Admin Dose 5 MLS/HR; Start 09/09/16 at 01:00 Hydrocortisone 50 mg 50 mg Q8 IV Last administered on 09/13/16 06:26; Admin Dose 50 MG; Start 09/09/16 at 09:30 Norepinephrine 16 mg/Dextrose 500 ml @ 0 mls/hr TITRATE IV Last administered on 09/10/16 21:10; Admin Dose 22.5 MLS/HR; Start 09/09/16 at 16:00 Vancomycin HCl 250 ml @ 125 mls/hr Q36H IVPB Last administered on 09/12/16 23 :35; Admin Dose 125 MLS/HR; Start 09/11/16 at 11:00 Dextrose/Sodium Chloride 1,000 ml @ 50 mls/hr Q20H IV Last administered on 04:36; Admin Dose 50 MLS/HR; Start 09/12/16 at 08:00 Piperacillin Sod/ Tazobactam Sod (Zosyn 2.25gm/ 50ml (Pmx)) 50 ml @ 100 mls/hr Q6 IVPB Last administered on 09/13/16 06:26; Admin Dose 100 MLS/HR; Start at 12:00 Mupirocin (Bactroban) 1 applic BID TOP Last administered on 09/12/16 21:28; Admin Dose 1 APPLIC; Start 09/12/16 at 13:30 Insulin Aspart (Novolog Insulin Pen) NOVOLOG *MILD* ALGORI... Q4 SC Last administered on 09/13/16 06:27; Admin Dose 1 UNIT; Start 09/12/16 at 13:00 Miscellaneous Information 1 ea NOTE XX ; Start 09/12/16 at 12:30 Glucose (Glutose) 15 gm Q15M PRN PO DECREASED GLUCOSE; Start 09/12/16 at 12:30 Glucose (Glutose) 22.5 gm Q15M PRN PO DECREASED GLUCOSE; Start 09/12/16 at 12: 30 Dextrose (D50w Syringe) 25 ml Q15M PRN IV DECREASED GLUCOSE; Start 09/12/16 at 12:30 Dextrose (D50w Syringe) 50 ml Q15M PRN IV DECREASED GLUCOSE; Start 09/12/16 at 12:30 Glucagon (Glucagen) 1 mg Q15M PRN IM DECREASED GLUCOSE; Start 09/12/16 at 12:30 Glucose (Glutose) 15 gm Q15M PRN BUCCAL DECREASED GLUCOSE; Start 09/12/16 at 12 :30 DESTINY OCASIO Sep 13, 2016 09:24
--- NOTE | 2016-09-13 11:58 | CONS ---
Date/Time of Note Date/Time of Note DATE: 09/13/16 TIME: 11:53 Assessment/Plan Assessment/Plan Chief Complaint/Hosp Course IMPRESSION: 1. Hypotension/shock state, question septic versus cardiogenic-now off pressors -borderline zBP 2. Wide complex tachycardia concerning for a nonsustained ventricular tachycardia, status post cardioversion. 3. Paroxysmal atrial fibrillation-rate controlled 4. Respiratory failure, status post intubation. 5. Coagulopathy secondary to Xarelto-now decreasing 6. Urinary tract infection. 7. Encephalopathy. 8. Hypernatremia. 9. Non-ST elevation myocardial infarction-slowly downtrending cardiac enzymes 10. Anemia. 11. Diabetes mellitus. 12.Bradycardia to high 30's and 40's 14.Acidosis 15.Thrombocytopenia Recc: -Tele -Continue abx's and f/u cx data -Hold heparin drip given low platelets and f/o HIT -Follow HR closely with probable need for reintiation of dopamine/levo -Follow volume status closely Problems: Consultation Date/Type/Reason Admit Date/Time Sep 08, 2016 at 13:10 Initial Consult Date 09/08/16 Type of Consultation: Cardiology Reason for Consultation Nstemi/CHF Referring Provider: ALLYN BERMUDEZ MD Exam/Review of Systems Vital Signs Vitals Vital Signs Date Time Temp Pulse Resp B/P Pulse Ox O2 Delivery O2 Flow Rate FiO2 09/13/16 08:00 59 09/13/16 05:19 21 100 30 09/13/16 03:00 101/60 Mechanical Ventilator 09/13/16 00:00 97.9 Intake and Output 09/12/16 09/12/16 09/13/16 15:00 23:00 07:00 Intake Total 948.73 ml 695 ml 1110 ml Output Total 270 ml 205 ml 395 ml Balance 678.73 ml 490 ml 715 ml Exam Review of Systems: CONSTITUTIONAL: No fevers, chills. PULMONARY: intubated CARDIOVASCULAR: No obvious chest pain/palpitations GASTROINTESTINAL: No nausea/vomiting. GENITOURINARY: No hematuria/dysuria. MUSCULOSKELETAL: No obvious myagias/arthalgias. PSYCHIATRIC: No documented depression. NEUROLOGIC: No weakness Constitutional: other (sedated) Head: normocephalic ENMT: intubated Neck: jvd (9-10 cm water), supple Respiratory: diminished breath sounds (at bases/B) Cardiovascular: irregular rhythm Gastrointestinal: non-tender, soft Musculoskeletal: muscle weakness (generalized) Extremities: edema (trace/B) Neurological: other (sedated) Results Result Diagram: 09/13/16 0330 09/13/16 0330 Results 24 hrs Laboratory Tests Test 09/12/16 12:09 09/12/16 17:53 09/12/16 21:25 09/12/16 22:13 Bedside Glucose 190 170 139 Vancomycin Level Trough 16.5 Test 09/13/16 02:01 09/13/16 03:30 09/13/16 06:18 Bedside Glucose 131 163 Alanine Aminotransferase (ALT/SGPT) 29 Albumin 2.1 L Albumin/Globulin Ratio 0.87 Alkaline Phosphatase 90 Anion Gap 13 Aspartate Amino Transf (AST/SGOT) 17 Basophils # 0.0 Basophils % 0.0 Blood Urea Nitrogen 74 H Calcium Level 7.8 L Carbon Dioxide Level 24 Chloride Level 115 H Creatinine 1.66 H Direct Bilirubin 0.00 Eosinophils # 0.0 Eosinophils % 0.0 Globulin 2.40 Glucose Level 162 Hematocrit 32.4 L Hemoglobin 10.3 L Indirect Bilirubin 1.2 H Lymphocytes # 0.3 L Lymphocytes % 5.7 L Mean Corpuscular Hemoglobin 32.0 Mean Corpuscular Hemoglobin Concent 31.8 L Mean Corpuscular Volume 100.6 Mean Platelet Volume 13.2 H Monocytes # 0.4 Monocytes % 7.3 Neutrophils # 4.8 Neutrophils % 86.3 H Nucleated Red Blood Cells # 0.0 Nucleated Red Blood Cells % 0.0 Platelet Count 30 #L Potassium Level 3.3 L Red Blood Count 3.22 L Red Cell Distribution Width 16.0 H Sodium Level 149 H Total Bilirubin 1.2 Total Protein 4.5 L White Blood Count 5.6 # Medications Medications Current Medications Flumazenil (Romazicon) 0.2 mg Q1M PRN IV BENZODIAZEPINE OVERDOSE; Start at 16:30 Naloxone HCl (Narcan) 0.4 mg Q3M PRN IV DECREASED REPIRATORY RATE; Start at 16:30 Ondansetron HCl (Zofran Inj) 4 mg Q6H PRN IV NAUSEA AND/OR VOMITING; Start 06/15 at 16:30 Nitroglycerin (Nitroglycerin (Sl Tab) 0.4 Mg) 1 tab Q5M PRN SL CHEST PAIN; Start 09/08/16 at 16:30 Acetaminophen (Tylenol Liquid) 650 mg Q6H PRN PO PAIN LEVEL 1-3 OR FEVER Last administered on 09/09/16 09:23; Admin Dose 650 MG; Start 09/08/16 at 16:30 Acetaminophen (Tylenol Tab) 650 mg Q6H PRN PO PAIN LEVEL 1-3 OR FEVER; Start at 16:30 Acetaminophen (Tylenol Supp) 650 mg Q4H PRN [place] PAIN LEVEL 1-3 OR FEVER; Start 09/08/16 at 16:30 Lorazepam (Ativan) 1 mg Q2H PRN IV ANXIETY Last administered on 09/13/16 00:22 ; Admin Dose 1 MG; Start 09/08/16 at 16:30 Docusate Sodium (Colace) 100 mg Q12H PRN PO CONSTIPATION; Start 09/08/16 at 16: 30 Magnesium Hydroxide (Milk Of Mag) 30 ml DAILY PRN PO CONSTIPATION; Start at 16:30 Bisacodyl (Dulcolax) 5 mg DAILY PRN PO CONSTIPATION; Start 09/08/16 at 16:30 Pantoprazole 40 mg 40 mg DAILY@06 IV Last administered on 09/13/16 06:25; Admin Dose 40 MG; Start 09/09/16 at 06:00 Dopamine HCl/ Dextrose 250 ml @ 0 mls/hr Q0M IV Last administered on 09/08/16 18:23; Admin Dose 11.25 MLS/HR; Start 09/08/16 at 16:30 Midazolam HCl (Versed) 50 ml @ 1 mls/hr TITRATE IV Last administered on 21:21; Admin Dose 5 MLS/HR; Start 09/09/16 at 01:00 Hydrocortisone 50 mg 50 mg Q8 IV Last administered on 09/13/16 06:26; Admin Dose 50 MG; Start 09/09/16 at 09:30 Norepinephrine 16 mg/Dextrose 500 ml @ 0 mls/hr TITRATE IV Last administered on 09/10/16 21:10; Admin Dose 22.5 MLS/HR; Start 09/09/16 at 16:00 Dextrose/Sodium Chloride 1,000 ml @ 50 mls/hr Q20H IV Last administered on 04:36; Admin Dose 50 MLS/HR; Start 09/12/16 at 08:00 Piperacillin Sod/ Tazobactam Sod (Zosyn 2.25gm/ 50ml (Pmx)) 50 ml @ 100 mls/hr Q6 IVPB Last administered on 09/13/16 06:26; Admin Dose 100 MLS/HR; Start at 12:00 Mupirocin (Bactroban) 1 applic BID TOP Last administered on 09/13/16 09:00; Admin Dose 1 APPLIC; Start 09/12/16 at 13:30 Insulin Aspart (Novolog Insulin Pen) NOVOLOG *MILD* ALGORI... Q4 SC Last administered on 09/13/16 06:27; Admin Dose 1 UNIT; Start 09/12/16 at 13:00 Miscellaneous Information 1 ea NOTE XX ; Start 09/12/16 at 12:30 Glucose (Glutose) 15 gm Q15M PRN PO DECREASED GLUCOSE; Start 09/12/16 at 12:30 Glucose (Glutose) 22.5 gm Q15M PRN PO DECREASED GLUCOSE; Start 09/12/16 at 12: 30 Dextrose (D50w Syringe) 25 ml Q15M PRN IV DECREASED GLUCOSE; Start 09/12/16 at 12:30 Dextrose (D50w Syringe) 50 ml Q15M PRN IV DECREASED GLUCOSE; Start 09/12/16 at 12:30 Glucagon (Glucagen) 1 mg Q15M PRN IM DECREASED GLUCOSE; Start 09/12/16 at 12:30 Glucose 15 gm 15 gm Q15M PRN BUCCAL DECREASED GLUCOSE; Start 09/12/16 at 12:30 Vancomycin HCl/ Sodium Chloride (Vancocin/NS) 150 ml @ 75 mls/hr Q36H IVPB ; Start 09/14/16 at 11:00 SUNITA THOMAS Sep 13, 2016 11:58
[2016-09-13] MEDS: DOPamine-D5W 1.6 MG/ML 250 ML IV SCH (12:06)
[2016-09-13 16:05] LABS: HEPARIN INDUCED PLATELET AB NEGATIVE (NEGATIVE)
[2016-09-14] VITALS (97 sets, daily range): BP systolic 87–137; BP diastolic 55–99; PULSE 46–86; RESP 8–25
[2016-09-14] MEDS: DEXTROSE 5%-0.45% NACL 1,000 ML IV SCH ×2 (01:07→21:00)
[2016-09-14] MEDS: PIPER-TAZO 2.25 GM (PMX) 50 ML IVPB SCH ×4 (01:11→17:59)
[2016-09-14] MEDS: INSULIN ASPART [NOVOLOG] 3 ML PEN SC SCH ×6 (01:18→21:04)
[2016-09-14] MEDS: ALBUTEROL HFA 8 GM INHALER INH SCH ×6 (01:39→21:23)
[2016-09-14] MEDS: IPRATROPIUM (HFA) 12.9 GM INHALER INH SCH ×6 (01:39→21:22)
[2016-09-14 05:11] LABS: CREATININE 1.48 mg/dl (0.44-1.00)
[2016-09-14] MEDS: PANTOPRAZOLE 40 MG INJ IV SCH (06:00)
[2016-09-14] MEDS: HYDROCORTISONE 100 MG INJ IV SCH ×3 (06:00→21:22)
[2016-09-14] MEDS: DOPamine-D5W 1.6 MG/ML 250 ML IV SCH (08:30)
--- NOTE | 2016-09-14 09:45 | PN ---
Date/Time of Note Date/Time of Note DATE: 09/14/16 TIME: 09:40 Assessment/Plan VTE Prophylaxis VTE Prophylaxis Intervention: SCD's Lines/Catheters IV Catheter Type (from Nrs): Central Line Central line still needed: Yes Urinary Cath still in place: Yes Reason Cath still needed: urinary retention Assessment/Plan Chief Complaint/Hosp Course 1. Acute ventilator-dependent respiratory failure, doing poorly. Per nursing staff there is a who is lacking the transportation to see . 2. Metabolic acidosis. The patient has non- stemi myocardial infarction. 3. Anemia. 4 Pt is on K protocol 5 E. coli sepsis, on dopamin 1.5 mcg/kg/min 6 Thrombocytopenia 7. Acute kidney injury, stable 8. NG tube feeding tolerating well Problems: Assessment/Plan 1. Continue Ventilator support 2. A/b IV 3. Hydration and NG tube feeding 4. Poor prognosis, pt might need mcfp ventilator support Subjective 24 Hr Interval Summary Subjective hx not possible: pt non-verbal Exam/Review of Systems Vital Signs Vitals Vital Signs Date Time Temp Pulse Resp B/P Pulse Ox O2 Delivery O2 Flow Rate FiO2 09/14/16 08:30 121/99 09/14/16 08:15 64 14 100 09/14/16 08:00 97.5 Mechanical Ventilator 09/14/16 05:22 30 Intake and Output 09/13/16 09/13/16 09/14/16 15:00 23:00 07:00 Intake Total 612.46 ml 1338.86 ml 992.64 ml Output Total 1360 ml 390 ml Balance 612.46 ml -21.14 ml 602.64 ml Exam Constitutional: non-verbal, other (lethargic) Head: normocephalic Eyes: nl conjunctiva ENMT: nl external ears & nose Neck: supple Respiratory: diminished breath sounds Cardiovascular: regular rate and rhythm Gastrointestinal: other (NG tube feeding), soft Genitourinary - Female: other (morales) Musculoskeletal: muscle weakness Extremities: normal pulses Results Result Diagram: 09/13/16 0330 09/14/16 0430 Results 24 hrs Laboratory Tests Test 09/13/16 13:25 09/13/16 13:30 09/13/16 17:06 09/13/16 21:35 Digoxin Level < 0.4 L Potassium Level 3.8 Bedside Glucose 236 H 247 H 208 Test 09/14/16 01:05 09/14/16 04:30 09/14/16 05:59 Bedside Glucose 204 243 H Blood Urea Nitrogen 71 H Creatinine 1.48 H Medications Medications Current Medications Flumazenil (Romazicon) 0.2 mg Q1M PRN IV BENZODIAZEPINE OVERDOSE; Start at 16:30 Naloxone HCl (Narcan) 0.4 mg Q3M PRN IV DECREASED REPIRATORY RATE; Start at 16:30 Ondansetron HCl (Zofran Inj) 4 mg Q6H PRN IV NAUSEA AND/OR VOMITING; Start 06/15 at 16:30 Nitroglycerin (Nitroglycerin (Sl Tab) 0.4 Mg) 1 tab Q5M PRN SL CHEST PAIN; Start 09/08/16 at 16:30 Acetaminophen (Tylenol Liquid) 650 mg Q6H PRN PO PAIN LEVEL 1-3 OR FEVER Last administered on 09/09/16 09:23; Admin Dose 650 MG; Start 09/08/16 at 16:30 Acetaminophen (Tylenol Tab) 650 mg Q6H PRN PO PAIN LEVEL 1-3 OR FEVER; Start at 16:30 Acetaminophen (Tylenol Supp) 650 mg Q4H PRN [place] PAIN LEVEL 1-3 OR FEVER; Start 09/08/16 at 16:30 Lorazepam (Ativan) 1 mg Q2H PRN IV ANXIETY Last administered on 09/13/16 00:22 ; Admin Dose 1 MG; Start 09/08/16 at 16:30 Docusate Sodium (Colace) 100 mg Q12H PRN PO CONSTIPATION; Start 09/08/16 at 16: 30 Magnesium Hydroxide (Milk Of Mag) 30 ml DAILY PRN PO CONSTIPATION; Start at 16:30 Bisacodyl (Dulcolax) 5 mg DAILY PRN PO CONSTIPATION; Start 09/08/16 at 16:30 Pantoprazole 40 mg 40 mg DAILY@06 IV Last administered on 09/14/16 06:00; Admin Dose 40 MG; Start 09/09/16 at 06:00 Midazolam HCl (Versed) 50 ml @ 1 mls/hr TITRATE IV Last administered on 21:21; Admin Dose 5 MLS/HR; Start 09/09/16 at 01:00 Hydrocortisone 50 mg 50 mg Q8 IV Last administered on 09/14/16 06:00; Admin Dose 50 MG; Start 09/09/16 at 09:30 Norepinephrine 16 mg/Dextrose 500 ml @ 0 mls/hr TITRATE IV Last administered on 09/10/16 21:10; Admin Dose 22.5 MLS/HR; Start 09/09/16 at 16:00 Dextrose/Sodium Chloride 1,000 ml @ 50 mls/hr Q20H IV Last administered on 01:07; Admin Dose 50 MLS/HR; Start 09/12/16 at 08:00 Piperacillin Sod/ Tazobactam Sod (Zosyn 2.25gm/ 50ml (Pmx)) 50 ml @ 100 mls/hr Q6 IVPB Last administered on 09/14/16 06:00; Admin Dose 100 MLS/HR; Start at 12:00 Mupirocin (Bactroban) 1 applic BID TOP Last administered on 09/13/16 21:36; Admin Dose 1 APPLIC; Start 09/12/16 at 13:30 Insulin Aspart (Novolog Insulin Pen) NOVOLOG *MILD* ALGORI... Q4 SC Last administered on 09/14/16 06:10; Admin Dose 3 UNIT; Start 09/12/16 at 13:00 Miscellaneous Information 1 ea NOTE XX ; Start 09/12/16 at 12:30 Glucose (Glutose) 15 gm Q15M PRN PO DECREASED GLUCOSE; Start 09/12/16 at 12:30 Glucose (Glutose) 22.5 gm Q15M PRN PO DECREASED GLUCOSE; Start 09/12/16 at 12: 30 Dextrose (D50w Syringe) 25 ml Q15M PRN IV DECREASED GLUCOSE; Start 09/12/16 at 12:30 Dextrose (D50w Syringe) 50 ml Q15M PRN IV DECREASED GLUCOSE; Start 09/12/16 at 12:30 Glucagon (Glucagen) 1 mg Q15M PRN IM DECREASED GLUCOSE; Start 09/12/16 at 12:30 Glucose 15 gm 15 gm Q15M PRN BUCCAL DECREASED GLUCOSE; Start 09/12/16 at 12:30 Vancomycin HCl 750 mg/Sodium Chloride 150 ml @ 75 mls/hr Q36H IVPB ; Start 3/ 18/17 at 11:00 Dopamine HCl/ Dextrose 250 ml @ 5.333 mls/ hr TITRATE IV Last administered on 09/14/16t 08:30; Admin Dose 3.999 MLS/HR; Start 09/14/16 at 09:00 DESTINY OCASIO 18, 2017 09:45
[2016-09-14] MEDS: MUPIROCIN 2% 22 GM OINT TOP SCH ×2 (10:06→21:03)
[2016-09-14 11:09] LABS: ALBUMIN 2.2 g/dl (3.3-4.9)
[2016-09-14 11:10] LABS: POTASSIUM 3.2 mmol/L (3.5-5.1)
[2016-09-14 11:12] LABS: ALBUMIN/GLOBULIN RATIO 0.91; BILIRUBIN,INDIRECT 1.1 mg/dl (0-1.1); BILIRUBIN,TOTAL 1.1 mg/dl (0.2-1.3); CREATININE 1.45 mg/dl (0.44-1.00); TOTAL PROTEIN 4.6 g/dl (6.1-8.1)
[2016-09-14 11:13] LABS: CALCIUM 7.8 mg/dl (8.4-10.2)
--- NOTE | 2016-09-14 11:28 | PN ---
DATE: 09/14/2016 SUBJECTIVE: The patient remains intubated, on mechanical ventilation, altered, without sedation. N o spontaneous respiratory effort. PHYSICAL EXAMINATION: VITAL SIGNS: Temperature 97, pulse 68, blood pressure 113/60, O2 saturation 96% on 30% FIO2. NECK: Supple. No JVD or lymphadenopathy. CARDIAC EXAM: S1, S2. No added sounds or murmurs. CHEST: Diminished air entry bilaterally. ABDOMEN: Soft, nontender. No guarding or rebound. EXTREMITIES: No cyanosis or clubbing. 2+ edema. NEUROLOGIC: Generalized weakness. LABORATORY: White count 5.6, hemoglobin 10.3, platelets of 30. BUN 71, creatinine 1.48. Arterial b lood gas is pending at the time of this dictation. IMPRESSION AND PLAN: 1. Hypoxemic respiratory failure. 2. Altered mental status. 3. Non-ST elevation myocardial infarction. 4. Acute kidney injury. PLAN: 1. Continue mechanical ventilation. 2. Continue pulmonary toilet. 3. Continue tube feeding. At this point, unless the patient's neurological status improves, the patient is unlikely to be a ca ndidate for safe extubation. Dictated By: JEREMY GREEN/WILLIAN Conf#: [id number] DID#: [id number]
[2016-09-14] MEDS: POTASSIUM CHLORIDE 50 ML IVPB PRN ×3 (11:46→15:42)
--- NOTE | 2016-09-14 12:44 | CONS ---
Date/Time of Note Date/Time of Note DATE: 09/14/16 TIME: 12:42 Assessment/Plan Assessment/Plan Additional Assessment/Plan 1. Hypotension/shock state, question septic versus cardiogenic-now off pressors -borderline zBP - BP improved, con't to follow 2. Wide complex tachycardia concerning for a nonsustained ventricular tachycardia, status post cardioversion - now in sinus, con't to follow 3. Paroxysmal atrial fibrillation-rate controlled- HR BETTER now 4. Respiratory failure, status post intubation. 5. Coagulopathy secondary to Xarelto-now decreasing 6. Urinary tract infection - on anti-BX, con't MED rx 7. Encephalopathy- no changee 8. Hypernatremia. 9. Non-ST elevation myocardial infarction-slowly downtrending cardiac enzymes 10. Anemia. 11. Diabetes mellitus. 12.Bradycardia to high 30's and 40's 14.Acidosis 15.Thrombocytopenia Consultation Date/Type/Reason Admit Date/Time Sep 08, 2016 at 13:10 Initial Consult Date 09/08/16 Type of Consultation: Cardiology Referring Provider: ALLYN BERMUDEZ MD 24 HR Interval Summary Free Text/Dictation NO acute change - BP stable - in good fluid status - will adjust Rx as needed ROS: No fever, no chills, no nausea, no vomiting, no diarrhea/constipation No recent weight changes No chest pain, no PND, no orthopnea No dizziness, blurred vision No thirst, no heat or cold intolerance Exam/Review of Systems Vital Signs Vitals Vital Signs Date Time Temp Pulse Resp B/P Pulse Ox O2 Delivery O2 Flow Rate FiO2 09/14/16 10:30 68 13 113/74 09/14/16 10:00 100 Mechanical Ventilator 09/14/16 08:00 97.5 09/14/16 08:00 30 Intake and Output 09/13/16 09/13/16 09/14/16 15:00 23:00 07:00 Intake Total 612.46 ml 1338.86 ml 992.64 ml Output Total 1360 ml 390 ml Balance 612.46 ml -21.14 ml 602.64 ml Exam General: WN/WD/NAD, AOx0 HEENT: Unicetric/atraumatic/EOMI (does not follow commands) NECK: JVD elevated, no thyromeg , intub Lymph: no lymphadenopathy HEART: IRregular with no S3, II/ systolic murmur at apex LUNGS: Coarse sounds ABD: soft, NT, ND, +BS : Intact Neuro: non focal SKIN: chronic changes EXT: trace edema Results Result Diagram: 09/13/16 0330 09/14/16 1055 Results 24 hrs Laboratory Tests Test 09/13/16 13:25 09/13/16 13:30 09/13/16 17:06 09/13/16 21:35 Digoxin Level < 0.4 L Potassium Level 3.8 Bedside Glucose 236 H 247 H 208 Test 09/14/16 01:05 09/14/16 04:30 09/14/16 05:59 09/14/16 10:04 Bedside Glucose 204 243 H 215 Blood Urea Nitrogen 71 H Creatinine 1.48 H Test 09/14/16 10:55 Alanine Aminotransferase (ALT/SGPT) 26 Albumin 2.2 L Albumin/Globulin Ratio 0.91 Alkaline Phosphatase 102 Anion Gap 14 Aspartate Amino Transf (AST/SGOT) 17 Blood Urea Nitrogen 70 H Calcium Level 7.8 L Carbon Dioxide Level 26 Chloride Level 112 H Creatinine 1.45 H Direct Bilirubin 0.00 Globulin 2.40 Glucose Level 182 Indirect Bilirubin 1.1 Potassium Level 3.2 L Sodium Level 149 H Total Bilirubin 1.1 Total Protein 4.6 L Medications Medications Current Medications Flumazenil (Romazicon) 0.2 mg Q1M PRN IV BENZODIAZEPINE OVERDOSE; Start at 16:30 Naloxone HCl (Narcan) 0.4 mg Q3M PRN IV DECREASED REPIRATORY RATE; Start at 16:30 Ondansetron HCl (Zofran Inj) 4 mg Q6H PRN IV NAUSEA AND/OR VOMITING; Start 06/15 at 16:30 Nitroglycerin (Nitroglycerin (Sl Tab) 0.4 Mg) 1 tab Q5M PRN SL CHEST PAIN; Start 09/08/16 at 16:30 Acetaminophen (Tylenol Liquid) 650 mg Q6H PRN PO PAIN LEVEL 1-3 OR FEVER Last administered on 09/09/16t 09:23; Admin Dose 650 MG; Start 09/08/16 at 16:30 Acetaminophen (Tylenol Tab) 650 mg Q6H PRN PO PAIN LEVEL 1-3 OR FEVER; Start at 16:30 Acetaminophen (Tylenol Supp) 650 mg Q4H PRN [place] PAIN LEVEL 1-3 OR FEVER; Start 09/08/16 at 16:30 Lorazepam (Ativan) 1 mg Q2H PRN IV ANXIETY Last administered on 09/13/16 00:22 ; Admin Dose 1 MG; Start 09/08/16 at 16:30 Docusate Sodium (Colace) 100 mg Q12H PRN PO CONSTIPATION; Start 09/08/16 at 16: 30 Magnesium Hydroxide (Milk Of Mag) 30 ml DAILY PRN PO CONSTIPATION; Start at 16:30 Bisacodyl (Dulcolax) 5 mg DAILY PRN PO CONSTIPATION; Start 09/08/16 at 16:30 Pantoprazole 40 mg 40 mg DAILY@06 IV Last administered on 09/14/16 06:00; Admin Dose 40 MG; Start 09/09/16 at 06:00 Midazolam HCl (Versed) 50 ml @ 1 mls/hr TITRATE IV Last administered on 21:21; Admin Dose 5 MLS/HR; Start 09/09/16 at 01:00 Hydrocortisone 50 mg 50 mg Q8 IV Last administered on 09/14/16 06:00; Admin Dose 50 MG; Start 09/09/16 at 09:30 Norepinephrine 16 mg/Dextrose 500 ml @ 0 mls/hr TITRATE IV Last administered on 09/10/16 21:10; Admin Dose 22.5 MLS/HR; Start 09/09/16 at 16:00 Dextrose/Sodium Chloride 1,000 ml @ 50 mls/hr Q20H IV Last administered on 01:07; Admin Dose 50 MLS/HR; Start 09/12/16 at 08:00 Piperacillin Sod/ Tazobactam Sod (Zosyn 2.25gm/ 50ml (Pmx)) 50 ml @ 100 mls/hr Q6 IVPB Last administered on 09/14/16 11:45; Admin Dose 100 MLS/HR; Start at 12:00 Mupirocin (Bactroban) 1 applic BID TOP Last administered on 09/14/16 10:06; Admin Dose 1 APPLIC; Start 09/12/16 at 13:30 Insulin Aspart (Novolog Insulin Pen) NOVOLOG *MILD* ALGORI... Q4 SC Last administered on 09/14/16 10:08; Admin Dose 2 UNIT; Start 09/12/16 at 13:00 Miscellaneous Information 1 ea NOTE XX ; Start 09/12/16 at 12:30 Glucose (Glutose) 15 gm Q15M PRN PO DECREASED GLUCOSE; Start 09/12/16 at 12:30 Glucose (Glutose) 22.5 gm Q15M PRN PO DECREASED GLUCOSE; Start 09/12/16 at 12: 30 Dextrose (D50w Syringe) 25 ml Q15M PRN IV DECREASED GLUCOSE; Start 09/12/16 at 12:30 Dextrose (D50w Syringe) 50 ml Q15M PRN IV DECREASED GLUCOSE; Start 09/12/16 at 12:30 Glucagon (Glucagen) 1 mg Q15M PRN IM DECREASED GLUCOSE; Start 09/12/16 at 12:30 Glucose 15 gm 15 gm Q15M PRN BUCCAL DECREASED GLUCOSE; Start 09/12/16 at 12:30 Vancomycin HCl 750 mg/Sodium Chloride 150 ml @ 75 mls/hr Q36H IVPB ; Start at 11:00 Dopamine HCl/ Dextrose 250 ml @ 5.333 mls/ hr TITRATE IV Last administered on 09/14/16 08:30; Admin Dose 3.999 MLS/HR; Start 09/14/16 at 09:00 SHAHZAD TILLEY MD Sep 14, 2016 12:44
[2016-09-14] MEDS: VANCOMYCIN 750 MG in SOD CHLORIDE 0.9% 150 ML IVPB SCH (12:58)
[2016-09-14] MEDS: LORAZEPAM 2 MG INJ IV PRN (22:04)
[2016-09-15] VITALS (61 sets, daily range): BP systolic 87–132; BP diastolic 54–90; PULSE 53–72; RESP 13–22
[2016-09-15] MEDS: PIPER-TAZO 2.25 GM (PMX) 50 ML IVPB SCH ×4 (00:10→17:35)
[2016-09-15] MEDS: INSULIN ASPART [NOVOLOG] 3 ML PEN SC SCH ×6 (00:15→20:49)
[2016-09-15] MEDS: IPRATROPIUM (HFA) 12.9 GM INHALER INH SCH ×5 (01:20→19:19)
[2016-09-15] MEDS: ALBUTEROL HFA 8 GM INHALER INH SCH ×5 (01:20→19:19)
[2016-09-15] MEDS: LORAZEPAM 2 MG INJ IV PRN (01:49)
[2016-09-15 04:37] LABS: ADD SCAN DIFF NO
[2016-09-15 04:46] LABS: ABNORMAL IP MESSAGE 1; BASOPHILS % 0.1 % (0.0-2.0); HEMATOCRIT 33.3 % (37.0-47.0); HEMOGLOBIN 10.7 g/dl (12.0-16.0); LYMPHOCYTES # 0.3 10^3/ul (0.8-2.9); LYMPHOCYTES % 3.4 % (15.0-51.0); MEAN CORPUSCULAR HEMOGLOBIN 31.9 pg (29.0-33.0); MEAN CORPUSCULAR HGB CONC 32.1 g/dl (32.0-37.0); MEAN CORPUSCULAR VOLUME 99.4 fl (82.0-101.0); MEAN PLATELET VOLUME 14.3 fl (7.4-10.4); MONOCYTE # 0.4 10^3/ul (0.3-0.9); MONOCYTES % 4.9 % (0.0-11.0); NEUTROPHIL # 7.9 10^3/ul (1.6-7.5); PLATELET COUNT 43 10^3/UL (140-415); RED BLOOD COUNT 3.35 10^6/ul (4.20-5.40); RED CELL DISTRIBUTION WIDTH 15.6 % (11.5-14.5); WHITE BLOOD COUNT 8.7 10^3/ul (4.8-10.8)
[2016-09-15 05:02] LABS: ALBUMIN 2.1 g/dl (3.3-4.9); POTASSIUM 3.4 mmol/L (3.5-5.1)
[2016-09-15 05:03] LABS: POTASSIUM 3.4 mmol/L (3.5-5.1)
[2016-09-15 05:04] LABS: CREATININE 1.34 mg/dl (0.44-1.00)
[2016-09-15 05:05] LABS: ALBUMIN/GLOBULIN RATIO 0.91; CALCIUM 7.6 mg/dl (8.4-10.2); TOTAL PROTEIN 4.4 g/dl (6.1-8.1)
[2016-09-15 05:06] LABS: CREATININE 1.42 mg/dl (0.44-1.00)
[2016-09-15 05:07] LABS: CALCIUM 7.8 mg/dl (8.4-10.2); MAGNESIUM 2.3 mg/dl (1.7-2.5); PHOSPHORUS 3.1 mg/dl (2.5-4.9)
[2016-09-15] MEDS: POTASSIUM CHLORIDE 50 ML IVPB PRN ×2 (05:29→06:45)
[2016-09-15] MEDS: PANTOPRAZOLE 40 MG INJ IV SCH (05:34)
[2016-09-15] MEDS: HYDROCORTISONE 100 MG INJ IV SCH ×3 (05:34→21:14)
[2016-09-15] MEDS: MUPIROCIN 2% 22 GM OINT TOP SCH ×2 (09:02→20:45)
--- NOTE | 2016-09-15 10:19 | RADRPT ---
PROCEDURE: XR Chest. CLINICAL INDICATION: 86-year-old female with pneumonia/CHF. TECHNIQUE: Single frontal view of the chest was obtained COMPARISON: Chest x-ray 09/12/2016. FINDINGS: The soft tissues are normal. Degenerative osteophytes are present in the thoracic spine. The the h eart is enlarged. The cardiomediastinal silhouette and hilar structures are normal. Pulmonary vascu lature is increased. There are asymmetric pulmonary infiltrates in the perihilar areas or extensive in the right lung than left. There are bilateral pleural effusions. The small bore central venous catheter, endotracheal tube and NG tube remain in good position. IMPRESSION: 1. Cardiomegaly with asymmetric interstitial infiltrates suspicious for pulmonary edema likely the r esult of CHF. The asymmetric interstitial infiltrates in the right lung appear slightly worse compar ed to 09/12/2016. 2. Bilateral pleural effusions. 3. Satisfactory positioning of the small bore central venous catheter in the superior vena cava, en dotracheal tube 2 cm superior to the raf and NG tube with its tip distal to the GE junction. RPTAT:AAJJ Physician Eleuterio Date Time Electronically viewed and signed by Physician Eleuterio on 09/15/2016 10:19 JM/
[2016-09-15] MEDS ORDERED: FUROSEMIDE 20 MG INJ IV SCH (10:30)
--- NOTE | 2016-09-15 11:47 | PN ---
DATE: 09/15/2016 SUBJECTIVE: The patient remains stable this morning, intubated on mechanical ventilation. She is s omewhat more alert, opens eyes, but not following commands, currently not requiring vasopressors. OBJECTIVE: VITAL SIGNS: Temperature 98, pulse is 62, blood pressure 105/72, O2 saturation 96% on 40% FIO2. HEENT: Dry mucous membranes. Pupils equal and reactive to light. CARDIAC: S1, S2, no added sounds or murmurs. CHEST: Diminished air entry bilaterally. ABDOMEN: Soft, nontender. No guarding or rebound. EXTREMITIES: No cyanosis, clubbing, 1+ edema. NEUROLOGIC: Generalized weakness. LABORATORY DATA: White count 8.7, hemoglobin 10.7, platelets of 43. BUN 68, creatinine 1.34. Dalila rial blood gas pending at time of this dictation. IMAGING: Chest x-ray shows ongoing moderate right pleural effusions. IMPRESSION AND PLAN: 1. Hypoxemic respiratory failure. 2. Pleural effusions, right greater than left. 3. Encephalopathy, toxic metabolic. 4. Dysphagia. 5. Thrombocytopenia. 6. Paroxysmal atrial fibrillation. PLAN: 1. Continue mechanical ventilation. 2. Hold sedation pending improvement in neurological status. 3. Possible right thoracentesis. 4. Transfusion of platelets prior to thoracentesis. 5. Tube feeding as tolerated. 6. Family conference regarding goals of care as the patient may not be safely extubated. Critical care time was 40 minutes. Dictated By: JEREMY GREEN/WILLIAN Conf#: [id number] DID#: [id number]
--- NOTE | 2016-09-15 16:00 | PN ---
Date/Time of Note Date/Time of Note DATE: 09/15/16 TIME: 15:58 Assessment/Plan VTE Prophylaxis VTE Prophylaxis Intervention: other Lines/Catheters IV Catheter Type (from Nrsg): Central Line Central line still needed: Yes Urinary Cath still in place: Yes Reason Cath still needed: other (indicate) Assessment/Plan Chief Complaint/Hosp Course IMPRESSION: 1. Acute ventilator-dependent respiratory failure, severe sepsis. The patient has acute kidney injury, hypernatremia, free water deficit. 2. Metabolic acidosis. The patient has nstemi myocardial infarction. 3. Anemia. 4 hypokalemia 5 ecolisepsis 6 thrombocytopeni7 pul edema plan antibiotic kcl per cardio lasix Problems: Subjective 24 Hr Interval Summary Subjective hx not possible: other (on vent) Exam/Review of Systems Vital Signs Vitals Vital Signs Date Time Temp Pulse Resp B/P Pulse Ox O2 Delivery O2 Flow Rate FiO2 09/15/16 13:00 63 14 108/71 100 Mechanical Ventilator 09/15/16 12:00 97.1 09/15/16 11:30 30 Intake and Output 09/14/16 09/14/16 09/15/16 15:00 23:00 07:00 Intake Total 949.158 ml 884.966 ml 970 ml Output Total 270 ml 425 ml 185 ml Balance 679.158 ml 459.966 ml 785 ml Exam Neck: supple Respiratory: diminished breath sounds Cardiovascular: regular rate and rhythm Gastrointestinal: soft Musculoskeletal: nl extremities to inspection Results Result Diagram: 09/15/16 0415 09/15/16 0415 Results 24 hrs Laboratory Tests Test 09/14/16 18:05 09/14/16 21:02 09/15/16 00:11 09/15/16 04:15 Bedside Glucose 147 207 181 Alanine Aminotransferase (ALT/SGPT) 27 Albumin 2.1 L Albumin/Globulin Ratio 0.91 Alkaline Phosphatase 102 Anion Gap 14 Aspartate Amino Transf (AST/SGOT) 18 Basophils # 0.0 Basophils % 0.1 Blood Urea Nitrogen 68 H Calcium Level 7.6 L Carbon Dioxide Level 24 Chloride Level 111 H Creatinine 1.34 H Direct Bilirubin 0.00 Eosinophils # 0.0 Eosinophils % 0.0 Globulin 2.30 Glucose Level 168 Hematocrit 33.3 L Hemoglobin 10.7 L Indirect Bilirubin 1.0 Lymphocytes # 0.3 L Lymphocytes % 3.4 L Magnesium Level 2.3 Mean Corpuscular Hemoglobin 31.9 Mean Corpuscular Hemoglobin Concent 32.1 Mean Corpuscular Volume 99.4 Mean Platelet Volume 14.3 H Monocytes # 0.4 Monocytes % 4.9 Neutrophils # 7.9 H Neutrophils % 91.0 H Nucleated Red Blood Cells # 0.0 Nucleated Red Blood Cells % 0.0 Phosphorus Level 3.1 Platelet Count 43 #L Potassium Level 3.4 L Red Blood Count 3.35 L Red Cell Distribution Width 15.6 H Sodium Level 146 H Total Bilirubin 1.0 Total Protein 4.4 L White Blood Count 8.7 # Test 09/15/16 05:36 09/15/16 08:39 09/15/16 12:42 Bedside Glucose 206 214 207 Medications Medications Current Medications Flumazenil (Romazicon) 0.2 mg Q1M PRN IV BENZODIAZEPINE OVERDOSE; Start at 16:30 Naloxone HCl (Narcan) 0.4 mg Q3M PRN IV DECREASED REPIRATORY RATE; Start at 16:30 Ondansetron HCl (Zofran Inj) 4 mg Q6H PRN IV NAUSEA AND/OR VOMITING; Start 06/15 at 16:30 Nitroglycerin (Nitroglycerin (Sl Tab) 0.4 Mg) 1 tab Q5M PRN SL CHEST PAIN; Start 09/08/16 at 16:30 Acetaminophen (Tylenol Liquid) 650 mg Q6H PRN PO PAIN LEVEL 1-3 OR FEVER Last administered on 09/09/16 09:23; Admin Dose 650 MG; Start 09/08/16 at 16:30 Acetaminophen (Tylenol Tab) 650 mg Q6H PRN PO PAIN LEVEL 1-3 OR FEVER; Start at 16:30 Acetaminophen (Tylenol Supp) 650 mg Q4H PRN [place] PAIN LEVEL 1-3 OR FEVER; Start 09/08/16 at 16:30 Lorazepam (Ativan) 1 mg Q2H PRN IV ANXIETY Last administered on 09/15/16 01:49 ; Admin Dose 1 MG; Start 09/08/16 at 16:30 Docusate Sodium (Colace) 100 mg Q12H PRN PO CONSTIPATION; Start 09/08/16 at 16: 30 Magnesium Hydroxide (Milk Of Mag) 30 ml DAILY PRN PO CONSTIPATION; Start at 16:30 Bisacodyl (Dulcolax) 5 mg DAILY PRN PO CONSTIPATION; Start 09/08/16 at 16:30 Pantoprazole 40 mg 40 mg DAILY@06 IV Last administered on 09/15/16 05:34; Admin Dose 40 MG; Start 09/09/16 at 06:00 Midazolam HCl (Versed) 50 ml @ 1 mls/hr TITRATE IV Last administered on 21:21; Admin Dose 5 MLS/HR; Start 09/09/16 at 01:00 Hydrocortisone 50 mg 50 mg Q8 IV Last administered on 09/15/16 13:29; Admin Dose 50 MG; Start 09/09/16 at 09:30 Norepinephrine 16 mg/Dextrose 500 ml @ 0 mls/hr TITRATE IV Last administered on 09/10/16 21:10; Admin Dose 22.5 MLS/HR; Start 09/09/16 at 16:00 Dextrose/Sodium Chloride 1,000 ml @ 20 mls/hr Q24H IV Last administered on 21:00; Admin Dose 50 MLS/HR; Start 09/12/16 at 08:00 Piperacillin Sod/ Tazobactam Sod (Zosyn 2.25gm/ 50ml (Pmx)) 50 ml @ 100 mls/hr Q6 IVPB Last administered on 09/15/16 11:23; Admin Dose 100 MLS/HR; Start at 12:00 Mupirocin (Bactroban) 1 applic BID TOP Last administered on 09/15/16 09:02; Admin Dose 1 APPLIC; Start 09/12/16 at 13:30 Insulin Aspart (Novolog Insulin Pen) NOVOLOG *MILD* ALGORI... Q4 SC Last administered on 09/15/16 12:55; Admin Dose 2 UNIT; Start 09/12/16 at 13:00 Miscellaneous Information 1 ea NOTE XX ; Start 09/12/16 at 12:30 Glucose (Glutose) 15 gm Q15M PRN PO DECREASED GLUCOSE; Start 09/12/16 at 12:30 Glucose (Glutose) 22.5 gm Q15M PRN PO DECREASED GLUCOSE; Start 09/12/16 at 12: 30 Dextrose (D50w Syringe) 25 ml Q15M PRN IV DECREASED GLUCOSE; Start 09/12/16 at 12:30 Dextrose (D50w Syringe) 50 ml Q15M PRN IV DECREASED GLUCOSE; Start 09/12/16 at 12:30 Glucagon (Glucagen) 1 mg Q15M PRN IM DECREASED GLUCOSE; Start 09/12/16 at 12:30 Glucose 15 gm 15 gm Q15M PRN BUCCAL DECREASED GLUCOSE; Start 09/12/16 at 12:30 Vancomycin HCl 750 mg/Sodium Chloride 150 ml @ 75 mls/hr Q36H IVPB Last administered on 09/14/16 12:58; Admin Dose 75 MLS/HR; Start 09/14/16 at 11:00 Dopamine HCl/ Dextrose 250 ml @ 5.333 mls/ hr TITRATE IV Last administered on 09/14/16 08:30; Admin Dose 3.999 MLS/HR; Start 09/14/16 at 09:00 ALLYN BERMUDEZ MD Sep 15, 2016 15:59
[2016-09-15] MEDS: POTASSIUM CHLORIDE (SR) 20 MEQ TAB PO SCH ×2 (16:14→20:38)
--- NOTE | 2016-09-15 17:33 | CONS ---
Date/Time of Note Date/Time of Note DATE: 09/15/16 TIME: 17:31 Assessment/Plan Assessment/Plan Additional Assessment/Plan 1. Hypotension/shock state, question septic versus cardiogenic-now off pressors -borderline zBP - BP improved, con't to follow- BP satble - poor urine output - spot lasix given 2. Wide complex tachycardia concerning for a nonsustained ventricular tachycardia, status post cardioversion - now in sinus, con't to follow 3. Paroxysmal atrial fibrillation-rate controlled- HR BETTER now 4. Respiratory failure, status post intubation- con't resp Rx. 5. Coagulopathy secondary to Xarelto-now decreasing 6. Urinary tract infection - on anti-BX, con't MED rx 7. Encephalopathy- no change 8. Hypernatremia- better now 9. Non-ST elevation myocardial infarction-slowly downtrending cardiac enzymes 10. Anemia. 11. Diabetes mellitus. 12.Bradycardia to high 30's and 40's 14.Acidosis 15.Thrombocytopenia Consultation Date/Type/Reason Admit Date/Time Sep 08, 2016 at 13:10 Initial Consult Date 09/08/16 Type of Consultation: Cardiology Referring Provider: ALLYN BERMUDEZ MD 24 HR Interval Summary Free Text/Dictation NO acute change - mild response to Lasix. BP stable - occ PVCs ROS: No fever, no chills, no nausea, no vomiting, no diarrhea/constipation No recent weight changes No chest pain, no PND, no orthopnea No dizziness, blurred vision No thirst, no heat or cold intolerance (per nurse) Exam/Review of Systems Vital Signs Vitals Vital Signs Date Time Temp Pulse Resp B/P Pulse Ox O2 Delivery O2 Flow Rate FiO2 09/15/16 16:00 59 09/15/16 13:00 14 108/71 100 Mechanical Ventilator 09/15/16 12:00 97.1 09/15/16 11:30 30 Intake and Output 09/14/16 09/14/16 09/15/16 15:00 23:00 07:00 Intake Total 949.158 ml 884.966 ml 970 ml Output Total 270 ml 425 ml 185 ml Balance 679.158 ml 459.966 ml 785 ml Exam General: WN/WD/NAD, AOx o - more arausable HEENT: Unicetric/atraumatic/EOMI (does not follow commands) NECK: JVD elevated, no thyromegaly, intub Lymph: no lymphadenopathy HEART: regular with no S3, II/ systolic murmur at apex LUNGS: Coarse sounds ABD: soft, NT, ND, +BS : Intact Neuro: non focal SKIN: chronic changes EXT: trace edema Results Result Diagram: 09/15/16 0415 09/15/16 0415 Results 24 hrs Laboratory Tests Test 09/14/16 18:05 09/14/16 21:02 09/15/16 00:11 09/15/16 04:15 Bedside Glucose 147 207 181 Alanine Aminotransferase (ALT/SGPT) 27 Albumin 2.1 L Albumin/Globulin Ratio 0.91 Alkaline Phosphatase 102 Anion Gap 14 Aspartate Amino Transf (AST/SGOT) 18 Basophils # 0.0 Basophils % 0.1 Blood Urea Nitrogen 68 H Calcium Level 7.6 L Carbon Dioxide Level 24 Chloride Level 111 H Creatinine 1.34 H Direct Bilirubin 0.00 Eosinophils # 0.0 Eosinophils % 0.0 Globulin 2.30 Glucose Level 168 Hematocrit 33.3 L Hemoglobin 10.7 L Indirect Bilirubin 1.0 Lymphocytes # 0.3 L Lymphocytes % 3.4 L Magnesium Level 2.3 Mean Corpuscular Hemoglobin 31.9 Mean Corpuscular Hemoglobin Concent 32.1 Mean Corpuscular Volume 99.4 Mean Platelet Volume 14.3 H Monocytes # 0.4 Monocytes % 4.9 Neutrophils # 7.9 H Neutrophils % 91.0 H Nucleated Red Blood Cells # 0.0 Nucleated Red Blood Cells % 0.0 Phosphorus Level 3.1 Platelet Count 43 #L Potassium Level 3.4 L Red Blood Count 3.35 L Red Cell Distribution Width 15.6 H Sodium Level 146 H Total Bilirubin 1.0 Total Protein 4.4 L White Blood Count 8.7 # Test 09/15/16 05:36 09/15/16 08:39 09/15/16 12:42 09/15/16 16:10 Bedside Glucose 206 214 207 187 Medications Medications Current Medications Flumazenil (Romazicon) 0.2 mg Q1M PRN IV BENZODIAZEPINE OVERDOSE; Start at 16:30 Naloxone HCl (Narcan) 0.4 mg Q3M PRN IV DECREASED REPIRATORY RATE; Start at 16:30 Ondansetron HCl (Zofran Inj) 4 mg Q6H PRN IV NAUSEA AND/OR VOMITING; Start 06/15 at 16:30 Nitroglycerin (Nitroglycerin (Sl Tab) 0.4 Mg) 1 tab Q5M PRN SL CHEST PAIN; Start 09/08/16 at 16:30 Acetaminophen (Tylenol Liquid) 650 mg Q6H PRN PO PAIN LEVEL 1-3 OR FEVER Last administered on 09/09/16 09:23; Admin Dose 650 MG; Start 09/08/16 at 16:30 Acetaminophen (Tylenol Tab) 650 mg Q6H PRN PO PAIN LEVEL 1-3 OR FEVER; Start at 16:30 Acetaminophen (Tylenol Supp) 650 mg Q4H PRN [place] PAIN LEVEL 1-3 OR FEVER; Start 09/08/16 at 16:30 Lorazepam (Ativan) 1 mg Q2H PRN IV ANXIETY Last administered on 09/15/16 01:49 ; Admin Dose 1 MG; Start 09/08/16 at 16:30 Docusate Sodium (Colace) 100 mg Q12H PRN PO CONSTIPATION; Start 09/08/16 at 16: 30 Magnesium Hydroxide (Milk Of Mag) 30 ml DAILY PRN PO CONSTIPATION; Start at 16:30 Bisacodyl (Dulcolax) 5 mg DAILY PRN PO CONSTIPATION; Start 09/08/16 at 16:30 Pantoprazole 40 mg 40 mg DAILY@06 IV Last administered on 09/15/16 05:34; Admin Dose 40 MG; Start 09/09/16 at 06:00 Midazolam HCl (Versed) 50 ml @ 1 mls/hr TITRATE IV Last administered on 21:21; Admin Dose 5 MLS/HR; Start 09/09/16 at 01:00 Hydrocortisone 50 mg 50 mg Q8 IV Last administered on 09/15/16 13:29; Admin Dose 50 MG; Start 09/09/16 at 09:30 Norepinephrine 16 mg/Dextrose 500 ml @ 0 mls/hr TITRATE IV Last administered on 09/10/16 21:10; Admin Dose 22.5 MLS/HR; Start 09/09/16 at 16:00 Dextrose/Sodium Chloride 1,000 ml @ 20 mls/hr Q24H IV Last administered on 21:00; Admin Dose 50 MLS/HR; Start 09/12/16 at 08:00 Piperacillin Sod/ Tazobactam Sod (Zosyn 2.25gm/ 50ml (Pmx)) 50 ml @ 100 mls/hr Q6 IVPB Last administered on 09/15/16 11:23; Admin Dose 100 MLS/HR; Start at 12:00 Mupirocin (Bactroban) 1 applic BID TOP Last administered on 09/15/16 09:02; Admin Dose 1 APPLIC; Start 09/12/16 at 13:30 Insulin Aspart (Novolog Insulin Pen) NOVOLOG *MILD* ALGORI... Q4 SC Last administered on 09/15/16 16:16; Admin Dose 2 UNIT; Start 09/12/16 at 13:00 Miscellaneous Information 1 ea NOTE XX ; Start 09/12/16 at 12:30 Glucose (Glutose) 15 gm Q15M PRN PO DECREASED GLUCOSE; Start 09/12/16 at 12:30 Glucose (Glutose) 22.5 gm Q15M PRN PO DECREASED GLUCOSE; Start 09/12/16 at 12: 30 Dextrose (D50w Syringe) 25 ml Q15M PRN IV DECREASED GLUCOSE; Start 09/12/16 at 12:30 Dextrose (D50w Syringe) 50 ml Q15M PRN IV DECREASED GLUCOSE; Start 09/12/16 at 12:30 Glucagon (Glucagen) 1 mg Q15M PRN IM DECREASED GLUCOSE; Start 09/12/16 at 12:30 Glucose 15 gm 15 gm Q15M PRN BUCCAL DECREASED GLUCOSE; Start 09/12/16 at 12:30 Vancomycin HCl 750 mg/Sodium Chloride 150 ml @ 75 mls/hr Q36H IVPB Last administered on 09/14/16 12:58; Admin Dose 75 MLS/HR; Start 09/14/16 at 11:00 Dopamine HCl/ Dextrose 250 ml @ 5.333 mls/ hr TITRATE IV Last administered on 09/14/16 08:30; Admin Dose 3.999 MLS/HR; Start 09/14/16 at 09:00 Potassium Chloride (Klor-Con 20) 20 meq BID PO Last administered on 09/15/16 16:14; Admin Dose 20 MEQ; Start 09/15/16 at 16:00 Furosemide (Lasix) 20 mg DAILY IV ; Start 09/16/16 at 09:00 SHAHZAD TILLEY MD Sep 15, 2016 17:33
[2016-09-15] MEDS: DEXTROSE 5%-0.45% NACL 1,000 ML IV SCH (21:15)
[2016-09-15] MEDS: VANCOMYCIN 750 MG in SOD CHLORIDE 0.9% 150 ML IVPB SCH (22:30)
[2016-09-16] VITALS (78 sets, daily range): BP systolic 37–138; BP diastolic 12–93; PULSE 16–116; RESP 10–34
[2016-09-16] MEDS: INSULIN ASPART [NOVOLOG] 3 ML PEN SC SCH ×5 (00:23→15:53)
[2016-09-16] MEDS: IPRATROPIUM (HFA) 12.9 GM INHALER INH SCH ×3 (01:28→13:42)
[2016-09-16] MEDS: ALBUTEROL HFA 8 GM INHALER INH SCH ×3 (01:28→13:42)
[2016-09-16 05:03] LABS: ADD SCAN DIFF NO
[2016-09-16 05:06] LABS: ABNORMAL IP MESSAGE 1; BASOPHILS % 0.1 % (0.0-2.0); HEMATOCRIT 33.4 % (37.0-47.0); HEMOGLOBIN 10.6 g/dl (12.0-16.0); LYMPHOCYTES # 0.3 10^3/ul (0.8-2.9); LYMPHOCYTES % 3.5 % (15.0-51.0); MEAN CORPUSCULAR HEMOGLOBIN 31.6 pg (29.0-33.0); MEAN CORPUSCULAR HGB CONC 31.7 g/dl (32.0-37.0); MEAN CORPUSCULAR VOLUME 99.7 fl (82.0-101.0); MEAN PLATELET VOLUME 14.7 fl (7.4-10.4); MONOCYTE # 0.4 10^3/ul (0.3-0.9); MONOCYTES % 4.7 % (0.0-11.0); NEUTROPHIL # 8.3 10^3/ul (1.6-7.5); NEUTROPHILS % 90.5 % (39.0-77.0); PLATELET COUNT 52 10^3/UL (140-415); RED BLOOD COUNT 3.35 10^6/ul (4.20-5.40); RED CELL DISTRIBUTION WIDTH 15.5 % (11.5-14.5); WHITE BLOOD COUNT 9.2 10^3/ul (4.8-10.8)
[2016-09-16 05:28] LABS: POTASSIUM 3.7 mmol/L (3.5-5.1)
[2016-09-16 05:30] LABS: CREATININE 1.29 mg/dl (0.44-1.00)
[2016-09-16 05:31] LABS: CALCIUM 7.7 mg/dl (8.4-10.2); MAGNESIUM 2.4 mg/dl (1.7-2.5); PHOSPHORUS 3.1 mg/dl (2.5-4.9)
[2016-09-16] MEDS: PANTOPRAZOLE 40 MG INJ IV SCH (05:37)
[2016-09-16] MEDS: HYDROCORTISONE 100 MG INJ IV SCH ×2 (05:37→13:09)
[2016-09-16] MEDS: PIPER-TAZO 2.25 GM (PMX) 50 ML IVPB SCH ×4 (05:37→18:00)
[2016-09-16] MEDS: POTASSIUM CHLORIDE 50 ML IVPB PRN (06:14)
--- NOTE | 2016-09-16 06:25 | RADRPT ---
PROCEDURE: XR Chest. CLINICAL INDICATION: Respiratory failure TECHNIQUE: An AP view of the chest was obtained. COMPARISON: Chest x-ray dated 09/15/2016 FINDINGS: The endotracheal tube tip is approximately 2.2 cm above the raf. The tip of the enteric tube ex tends below the left diaphragm. There is a right subclavian central venous catheter with tip near th e cavoatrial junction. There is prominence of the interstitial and central pulmonary vascular markings with small bilatera l pleural effusions. No focal airspace opacification or pneumothorax is seen. The cardiomediastin al silhouette is moderately enlarged. Calcifications are seen within the aortic arch. The osseous s tructures demonstrate senescent changes. IMPRESSION: 1. Findings suggestive of pulmonary vascular congestion with small bilateral pleural effusions. Fi ndings are unchanged to mildly improved when compared to the prior examination. 2. Moderate cardiomegaly and aortic atherosclerosis. 3. Tubes and lines, as described above. RPTAT: HH .Kamille Bob MD, MD Date Time Electronically viewed and signed by .Kamille Bob MD, on 09/16/2016 06:25 .G/
[2016-09-16] MEDS ORDERED: EPINEPHrine 0.1 MG/ML SYG ONE (07:00)
[2016-09-16] MEDS: DOPamine-D5W 1.6 MG/ML 250 ML IV SCH (07:11)
[2016-09-16] MEDS: POTASSIUM CHLORIDE (SR) 20 MEQ TAB PO SCH (08:39)
[2016-09-16] MEDS: MUPIROCIN 2% 22 GM OINT TOP SCH (08:42)
[2016-09-16] MEDS ORDERED: FUROSEMIDE 20 MG INJ IV SCH (09:00)
--- NOTE | 2016-09-16 09:53 | CONS ---
Date/Time of Note Date/Time of Note DATE: 09/16/16 TIME: 09:47 Assessment/Plan Assessment/Plan Chief Complaint/Hosp Course IMPRESSION: 1. Hypotension/shock state, likley septic and now back on pressors 2. Wide complex tachycardia concerning for a nonsustained ventricular tachycardia, status post cardioversion. 3. Paroxysmal atrial fibrillation-rate controlled 4. Respiratory failure, status post intubation. 5. Coagulopathy secondary to Xarelto-now decreasing 6. Urinary tract infection. 7. Encephalopathy. 8. Hypernatremia. 9. Non-ST elevation myocardial infarction-slowly downtrending cardiac enzymes 10. Anemia. 11. Diabetes mellitus. 12.Bradycardia to high 30's and 40's-recurrent and now on dopamine low dose 14.Acidosis 15.Thrombocytopenia Recc: -Tele -Continue abx's and f/u cx data -Not on aspirin or systemic anti-coag secondary to low platelets -Wean low dose dopamine as tolerated -Follow volume status closely on gentl lasix diuresis Problems: Consultation Date/Type/Reason Admit Date/Time Sep 08, 2016 at 13:10 Initial Consult Date 09/08/16 Type of Consultation: Cardiology Reason for Consultation shock/AF Referring Provider: ALLYN BERMUDEZ MD Exam/Review of Systems Vital Signs Vitals Vital Signs Date Time Temp Pulse Resp B/P Pulse Ox O2 Delivery O2 Flow Rate FiO2 09/16/16 09:08 75 14 100 30 09/16/16 09:00 92/71 Mechanical Ventilator 09/16/16 08:00 97.7 Intake and Output 09/15/16 09/15/16 09/16/16 15:00 23:00 07:00 Intake Total 500 ml 530 ml 855 ml Output Total 455 ml 285 ml 300 ml Balance 45 ml 245 ml 555 ml Exam Review of Systems: CONSTITUTIONAL: No fevers, chills. PULMONARY: intubated CARDIOVASCULAR: No obvioua chest pain/palpitations GASTROINTESTINAL: No nausea/vomiting. GENITOURINARY: No hematuria/dysuria. MUSCULOSKELETAL: No obvious myagias/arthalgias. PSYCHIATRIC: No documented depression. NEUROLOGIC: No weakness Constitutional: alert, oriented Psych: no complaints Eyes: nl conjunctiva ENMT: mucosa pink and moist Neck: jvd (9 cm water), supple Respiratory: diminished breath sounds (at bases/B) Cardiovascular: irregular rhythm Gastrointestinal: non-tender, soft Musculoskeletal: muscle tone (normal) Extremities: edema (none) Neurological: other (No focal deficits) Results Result Diagram: 09/16/16 0430 09/16/16 0430 Results 24 hrs Laboratory Tests Test 09/15/16 12:42 09/15/16 16:10 09/15/16 20:47 09/15/16 23:59 Bedside Glucose 207 187 220 159 Test 09/16/16 04:30 09/16/16 05:38 09/16/16 08:34 Anion Gap 13 Basophils # 0.0 Basophils % 0.1 Blood Urea Nitrogen 70 H Calcium Level 7.7 L Carbon Dioxide Level 25 Chloride Level 112 H Creatinine 1.29 H Eosinophils # 0.0 Eosinophils % 0.0 Glucose Level 159 Hematocrit 33.4 L Hemoglobin 10.6 L Lymphocytes # 0.3 L Lymphocytes % 3.5 L Magnesium Level 2.4 Mean Corpuscular Hemoglobin 31.6 Mean Corpuscular Hemoglobin Concent 31.7 L Mean Corpuscular Volume 99.7 Mean Platelet Volume 14.7 H Monocytes # 0.4 Monocytes % 4.7 Neutrophils # 8.3 H Neutrophils % 90.5 H Nucleated Red Blood Cells # 0.0 Nucleated Red Blood Cells % 0.0 Phosphorus Level 3.1 Platelet Count 52 #L Potassium Level 3.7 Red Blood Count 3.35 L Red Cell Distribution Width 15.5 H Sodium Level 146 H White Blood Count 9.2 Bedside Glucose 155 216 Medications Medications Current Medications Flumazenil (Romazicon) 0.2 mg Q1M PRN IV BENZODIAZEPINE OVERDOSE; Start at 16:30 Naloxone HCl (Narcan) 0.4 mg Q3M PRN IV DECREASED REPIRATORY RATE; Start at 16:30 Ondansetron HCl (Zofran Inj) 4 mg Q6H PRN IV NAUSEA AND/OR VOMITING; Start 06/15 at 16:30 Nitroglycerin (Nitroglycerin (Sl Tab) 0.4 Mg) 1 tab Q5M PRN SL CHEST PAIN; Start 09/08/16 at 16:30 Acetaminophen (Tylenol Liquid) 650 mg Q6H PRN PO PAIN LEVEL 1-3 OR FEVER Last administered on 09/09/16t 09:23; Admin Dose 650 MG; Start 09/08/16 at 16:30 Acetaminophen (Tylenol Tab) 650 mg Q6H PRN PO PAIN LEVEL 1-3 OR FEVER; Start at 16:30 Acetaminophen (Tylenol Supp) 650 mg Q4H PRN [place] PAIN LEVEL 1-3 OR FEVER; Start 09/08/16 at 16:30 Lorazepam (Ativan) 1 mg Q2H PRN IV ANXIETY Last administered on 09/15/16 01:49 ; Admin Dose 1 MG; Start 09/08/16 at 16:30 Docusate Sodium (Colace) 100 mg Q12H PRN PO CONSTIPATION; Start 09/08/16 at 16: 30 Magnesium Hydroxide (Milk Of Mag) 30 ml DAILY PRN PO CONSTIPATION; Start at 16:30 Bisacodyl (Dulcolax) 5 mg DAILY PRN PO CONSTIPATION; Start 09/08/16 at 16:30 Pantoprazole 40 mg 40 mg DAILY@06 IV Last administered on 09/16/16 05:37; Admin Dose 40 MG; Start 09/09/16 at 06:00 Midazolam HCl (Versed) 50 ml @ 1 mls/hr TITRATE IV Last administered on 21:21; Admin Dose 5 MLS/HR; Start 09/09/16 at 01:00 Hydrocortisone 50 mg 50 mg Q8 IV Last administered on 09/16/16 05:37; Admin Dose 50 MG; Start 09/09/16 at 09:30 Norepinephrine 16 mg/Dextrose 500 ml @ 0 mls/hr TITRATE IV Last administered on 09/10/16 21:10; Admin Dose 22.5 MLS/HR; Start 09/09/16 at 16:00 Dextrose/Sodium Chloride 1,000 ml @ 20 mls/hr Q24H IV Last administered on 21:15; Admin Dose 20 MLS/HR; Start 09/12/16 at 08:00 Piperacillin Sod/ Tazobactam Sod (Zosyn 2.25gm/ 50ml (Pmx)) 50 ml @ 100 mls/hr Q6 IVPB Last administered on 09/16/16 05:37; Admin Dose 100 MLS/HR; Start at 12:00 Mupirocin (Bactroban) 1 applic BID TOP Last administered on 09/16/16 08:42; Admin Dose 1 APPLIC; Start 09/12/16 at 13:30 Insulin Aspart (Novolog Insulin Pen) NOVOLOG *MILD* ALGORI... Q4 SC Last administered on 09/16/16 08:41; Admin Dose 2 UNIT; Start 09/12/16 at 13:00 Miscellaneous Information 1 ea NOTE XX ; Start 09/12/16 at 12:30 Glucose (Glutose) 15 gm Q15M PRN PO DECREASED GLUCOSE; Start 09/12/16 at 12:30 Glucose (Glutose) 22.5 gm Q15M PRN PO DECREASED GLUCOSE; Start 09/12/16 at 12: 30 Dextrose (D50w Syringe) 25 ml Q15M PRN IV DECREASED GLUCOSE; Start 09/12/16 at 12:30 Dextrose (D50w Syringe) 50 ml Q15M PRN IV DECREASED GLUCOSE; Start 09/12/16 at 12:30 Glucagon (Glucagen) 1 mg Q15M PRN IM DECREASED GLUCOSE; Start 09/12/16 at 12:30 Glucose 15 gm 15 gm Q15M PRN BUCCAL DECREASED GLUCOSE; Start 09/12/16 at 12:30 Vancomycin HCl 750 mg/Sodium Chloride 150 ml @ 75 mls/hr Q36H IVPB Last administered on 09/15/16 22:30; Admin Dose 75 MLS/HR; Start 09/14/16 at 11:00 Dopamine HCl/ Dextrose 250 ml @ 5.333 mls/ hr TITRATE IV Last administered on 09/16/16 07:11; Admin Dose 5.333 MLS/HR; Start 09/14/16 at 09:00 Potassium Chloride (Klor-Con 20) 20 meq BID PO Last administered on 09/16/16 08:39; Admin Dose 20 MEQ; Start 09/15/16 at 16:00 Furosemide (Lasix) 20 mg DAILY IV Last administered on 09/16/16 08:40; Admin Dose 20 MG; Start 09/16/16 at 09:00 Insulin Glargine (Lantus) 8 unit DAILY@08 SC ; Start 09/16/16 at 10:00 SUNITA THOMAS 20, 2017 09:52
[2016-09-16] MEDS ORDERED: INSULIN GLARGINE [LANtus] 3 ML PEN SC SCH (10:00)
--- NOTE | 2016-09-16 12:37 | RADRPT ---
PROCEDURE: CT Brain without contrast. CLINICAL INDICATION: Neurologic deficit TECHNIQUE: A CT of the brain was performed on multidetector high-resolution CT scanner utilizing a xial sections from the skull base through the vertex without contrast. One or more of the following dose reduction techniques were used: Automated exposure control, Adjustment of the mA and/or kV acc ording to patient size, and/or use of iterative reconstruction technique. DOSE: CTDI = 43 mGy and the DLP = 630 mGy-cm. COMPARISON: Head CT 01/23/2009 FINDINGS: No acute intracranial hemorrhage, significant mass effect or midline shift. Patchy hypoattenuation o f the cerebral white matter is compatible with moderate chronic microvascular ischemic changes. Jean ical encephalomalacia of the bilateral occipital lobes is new since 01/23/2009. Atherosclerotic calc ifications of the cavernous segments of the internal carotid arteries are seen. Prominence of the co rtical sulci and ventricles are related to moderate cerebral volume loss. No significant opacificat ion of the visualized paranasal sinuses or mastoids. Empty appearance of the sella turcica. IMPRESSION: No acute intracranial hemorrhage or significant mass effect. Moderate chronic microvascular disease and intracranial atherosclerosis. 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 If there is concern for acute ischemia, consider brain MRI for further evaluation. RPTAT: AA .Zeyad Coleman MD, MD Date Time Electronically viewed and signed by .Zeyad Coleman MD, MD on 09/16/2016 12:36 .T/
[2016-09-16] MEDS ORDERED: SOD CHLORIDE 0.9% 1,000 ML IV ONE (15:00)
[2016-09-16] MEDS ORDERED: PHENYLephrine 20MG IN 250 ML 250 ML IV SCH (15:00)
[2016-09-16 15:06] LABS: AADO2 Arterial 113.8 mmHg (7.0-24.0); Allen Test ACCEPTAB; Arterial Base Excess -6.3 mmol/L (-3.0-3); Arterial COHb 0.2 % (0.0-3.0); Arterial Fraction of Oxyhgb 95.4 % (93.0-99.0); Arterial HCO3 14.6 mmol/L (22.0-26.0); Arterial MetHb 0.3 % (0.0-1.5); Arterial Total Hemglobin 10.2 g/dl (12.0-18.0); MODE VENT - AC
--- NOTE | 2016-09-16 15:42 | PN ---
DATE: 09/16/2016 SUBJECTIVE: The patient, Bette Yen remains mostly somnolent on mechanical ventilation. Grimaces to painful stimuli, but not opening eyes or following commands. She continues dopamine for bradycar farrah and hypotension. PHYSICAL EXAMINATION: VITAL SIGNS: Temperature 98, pulse 75, blood pressure 92/71, O2 saturation 96%, FIO2 of 30%, orally intubated. HEENT: Dry mucous membranes. Pupils equal and reactive to light. CARDIAC: S1, S2, no added sounds or murmurs. CHEST: Diminished air entry bilaterally. ABDOMEN: Mildly distended, soft, nontender. No guarding or rebound. EXTREMITIES: No cyanosis, clubbing, edema. NEUROLOGIC: Generalized weakness. LABORATORY DATA: White count 9.2, hemoglobin 10.6, platelets of 52. BUN 70, creatinine 1.29. IMPRESSION AND PLAN: 1. Hypoxemic respiratory failure. Continues mechanical ventilation with evidence of large right pl eural effusion and possible underlying pneumonia. 2. Encephalopathy, likely toxic metabolic. However, no CT scan of the head has been performed. I will order this to exclude CVA. The patient may require MRI. Would consider neurology evaluation. 3. Dysphagia, currently unable to tolerate p.o.s. Continue tube feeding. 4. History of coagulopathy, now improving. 5. Paroxysmal atrial fibrillation, rate controlled. 6. Septic shock, continues vasopressor support. Overall, prognosis remains guarded. I would arran for family conference to discuss goals of care and assist with plans. CRITICAL CARE TIME: 40 minutes. Dictated By: JEREMY GREEN/WILLIAN Conf#: [id number] DID#: [id number]
[2016-09-16] MEDS: PHENYLephrine 40 MG in DEXTROSE 5% 496 ML IV SCH ×2 (15:53→18:11)
[2016-09-16] MEDS ORDERED: HYDROCORTISONE 100 MG INJ IV SCH (16:00)
[2016-09-16] MEDS ORDERED: SOD CHLORIDE 0.9% 500 ML IV ONE (16:00)
--- NOTE | 2016-09-16 17:14 | PN ---
Date/Time of Note Date/Time of Note DATE: 09/16/16 TIME: 17:12 Assessment/Plan VTE Prophylaxis VTE Prophylaxis Intervention: other Lines/Catheters IV Catheter Type (from Nrs): Central Line Central line still needed: Yes Urinary Cath still in place: Yes Reason Cath still needed: urinary retention Assessment/Plan Chief Complaint/Hosp Course IMPRESSION: 1. Acute ventilator-dependent respiratory failure, severe sepsis. The patient has acute kidney injury, hypernatremia, free water deficit. 2. Metabolic acidosis. The patient has nstemi myocardial infarction. 3. Anemia. 4 hypokalemia 5 ecolisepsis 6 thrombocytopeni7 pul edema plan antibiotic PER PULMONARY POOR PROGNOSIS Problems: Subjective 24 Hr Interval Summary Subjective hx not possible: other (ON VENT) Exam/Review of Systems Vital Signs Vitals Vital Signs Date Time Temp Pulse Resp B/P Pulse Ox O2 Delivery O2 Flow Rate FiO2 09/16/16 16:16 75/59 09/16/16 16:00 52 09/16/16 15:47 Mechanical Ventilator 09/16/16 15:30 34 09/16/16 14:30 98 09/16/16 13:44 30 09/16/16 12:15 97.5 Intake and Output 09/15/16 09/15/16 09/16/16 15:00 23:00 07:00 Intake Total 500 ml 530 ml 890 ml Output Total 455 ml 285 ml 300 ml Balance 45 ml 245 ml 590 ml Exam Neck: supple Respiratory: diminished breath sounds Cardiovascular: regular rate and rhythm Gastrointestinal: bowel sounds (+), soft Extremities: edema (+) Results Result Diagram: 09/16/16 0430 09/16/16 0430 Results 24 hrs Laboratory Tests Test 09/15/16 20:47 09/15/16 23:59 09/16/16 04:30 09/16/16 05:38 Bedside Glucose 220 159 155 Anion Gap 13 Basophils # 0.0 Basophils % 0.1 Blood Urea Nitrogen 70 H Calcium Level 7.7 L Carbon Dioxide Level 25 Chloride Level 112 H Creatinine 1.29 H Eosinophils # 0.0 Eosinophils % 0.0 Glucose Level 159 Hematocrit 33.4 L Hemoglobin 10.6 L Lymphocytes # 0.3 L Lymphocytes % 3.5 L Magnesium Level 2.4 Mean Corpuscular Hemoglobin 31.6 Mean Corpuscular Hemoglobin Concent 31.7 L Mean Corpuscular Volume 99.7 Mean Platelet Volume 14.7 H Monocytes # 0.4 Monocytes % 4.7 Neutrophils # 8.3 H Neutrophils % 90.5 H Nucleated Red Blood Cells # 0.0 Nucleated Red Blood Cells % 0.0 Phosphorus Level 3.1 Platelet Count 52 #L Potassium Level 3.7 Red Blood Count 3.35 L Red Cell Distribution Width 15.5 H Sodium Level 146 H White Blood Count 9.2 Test 09/16/16 08:34 09/16/16 12:52 09/16/16 14:58 09/16/16 15:43 Bedside Glucose 216 207 163 Arterial Blood HCO3 14.6 L Arterial Blood Base Excess -6.3 L Arterial Blood Oxygen Saturation 95.9 Christofer Test ACCEPTAB Arterial Blood Gas Puncture Site Right Radial Arterial Blood Carboxyhemoglobin 0.2 Arterial Blood Date Drawn 09/16/2016 2:50:17 PM Arterial Blood Methemoglobin 0.3 Arterial Blood pCO2 (Temp correct) 17.9 L Arterial Blood pH (Temp corrected) 7.528 H Arterial Blood pO2 (Temp corrected) 79.1 L Blood Gas A-a O2 Differential 113.8 H Blood Gas Actual Respiration Rate 30 Blood Gas Low PEEP Setting 5.0 Blood Gas Modality VENT - AC Blood Gas Notified Time 09/16/2016 3:05:58 PM Blood Gas Notified Whom JLD Blood Gas Respiration Rate 14.0 Blood Gas Specimen Source Blood arterial Blood Gas Temperature 37.0 Blood Gas Tidal Volume 450.0 FiO2 30.0 Oxyhemoglobin Percent 95.4 Total Hemoglobin 10.2 L Medications Medications Current Medications Flumazenil (Romazicon) 0.2 mg Q1M PRN IV BENZODIAZEPINE OVERDOSE; Start at 16:30 Naloxone HCl (Narcan) 0.4 mg Q3M PRN IV DECREASED REPIRATORY RATE; Start at 16:30 Ondansetron HCl (Zofran Inj) 4 mg Q6H PRN IV NAUSEA AND/OR VOMITING; Start 06/15 at 16:30 Nitroglycerin (Nitroglycerin (Sl Tab) 0.4 Mg) 1 tab Q5M PRN SL CHEST PAIN; Start 09/08/16 at 16:30 Acetaminophen (Tylenol Liquid) 650 mg Q6H PRN PO PAIN LEVEL 1-3 OR FEVER Last administered on 09/09/16t 09:23; Admin Dose 650 MG; Start 09/08/16 at 16:30 Acetaminophen (Tylenol Tab) 650 mg Q6H PRN PO PAIN LEVEL 1-3 OR FEVER; Start at 16:30 Acetaminophen (Tylenol Supp) 650 mg Q4H PRN WA PAIN LEVEL 1-3 OR FEVER; Start 09/08/16 at 16:30 Lorazepam (Ativan) 1 mg Q2H PRN IV ANXIETY Last administered on 09/15/16 01:49 ; Admin Dose 1 MG; Start 09/08/16 at 16:30 Docusate Sodium (Colace) 100 mg Q12H PRN PO CONSTIPATION; Start 09/08/16 at 16: 30 Magnesium Hydroxide (Milk Of Mag) 30 ml DAILY PRN PO CONSTIPATION; Start at 16:30 Bisacodyl (Dulcolax) 5 mg DAILY PRN PO CONSTIPATION; Start 09/08/16 at 16:30 Pantoprazole 40 mg 40 mg DAILY@06 IV Last administered on 09/16/16 05:37; Admin Dose 40 MG; Start 09/09/16 at 06:00 Midazolam HCl (Versed) 50 ml @ 1 mls/hr TITRATE IV Last administered on 21:21; Admin Dose 5 MLS/HR; Start 09/09/16 at 01:00 Hydrocortisone 50 mg 50 mg Q8 IV Last administered on 09/16/16 13:09; Admin Dose 50 MG; Start 09/09/16 at 09:30 Norepinephrine 16 mg/Dextrose 500 ml @ 0 mls/hr TITRATE IV Last administered on 09/16/16 14:47; Admin Dose 56.25 MLS/HR; Start 09/09/16 at 16:00 Dextrose/Sodium Chloride 1,000 ml @ 20 mls/hr Q24H IV Last administered on 21:15; Admin Dose 20 MLS/HR; Start 09/12/16 at 08:00 Piperacillin Sod/ Tazobactam Sod (Zosyn 2.25gm/ 50ml (Pmx)) 50 ml @ 100 mls/hr Q6 IVPB Last administered on 09/16/16 12:56; Admin Dose 100 MLS/HR; Start at 12:00 Mupirocin (Bactroban) 1 applic BID TOP Last administered on 09/16/16 08:42; Admin Dose 1 APPLIC; Start 09/12/16 at 13:30 Insulin Aspart (Novolog Insulin Pen) NOVOLOG *MILD* ALGORI... Q4 SC Last administered on 09/16/16 12:57; Admin Dose 2 UNIT; Start 09/12/16 at 13:00 Miscellaneous Information 1 ea NOTE XX ; Start 09/12/16 at 12:30 Glucose (Glutose) 15 gm Q15M PRN PO DECREASED GLUCOSE; Start 09/12/16 at 12:30 Glucose (Glutose) 22.5 gm Q15M PRN PO DECREASED GLUCOSE; Start 09/12/16 at 12: 30 Dextrose (D50w Syringe) 25 ml Q15M PRN IV DECREASED GLUCOSE; Start 09/12/16 at 12:30 Dextrose (D50w Syringe) 50 ml Q15M PRN IV DECREASED GLUCOSE; Start 09/12/16 at 12:30 Glucagon (Glucagen) 1 mg Q15M PRN IM DECREASED GLUCOSE; Start 09/12/16 at 12:30 Glucose 15 gm 15 gm Q15M PRN BUCCAL DECREASED GLUCOSE; Start 09/12/16 at 12:30 Vancomycin HCl 750 mg/Sodium Chloride 150 ml @ 75 mls/hr Q36H IVPB Last administered on 09/15/16 22:30; Admin Dose 75 MLS/HR; Start 09/14/16 at 11:00 Dopamine HCl/ Dextrose 250 ml @ 5.333 mls/ hr TITRATE IV Last administered on 09/16/16 07:11; Admin Dose 5.333 MLS/HR; Start 09/14/16 at 09:00 Potassium Chloride (Klor-Con 20) 20 meq BID PO Last administered on 09/16/16 08:39; Admin Dose 20 MEQ; Start 09/15/16 at 16:00 Furosemide (Lasix) 20 mg DAILY IV Last administered on 09/16/16 08:40; Admin Dose 20 MG; Start 09/16/16 at 09:00 Insulin Glargine (Lantus) 8 unit DAILY@08 SC Last administered on 09/16/16 10: 21; Admin Dose 8 UNIT; Start 09/16/16 at 10:00 Miscellaneous Information 1 ONCE ONCE XX ; Start 09/17/16 at 10:00; Stop at 10:01 Phenylephrine HCl 250 ml @ 75 mls/hr TITRATE IV Last administered on 14:57; Admin Dose 75 MLS/HR; Start 09/16/16 at 15:00; Stop 09/16/16 at 18: 00 Phenylephrine HCl/ Dextrose (Andres-Syneph/D5W) 500 ml @ 75 mls/hr TITRATE IV Last administered on 09/16/16 15:53; Admin Dose 225 MLS/HR; Start 09/16/16 at 18:00 Hydrocortisone (Solu-Cortef) 100 mg Q12H IV Last administered on 09/16/16 16: 29; Admin Dose 100 MG; Start 09/16/16 at 16:00; Stop 09/17/16 at 04:01 ALLYN BERMUDEZ MD Sep 16, 2016 17:13
[2016-09-16] MEDS ORDERED: EPINEPHrine 4 MG in SOD CHLORIDE 0.9% 246 ML IV SCH (17:30)
--- NOTE | 2016-09-16 18:28 | EN ---
Date/Time of Note Date/Time of Note DATE: 09/16/16 TIME: 18:26 Event Note Medicine Medicine Event Note Asked to exam the patient who has . On examination. No heart sounds No breath sounds No response to stimuli Pupils fixed and dilated The patient at 1817 on 09/16/2016. Patient's next of kin at bedside during cardiac arrest. JEREMY ALCAZAR MD, [facility] Sep 16, 2016 18:28
--- NOTE | 2016-09-16 20:16 | EN ---
Date/Time of Note Date/Time of Note DATE: 09/16/16 TIME: 20:14 ER Progress Note I was called to the ICU for a CODE BLUE. The patient was bradycardic then became asystolic. She was already intubated upon admission. Compressions were immediately started. The patient is currently on dopamine, Levophed, and phenylephrine and is maxed out. She presented initially with septic shock secondary to pneumonia and non-ST elevation NC. Cardiopulmonary Resuscitation by me: See code documentation for specific details. ACLS and BLS were performed with high quality chest compressions and minimal interruptions. Reversible causes were assessed and treated. She had return of spontaneous circulation with a very faint, thready carotid pulse. She was subsequently significantly hypotensive. I spoke with Dr. Nancy Schmidt, the admitting physician, and recommended epinephrine infusion. EKG: Rate/Rhythm: Atrial fibrillation at 94 bpm QRS, ST, T-waves: Low voltage, no changes consistent w/ acute ischemia Impression: No evidence of ischemia or arrhythmia MARINA MELTON MD Sep 16, 2016 20:16
--- NOTE | 2016-09-18 08:20 | RADRPT ---
Vent Rate: 94 bpm RR Interval: 0 msec TX Interval: 0 msec QRS Duration: 74 msec QT Interval: 360 msec QTC Interval: 450 msec P-R-T Mystic: 0 - 30 - 0 degrees Atrial fibrillation Low voltage QRS Cannot rule out Anterior infarct , age undetermined Abnormal ECG Electronically Signed By: Martín Camarillo [id number]
== END 2016-09-16 18:17 | disposition expired | DRG 870 ==
LOC: E/R 11:50 → ICU 13:10
PROVIDERS: ADMIT Internal Medicine Nephrology; ATTEND Internal Medicine Nephrology
PROC: 05H533Z Insertion of Infusion Device into Right Subclavian Vein, Percutaneous Approach (ICD-10-PCS; principal; 2016-09-08)
PROC: 5A1955Z Respiratory Ventilation, Greater than 96 Consecutive Hours (ICD-10-PCS; 2016-09-08)
PROC: 5A12012 Performance of Cardiac Output, Single, Manual (ICD-10-PCS; 2016-09-08)
PROC: 0BH17EZ Insertion of Endotracheal Airway into Trachea, Via Natural or Artificial Opening (ICD-10-PCS; 2016-09-08)
PROC: 5A2204Z Restoration of Cardiac Rhythm, Single (ICD-10-PCS; 2016-09-08)
DX: A41.51 Sepsis due to Escherichia coli [E. coli] (principal); I21.4 Non-ST elevation (NSTEMI) myocardial infarction; I46.9 Cardiac arrest, cause unspecified; R65.21 Severe sepsis with septic shock; G92 Toxic encephalopathy; J18.9 Pneumonia, unspecified organism; J96.02 Acute respiratory failure with hypercapnia; J96.01 Acute respiratory failure with hypoxia; I13.0 Hypertensive heart and chronic kidney disease with heart failure and stage 1 through stage 4 chronic kidney disease, or unspecified chronic kidney disease; N17.9 Acute kidney failure, unspecified; E87.0 Hyperosmolality and hypernatremia; I50.9 Heart failure, unspecified; E87.2 Acidosis; N39.0 Urinary tract infection, site not specified; I48.0 Paroxysmal atrial fibrillation; R13.10 Dysphagia, unspecified; D69.6 Thrombocytopenia, unspecified; R00.1 Bradycardia, unspecified; D64.9 Anemia, unspecified; J44.9 Chronic obstructive pulmonary disease, unspecified; E86.0 Dehydration; I25.10 Atherosclerotic heart disease of native coronary artery without angina pectoris; N18.9 Chronic kidney disease, unspecified; E87.6 Hypokalemia; Z79.52 Long term (current) use of systemic steroids; Z79.01 Long term (current) use of anticoagulants
CPT/HCPCS: 31500; 36415; 36600; 70450; 71010; 80048; 80053; 80061; 80162; 80202; 81001; 81003; 82550; 82553; 82565; 82803; 82962; 83036; 83605; 83735; 83880; 84100; 84132; 84443; 84484; 84520; 85025; 85610; 85730; 86022; 87040; 87075; 87081; 87086; 92950; 93005; 93306; 94002; 94003; 94640; 94644; 94770; 96361; 96365; 96366; 96367; 96368; 96375; 96376; J1940; C9113; J0171; J0692; J1265; J1644; J1720; J1815; J2060; J2370; J2543; J3370; J3480; J7030; J7040; J7042; J7050; J7060